=== PATIENT | female | born 1960 | race African-American/Black ===

== ENCOUNTER 2018-04-14 11:37 | Inpatient (IN) | payer OTHER ==
--- NOTE | 2018-04-14 12:09 | PDOC ---
History of Present Illness - General Chief Complaint: Weakness Stated Complaint: WEAKNESS Time Seen by Provider: 04/14/18 12:09 History Source: Patient Exam Limitations: No Limitations - History of Present Illness Initial Comments: 04/14/18 13:43 Ms Matthew is a 58 yo F with a hx of DM, HTN, asthma, and HLD presenting today with leg weakness and generalized fatigue. She states for the past month she has been having progressive generalized fatigue. At 6am, she states her legs collapsed on her when she tried to use the bathroom. Per her home health aide, she has had progressive weakness throughout the past month with difficulty walking across a room. She states that she has become acutely more lethargic. Ms. Matthew denies the following: fever, headache, recent visual changes, SOB, chest pain, abdominal pain, dysuria, hematuria, diarrhea, melena, hematochezia, and vomiting. Endorses leg weakness at the knees bilaterally. Pmhx: HLD, DM, Asthma, HTN Shx: carpal tunnel bilaterally Medications: refer to chart. does take Aspirin 81 mg Allergies: NKDA Social: denies smoking, alcohol, and drug use 04/14/18 15:18 04/14/18 15:40 Past History - Past Medical History Allergies/Adverse Reactions: Allergies Allergy/AdvReac Type Severity Reaction Status Date / Time No Known Allergies Allergy Verified 02/15/15 09:33 Home Medications: Ambulatory Orders Unobtainable 04/14/18 Review of Systems - Review of Systems Constitutional: No: Chills, Diaphoresis, Fever HEENTM: No: Recent change in vision, Nose Pain, Throat Pain, Mouth Pain Respiratory: No: Cough, Shortness of Breath Cardiac (ROS): No: Chest Pain, Palpitations, Syncope ABD/GI: No: Constipated, Diarrhea, Nausea, Rectal Bleeding, Vomiting, Tarry Stools : No: Burning, Dysuria, Hematuria Musculoskeletal: Yes: Back Pain Integumentary: No: Rash Neurological: Yes: Weakness, Unsteady Gait (now having to use a walker when previously did not need to today). No: Headache, Numbness Psychiatric: No: Change in Appetite Endocrine: No: Unexplained Weight Gain Hematologic/Lymphatic: No: Anemia *Physical Exam - Physical Exam General Appearance: Yes: Nourished, Appropriately Dressed, Other (lethargic during interview. ) HEENT: positive: EOMI, KIESHA, Normal Voice Neck: negative: Lymphadenopathy (R), Lymphadenopathy (L) Respiratory/Chest: positive: Lungs Clear, Normal Breath Sounds Cardiovascular: positive: Regular Rhythm, Regular Rate, S1, S2. negative: Systolic Murmur Gastrointestinal/Abdominal: positive: Normal Bowel Sounds. negative: Tender Lymphatic: negative: Adenopathy Musculoskeletal: negative: CVA Tenderness (R), CVA Tenderness (L) Extremity: positive: Normal Capillary Refill, Other (pitting edema bilaterally) Integumentary: positive: Normal Color, Dry, Warm Neurologic: positive: manager relationship II-XII NML intact, Fully Oriented, Alert, Motor Strength 5/5, Depressed Affect ED Treatment Course - LABORATORY CBC & Chemistry Diagram: 04/14/18 12:32 04/14/18 12:32 Medical Decision Making - Medical Decision Making 04/14/18 15:22 Ms. Matthew is a 58 yo DM, HTN, HLD, and asthma who presents to the ED with weakness. PE reveals her to be lethargic, but grossly WNL except for the pitting edema. She denies hx of CHF, SC, or CVA. DDX: sepsis vs cardiac (acs r/o ), vs metabolic (hypoglycemia as a DM, hyponatremia) Initial vitals: Initial Vital Signs Temp Pulse Resp BP Pulse Ox 99.3 F 101 H 18 71/52 99 04/14/18 12:08 04/14/18 12:08 04/14/18 12:08 04/14/18 12:08 04/14/18 12:08 Work up: Laboratory Results - last 24 hr 04/14/18 04/14/18 04/14/18 12:32 12:32 12:32 WBC 11.5 H RBC 4.63 Hgb 13.3 Hct 41.2 MCV 88.9 MCH 28.7 MCHC 32.2 RDW 14.2 Plt Count 240 MPV 8.7 Absolute Neuts (auto) 6.3 Neutrophils % 54.5 Lymphocytes % 32.4 Monocytes % 7.4 Eosinophils % 4.7 H Basophils % 1.0 Nucleated RBC % 0 PT with INR Cancelled INR Cancelled PTT (Actin FS) Sodium 137 Potassium 3.9 Chloride 101 Carbon Dioxide 26 Anion Gap 10 BUN 20 H Creatinine 4.4 H Creat Clearance w eGFR 10.30 Random Glucose 220 H Lactic Acid Calcium 8.7 Total Bilirubin 0.5 AST 17 ALT 23 Alkaline Phosphatase 70 Creatine Kinase 129 Troponin I < 0.02 Total Protein 6.6 Albumin 3.6 Urine Color Urine Appearance Urine pH Ur Specific [place] Urine Protein Urine Glucose (UA) Urine Ketones Urine Blood Urine Nitrite Urine Bilirubin Urine Urobilinogen Ur Leukocyte Esterase Blood Type Antibody Screen 04/14/18 04/14/18 04/14/18 12:32 13:22 13:22 WBC RBC Hgb Hct MCV MCH MCHC RDW Plt Count MPV Absolute Neuts (auto) Neutrophils % Lymphocytes % Monocytes % Eosinophils % Basophils % Nucleated RBC % PT with INR INR PTT (Actin FS) Sodium Potassium Chloride Carbon Dioxide Anion Gap BUN Creatinine Creat Clearance w eGFR Random Glucose Lactic Acid 2.1 H Calcium Total Bilirubin AST ALT Alkaline Phosphatase Creatine Kinase Troponin I Total Protein Albumin Urine Color Urine Appearance Urine pH Ur Specific [place] Urine Protein Urine Glucose (UA) Urine Ketones Urine Blood Urine Nitrite Urine Bilirubin Urine Urobilinogen Ur Leukocyte Esterase Blood Type O POSITIVE O POSITIVE Antibody Screen Negative 04/14/18 04/14/18 13:22 14:00 WBC RBC Hgb Hct MCV MCH MCHC RDW Plt Count MPV Absolute Neuts (auto) Neutrophils % Lymphocytes % Monocytes % Eosinophils % Basophils % Nucleated RBC % PT with INR 11.80 INR 1.04 PTT (Actin FS) 29.7 Sodium Potassium Chloride Carbon Dioxide Anion Gap BUN Creatinine Creat Clearance w eGFR Random Glucose Lactic Acid Calcium Total Bilirubin AST ALT Alkaline Phosphatase Creatine Kinase Troponin I Total Protein Albumin Urine Color Yellow Urine Appearance Slcloudy Urine pH 5.0 Ur Specific [place] 1.022 Urine Protein Negative Urine Glucose (UA) 3+ H Urine Ketones Negative Urine Blood Negative Urine Nitrite Negative Urine Bilirubin 2.0 Urine Urobilinogen 2.0 H Ur Leukocyte Esterase Negative Blood Type Antibody Screen Her vitals initially had a 71/52. 1 liter NS showed mild improvement of SBP to SBPs in the 90s. Second order of 1 liter of NS had a resulting BP of 145/73. Pt is more alert after the second liter. Based on the YOGESH and persistant weakness with elevated lactic acid and WBC, she will be admitted. 04/14/18 15:29 04/14/18 15:41 *DC/Admit/Observation/Transfer Diagnosis at time of Disposition: YOGESH (acute kidney injury), Weakness - Discharge Dispostion Decision to Admit order: Yes - Referrals - Patient Instructions - Post Discharge Activity
[2018-04-14] MEDS ORDERED: SODIUM CHLORIDE 1,000 ML IV STA ×2 (12:54→14:45)
[2018-04-14 13:38] LABS: EOS % 4.7 % (0-4.5); HEMATOCRIT 41.2 % (32.4-45.2); HEMOGLOBIN 13.3 GM/dL (10.7-15.3); LYMPH % 32.4 % (8-40); MCH 28.7 pg (25.7-33.7); MCHC 32.2 g/dl (32.0-36.0); MEAN CELL VOLUME 88.9 fl (80-96); MEAN PLT VOLUME 8.7 fl (7.5-11.1); MONO % 7.4 % (3.8-10.2); NEUT % 54.5 % (42.8-82.8); PLATELET COUNT 240 K/MM3 (134-434); RBC 4.63 M/mm3 (3.60-5.2); RDW 14.2 % (11.6-15.6); WHITE BLOOD COUNT 11.5 K/mm3 (4.0-10.0)
[2018-04-14 14:04] LABS: ALBUMIN 3.6 g/dl (3.4-5.0); ANION GAP 10 (8-16); BILIRUBIN,TOTAL 0.5 mg/dL (0.2-1.0); BLOOD UREA NITROGEN 20 mg/dL (7-18); CALCIUM 8.7 mg/dL (8.5-10.1); CHLORIDE 101 mmol/L (98-107); CO2 26 mmol/L (21-32); CREATININE 4.4 mg/dL (0.55-1.02); GLUCOSE,RANDOM 220 mg/dL (74-106); POTASSIUM 3.9 mmol/L (3.5-5.1); SGOT/AST 17 U/L (15-37); SGPT/ALT 23 U/L (12-78); SODIUM 137 mmol/L (136-145); TOT PROT 6.6 g/dl (6.4-8.2)
[2018-04-14 14:06] LABS: ALK PHOS 70 U/L (45-117)
[2018-04-14 14:13] LABS: URINE APPEARANCE SLCLOUDY; URINE GLUCOSE (UA) 3+ (NEGATIVE); URINE KETONE NEGATIVE (NEGATIVE); URINE LEUK ESTERASE NEGATIVE (NEGATIVE); URINE NITRITE NEGATIVE (NEGATIVE); URINE PROTEIN NEGATIVE (NEGATIVE)
[2018-04-14 14:24] LABS: URINE COLOR YELLOW
[2018-04-14 14:45] LABS: ACTIVATED PTT 29.7 SECONDS (25.2-36.5)
[2018-04-14 14:59] LABS: INR 1.04 (0.83-1.09); PROTHROMBIN TIME (PATIENT) 11.8 SEC (9.7-13.0)
--- NOTE | 2018-04-14 15:55 | PDOC ---
Attending Attestation - Resident Resident Name: Sebas Odell - ED Attending Attestation I have performed the following: I have examined & evaluated the patient, The case was reviewed & discussed with the resident, I agree w/resident's findings & plan, Exceptions are as noted - HPI HPI: 04/14/18 15:55 58 F with h/o DM, HTN, asthma, HLD presenting with generalized weakness. Pt states that she has been weak for about a month now, and it has progressively worsened. Pt states that today she felt her legs give out from under her. Denies falling to the floor or headstrike. Pt denies unilateral weakness. Denies CRUZ/N/V. Denies F/C. Denies CP/SOB. Pt states that she has chronic pain and has been taking oxycodone. - Physicial Exam PE: 04/14/18 15:57 "GENERAL: lethargic but arousable, in no acute distress. HEAD: No signs of trauma EYES: PERRLA, EOMI, sclera anicteric, conjunctiva clear ENT: Auricles normal inspection, hearing grossly normal, nares patent, oropharynx clear without exudates. Moist mucosa NECK: Nontender, no stepoffs, Normal ROM, supple, no lymphadenopathy, JVD, or masses LUNGS: Breath sounds equal, clear to auscultation bilaterally. No wheezes, and no crackles HEART: Regular rate and rhythm, normal S1 and S2, no murmurs, rubs or gallops ABDOMEN: Soft, nontender, normoactive bowel sounds. No guarding, no rebound. No masses EXTREMITIES: +2 PE BLE. No clubbing or cyanosis. No cords, erythema, or tenderness NEUROLOGICAL: Cranial nerves II through XII intact. 5/5 strength and sensation in all extremities, Normal speech, normal gait, normal cerebellar function SKIN: Warm, Dry, normal turgor, no rashes or lesions noted." - Medical Decision Making 04/14/18 15:57 58 F with generalized weakness. Vitals notable for hypotension and tachycardia. Afebrile in ED. Will evaluate for sepsis. Also consider dehydration. BLE edema suggestive of possible heart failure, though pt with no respiratory symptoms. - Labs, trop, cultures - CXR, UA - IVF
--- NOTE | 2018-04-14 16:23 | EKG ---
Test Reason : Blood Pressure : / mmHG Vent. Rate : 097 BPM Atrial Rate : 097 BPM P-R Int : 158 ms QRS Dur : 080 ms QT Int : 400 ms P-R-T Axes : 060 102 033 degrees QTc Int : 508 ms NORMAL SINUS RHYTHM POSSIBLE LEFT ATRIAL ENLARGEMENT RIGHTWARD AXIS CANNOT RULE OUT ANTERIOR INFARCT (CITED ON OR BEFORE 14-APR-2018) PROLONGED QT ABNORMAL ECG WHEN COMPARED WITH ECG OF 27-JUN-2008 09:32, NO SIGNIFICANT CHANGE WAS FOUND Confirmed by Michael Spencer MD ([id number]) on 04/14/2018 4:23:17 PM Referred By: Confirmed By:Michael Spencer MD
--- NOTE | 2018-04-14 17:03 | HP ---
CHIEF COMPLAINT: weakness, fall this morning PCP: Dr. Elvin Wallace HISTORY OF PRESENT ILLNESS: This is a 58 year old female with PMHx of poorly controlled DM (last Hgb A1c 11.14 March 2018), renal insufficiency (last Cr 1.4), asthma, hyperlipidemia, chronic lower back pain, obesity, obstructive sleep apnea, GERD, hypthyroidism, who presented to the ED with lower extremity weakness x1 week and mechanical fall this morning. The patient reports she usually walks around with a can (pcp confirmed the patient came to the office with a walker) and that recently, over the past week, she has started to use her walker because of lower extremity weakness. She reports today her legs "gave way" and she fell. She denies any trauma or pain from the fall. She denies any shortness of breath, chest pain, headache, dizziness, visual changes, fever, chills, nausea, vomiting, diarrhea. ER course was notable for: (1) Temp 99.3, pulse 101, BP 71/52, resp 18, O2 99% on RA (2) WBC 11.5 (3) BUN 20, Cr 4.4 (5) Lactic acid 2.1 Recent Travel: denies PAST MEDICAL HISTORY: as above PAST SURGICAL HISTORY: Social History: Smoking: quit 21 years ago Alcohol: denies Drugs: denies Family History: Allergies No Known Allergies Allergy (Verified 02/15/15 09:33) HOME MEDICATIONS: Home Medications Medication Instructions Recorded Unobtainable 04/14/18 REVIEW OF SYSTEMS CONSTITUTIONAL: Lower extremity weakness that began about 1 week ago. Absent: fever, chills, diaphoresis, malaise, loss of appetite, weight change HEENT: Absent: rhinorrhea, nasal congestion, throat pain, throat swelling, difficulty swallowing, mouth swelling, ear pain, eye pain, visual changes CARDIOVASCULAR: Absent: chest pain, syncope, palpitations, irregular heart rate, lightheadedness , peripheral edema RESPIRATORY: Absent: cough, shortness of breath, dyspnea with exertion, orthopnea, wheezing, stridor, hemoptysis GASTROINTESTINAL: Absent: abdominal pain, abdominal distension, nausea, vomiting, diarrhea, constipation, melena, hematochezia GENITOURINARY: Absent: dysuria, frequency, urgency, hesitancy, hematuria, flank pain, genital pain MUSCULOSKELETAL: Absent: myalgia, arthralgia, joint swelling, back pain, neck pain SKIN: Absent: rash, itching, pallor HEMATOLOGIC/IMMUNOLOGIC: Absent: easy bleeding, easy bruising, lymphadenopathy, frequent infections ENDOCRINE: Absent: unexplained weight gain, unexplained weight loss, heat intolerance, cold intolerance NEUROLOGIC: Absent: headache, focal weakness or paresthesias, dizziness, unsteady gait, seizure, mental status changes, bladder or bowel incontinence PSYCHIATRIC: Absent: anxiety, depression, suicidal or homicidal ideation, hallucinations. PHYSICAL EXAMINATION Vital Signs - 24 hr 04/14/18 04/14/18 04/14/18 12:08 12:30 12:45 Temperature 99.3 F Pulse Rate 101 H Pulse Rate [ 96 H 94 H Apical] Respiratory 18 20 20 Rate Blood Pressure 71/52 Blood Pressure 111/97 87/72 [Left Arm] O2 Sat by Pulse 99 98 98 Oximetry (%) 04/14/18 04/14/18 04/14/18 12:55 13:00 13:45 Temperature 98.9 F Pulse Rate Pulse Rate [ 94 H 95 H 98 H Apical] Respiratory 18 18 16 Rate Blood Pressure Blood Pressure 77/48 92/37 83/41 [Left Arm] O2 Sat by Pulse 98 98 98 Oximetry (%) 04/14/18 04/14/18 04/14/18 14:30 14:58 15:20 Temperature Pulse Rate Pulse Rate [ 100 H 99 H 99 H Apical] Respiratory 16 16 18 Rate Blood Pressure Blood Pressure 92/70 88/49 84/59 [Left Arm] O2 Sat by Pulse 98 99 100 Oximetry (%) 04/14/18 15:40 Temperature Pulse Rate Pulse Rate [ 101 H Apical] Respiratory 20 Rate Blood Pressure Blood Pressure 103/59 [Left Arm] O2 Sat by Pulse 98 Oximetry (%) GENERAL: Awake, alert, and fully oriented, in no acute distress. HEAD: Normal with no signs of trauma. EYES: Pupils equal, round and reactive to light, extraocular movements intact, sclera anicteric, conjunctiva clear. No lid lag. EARS, NOSE, THROAT: Ears normal, nares patent, oropharynx clear without exudates. Moist mucous membranes. NECK: Normal range of motion, supple without lymphadenopathy, JVD, or masses. LUNGS: Breath sounds equal, clear to auscultation bilaterally. No wheezes, and no crackles. No accessory muscle use. HEART: Regular rate and rhythm, normal S1 and S2 without murmur, rub or gallop. ABDOMEN: Soft, nontender, not distended, normoactive bowel sounds, no guarding, no rebound, no masses. No hepatomegaly or splenomegaly. MUSCULOSKELETAL: Normal range of motion at all joints. No bony deformities or tenderness. No CVA tenderness. UPPER EXTREMITIES: 2+ pulses, warm, well-perfused. No cyanosis. No clubbing. No peripheral edema. LOWER EXTREMITIES: B/l lower extremity 1+ pitting edema. 2+ pulses, warm, well- perfused. No calf tenderness. NEUROLOGICAL: Cranial nerves II-XII intact. Normal speech. Gait not observed PSYCHIATRIC: Cooperative. Good eye contact. Appropriate mood and affect. SKIN: Warm, dry, normal turgor, no rashes or lesions noted, normal capillary refill. Laboratory Results - last 24 hr 04/14/18 04/14/18 04/14/18 12:32 12:32 12:32 WBC 11.5 H RBC 4.63 Hgb 13.3 Hct 41.2 MCV 88.9 MCH 28.7 MCHC 32.2 RDW 14.2 Plt Count 240 MPV 8.7 Absolute Neuts (auto) 6.3 Neutrophils % 54.5 Lymphocytes % 32.4 Monocytes % 7.4 Eosinophils % 4.7 H Basophils % 1.0 Nucleated RBC % 0 PT with INR Cancelled INR Cancelled PTT (Actin FS) Sodium 137 Potassium 3.9 Chloride 101 Carbon Dioxide 26 Anion Gap 10 BUN 20 H Creatinine 4.4 H Creat Clearance w eGFR 10.30 Random Glucose 220 H Lactic Acid Calcium 8.7 Total Bilirubin 0.5 AST 17 ALT 23 Alkaline Phosphatase 70 Creatine Kinase 129 Troponin I < 0.02 Total Protein 6.6 Albumin 3.6 Urine Color Urine Appearance Urine pH Ur Specific [place] Urine Protein Urine Glucose (UA) Urine Ketones Urine Blood Urine Nitrite Urine Bilirubin Urine Urobilinogen Ur Leukocyte Esterase Blood Type Antibody Screen 04/14/18 04/14/18 04/14/18 12:32 13:22 13:22 WBC RBC Hgb Hct MCV MCH MCHC RDW Plt Count MPV Absolute Neuts (auto) Neutrophils % Lymphocytes % Monocytes % Eosinophils % Basophils % Nucleated RBC % PT with INR INR PTT (Actin FS) Sodium Potassium Chloride Carbon Dioxide Anion Gap BUN Creatinine Creat Clearance w eGFR Random Glucose Lactic Acid 2.1 H Calcium Total Bilirubin AST ALT Alkaline Phosphatase Creatine Kinase Troponin I Total Protein Albumin Urine Color Urine Appearance Urine pH Ur Specific [place] Urine Protein Urine Glucose (UA) Urine Ketones Urine Blood Urine Nitrite Urine Bilirubin Urine Urobilinogen Ur Leukocyte Esterase Blood Type O POSITIVE O POSITIVE Antibody Screen Negative 04/14/18 04/14/18 13:22 14:00 WBC RBC Hgb Hct MCV MCH MCHC RDW Plt Count MPV Absolute Neuts (auto) Neutrophils % Lymphocytes % Monocytes % Eosinophils % Basophils % Nucleated RBC % PT with INR 11.80 INR 1.04 PTT (Actin FS) 29.7 Sodium Potassium Chloride Carbon Dioxide Anion Gap BUN Creatinine Creat Clearance w eGFR Random Glucose Lactic Acid Calcium Total Bilirubin AST ALT Alkaline Phosphatase Creatine Kinase Troponin I Total Protein Albumin Urine Color Yellow Urine Appearance Slcloudy Urine pH 5.0 Ur Specific [place] 1.022 Urine Protein Negative Urine Glucose (UA) 3+ H Urine Ketones Negative Urine Blood Negative Urine Nitrite Negative Urine Bilirubin 2.0 Urine Urobilinogen 2.0 H Ur Leukocyte Esterase Negative Blood Type Antibody Screen Assessment: This is a 58 year old female with PMHx of poorly controlled DM ( last Hgb A1c 11.14 March 2018), renal insufficiency (last Cr 1.4), asthma, hyperlipidemia, chronic lower back pain, obesity, obstructive sleep apnea, GERD , hypothyroidism, who presented to the ED with lower extremity weakness x1 week and mechanical fall this morning. Plan: 1) YOGESH on CKD - Obstructive vs. ATN? - Patient has a history of renal insufficiency. Discussed with patient's pcp, Cr 1.8 on 03/25, repeat last week 1.4 - Patient denies any NSAID use - Patient is taking Lisinopril at home, will hold - Discussed with Dr. Mccormick, will repeat BMP now - F/u urine studies - F/u kidney ultrasound to r/o obstruction - F/u urology consult 2) Lower extremity edema - 2/2 YOGESH vs. new onset CHF? - F/u BNP - F/u b/l lower extremity dopplers 3) Poorly controlled DM - Patient has insulin pump, per hospital guidelines, patient cannot use own insulin pump - Recent HgbA1c March 2018 11.7 - BGM ACHS - ISS ACHS - F/u endocrinology consult for further recommendations 4) Hypothyroidism - Continue Synthroid 5) Obstructive sleep apnea 6) Lower extremity weakness - F/u PT consult 7) F/E/N: - Diabetic diet - Monitor electrolytes 8) Prophylaxis: - Heparin 5,000u sq bid - PT evaluation 9) Dispo: - Requires continued inpatient care CODE STATUS: FULL CODE Visit type - Emergency Visit Emergency Visit: Yes Care time: The patient presented to the Emergency Department on the above date and was hospitalized for further evaluation of their emergent condition. - New Patient This patient is new to me today: Yes Date on this admission: 04/14/18 - Critical Care Critical Care patient: No Hospitalist Screening - Colonoscopy Questionnaire Colonoscopy Questionnaire: Colonoscopy Questionnaire - Patient: 50 - 75 years old and never had a screening colonoscopy: No History of colon or rectal polyps, or CA: No History of IBD, Crohn's disease or UC: No History of abdominal radiation therapy as a child: No - Relative: 1 with colon or rectal CA, or polyps at age 60 or younger: Unknown Colon or rectal CA diagnosed at age 45 or younger: Unknown Multiple relatives with colon or rectal CA: Unknown - Outcome: Screening Result: Negative Screen
[2018-04-14] MEDS ORDERED: ALBUTEROL SO4 0.083% IH SOL 2.5 MG/3 ML VIAL.NEB. NEB PRN (17:32)
[2018-04-14] MEDS ORDERED: ROSUVASTATIN CA 10 MG TABLET (FP) PO ONE ×2 (17:45)
[2018-04-14] MEDS ORDERED: ROSUVASTATIN CA 20 MG TABLET (FP) PO ONE (17:45)
[2018-04-14] MEDS ORDERED: PANTOPRAZOLE 40 MG TABLET (FP) PO ONE (17:45)
[2018-04-14] MEDS ORDERED: EZETIMIBE 10 MG TABLET (FP) PO ONE (17:45)
[2018-04-14] MEDS ORDERED: LEVOTHYROXINE NA 50 MCG TABLET (FP) PO ONE (17:45)
[2018-04-14 18:02] LABS: ANION GAP 13 (8-16); BLOOD UREA NITROGEN 21 mg/dL (7-18); CALCIUM 8.5 mg/dL (8.5-10.1); CHLORIDE 105 mmol/L (98-107); CO2 23 mmol/L (21-32); CREATININE 4.5 mg/dL (0.55-1.02); GLUCOSE,RANDOM 224 mg/dL (74-106); POTASSIUM 4.1 mmol/L (3.5-5.1); SODIUM 141 mmol/L (136-145)
[2018-04-15] MEDS: INSULIN SLIDING SCALE (NOVOLOG) 1 VIAL SQ SCH ×5 (01:06→21:56)
[2018-04-15] MEDS ORDERED: INSULIN (NOVOLOG) ASPART 100 UNITS/ML 10ML VIAL ONE (02:09)
[2018-04-15 03:29] VITALS: BMI 43.6
[2018-04-15] MEDS ORDERED: SODIUM CHLORIDE 0.45% 1,000 ML IV SCH (08:00)
[2018-04-15] MEDS: oxyCODONE HCL 5 MG TABLET PO ONE ×2 (09:02→09:03)
[2018-04-15] MEDS: ASPIRIN COATED 81 MG TABLET.EC PO SCH (09:03)
--- NOTE | 2018-04-15 11:42 | PN ---
Progress Note (short form) - Note Progress Note: Subjective: The patient was seen and examined at the bedside, she states she is feeling better today. She has no complaints at this time. Current Medications Generic Name Dose Route Start Last Admin Trade Name Freroger PRN Reason Stop Dose Admin Albuterol Sulfate 1 amp 04/14/18 17:32 Ventolin 0.083% Nebulizer Soln - NEB RQID PRN ASTHMA Aspirin 81 mg 04/15/18 10:00 04/15/18 09:03 Ecotrin - PO 81 mg DAILY JO Administration Sodium Chloride 1,000 mls @ 42 mls/hr 04/15/18 08:00 04/15/18 09:03 1/2 Normal Saline IV 42 mls/hr ASDIR JO Administration Insulin Aspart 1 vial 04/14/18 22:00 04/15/18 06:56 Novolog Vial Sliding Scale - SQ 4 units ACHS JO Administration Protocol Objective: Vital Signs Period Temp Pulse Resp BP Sys/Urena Pulse Ox Last 24 Hr 97.8 F-99.8 F 68-102 14-20 71-120/37-97 85-100 Physical Exam: General: NAD, obese CBCD WBC 11.5 K/mm3 (4.0-10.0) H 04/14/18 12:32 RBC 4.63 M/mm3 (3.60-5.2) 04/14/18 12:32 Hgb 13.3 GM/dL (10.7-15.3) 04/14/18 12:32 Hct 41.2 % (32.4-45.2) 04/14/18 12:32 MCV 88.9 fl (80-96) 04/14/18 12:32 MCHC 32.2 g/dl (32.0-36.0) 04/14/18 12:32 RDW 14.2 % (11.6-15.6) 04/14/18 12:32 Plt Count 240 K/MM3 (134-434) 04/14/18 12:32 MPV 8.7 fl (7.5-11.1) 04/14/18 12:32 CMP Sodium 141 mmol/L (136-145) 04/14/18 17:08 Potassium 4.1 mmol/L (3.5-5.1) 04/14/18 17:08 Chloride 105 mmol/L (98-107) 04/14/18 17:08 Carbon Dioxide 23 mmol/L (21-32) 04/14/18 17:08 Anion Gap 13 (8-16) 04/14/18 17:08 BUN 21 mg/dL (7-18) H 04/14/18 17:08 Creatinine 4.5 mg/dL (0.55-1.02) H 04/14/18 17:08 Creat Clearance w eGFR 10.04 (>60) 04/14/18 17:08 Random Glucose 224 mg/dL (74-106) H 04/14/18 17:08 Calcium 8.5 mg/dL (8.5-10.1) 04/14/18 17:08 Total Bilirubin 0.5 mg/dL (0.2-1.0) 04/14/18 12:32 AST 17 U/L (15-37) 04/14/18 12:32 ALT 23 U/L (12-78) 04/14/18 12:32 Alkaline Phosphatase 70 U/L (45-117) 04/14/18 12:32 Total Protein 6.6 g/dl (6.4-8.2) 04/14/18 12:32 Albumin 3.6 g/dl (3.4-5.0) 04/14/18 12:32 CARDIAC ENZYMES Creatine Kinase 129 IU/L (26-192) 04/14/18 12:32 Troponin I < 0.02 ng/ml (0.00-0.05) 04/14/18 12:32 Microbiology 04/14/18 14:00 Urine - Urine Clean Catch Urine Culture - Final NO GROWTH OBTAINED Assessment: This is a 58 year old female with PMHx of poorly controlled DM ( last Hgb A1c 11.14 March 2018), renal insufficiency (last Cr 1.4), asthma, hyperlipidemia, chronic lower back pain, obesity, obstructive sleep apnea, GERD , hypothyroidism, who presented to the ED with lower extremity weakness x1 week and mechanical fall this morning. Plan: 1) YOGESH on CKD - Obstructive vs. ATN? - Patient has a history of renal insufficiency. Discussed with patient's pcp, Cr 1.8 on 03/25, repeat last week 1.4 - Patient denies any NSAID use - Patient is taking Lisinopril at home, will hold - FeNa 0.2%: pre-renal, start gentle hydration - Kidney ultrasound with no hydronephrosis - F/u nephrology consult 2) Lower extremity edema - 2/2 YOGESH vs. new onset CHF? - BNP wnl - F/u b/l lower extremity dopplers 3) Poorly controlled DM - Patient has insulin pump, per hospital guidelines, patient cannot use own insulin pump - Recent HgbA1c March 2018 11.7 - BGM ACHS - ISS ACHS - F/u endocrinology consult for further recommendations 4) Hypothyroidism - Continue Synthroid 5) Obstructive sleep apnea 6) Lower extremity weakness - F/u PT consult 7) F/E/N: - Diabetic diet - Monitor electrolytes 8) Prophylaxis: - Heparin 5,000u sq bid - PT evaluation 9) Dispo: - Requires continued inpatient care CODE STATUS: FULL CODE
--- NOTE | 2018-04-15 12:43 | CONSULT ---
Consult - text type - Consultation Consultation Note: Renal Consult for YOGESH on CKD This is a 58 year old woman with PMhx of CKD (baseline Cr 1.4), DM type 2, Asthma, Hyperlipidemia, Obesity, YARI, GERD, Hypothyroidism presented with complaints of LE weakness and found to have YOGESH. Pt presented with complaints of fatigue and difficulty walking. Was seen by PMD a few weeks ago and BP was low but renal function was at baseline. Denies any NSAID use. No recent contrast exposure. No CRUZ/CP/SOB/Abd pain. Has chronic lower back pain that she gets injections for. No recent Abx use. No rash on skin. PMhx: as above Allergies: NKDA Family Hx: NC Social Hx: No T/A/D ROS: as per [facility] Home Medications Medication Instructions Recorded Unobtainable 04/14/18 Vital Signs Temperature 97.8 F 04/15/18 10:30 Pulse Rate 95 H 04/15/18 10:30 Respiratory Rate 20 04/15/18 10:30 Blood Pressure 97/53 04/15/18 10:30 O2 Sat by Pulse Oximetry (%) 97 04/15/18 09:00 Intake & Output 04/12/18 04/13/18 04/14/18 04/15/18 23:59 23:59 23:59 23:59 Intake Total 50 Output Total 10 200 Balance -10 -150 Weight 108.862 kg 118.841 kg NAD Neck supple, NO JVD, awake and alert RRR, No M/R CTA, no rales or wheeze soft, obese, NT/ND Trace LE edema, no calf tenderness, cyanosis CBC, BMP 04/14/18 12:32 04/14/18 17:08 Laboratory Tests 04/14/18 04/14/18 14:00 17:20 Urine Protein Negative Urine Glucose (UA) 3+ H Urine Urobilinogen 2.0 H Ur Random Sodium 20 Ur Random Urea Nitrogn 117 Urine Creatinine 394.0 H Current Medications Albuterol Sulfate (Ventolin 0.083% Nebulizer Soln -) 1 amp NEB RQID PRN PRN Reason: ASTHMA Aspirin (Ecotrin -) 81 mg PO DAILY [facility] Last Admin: 04/15/18 09:03 Dose: 81 mg Sodium Chloride (1/2 Normal Saline) 1,000 mls @ 42 mls/hr IV ASDIR [facility] Last Admin: 04/15/18 09:03 Dose: 42 mls/hr Insulin Aspart (Novolog Vial Sliding Scale -) 1 vial SQ ACHS [facility]; Protocol Last Admin: 04/15/18 06:56 Dose: 4 units 58 year old woman with PMhx of CKD (baseline Cr 1.4), DM type 2, Asthma, Hyperlipidemia, Obesity, YARI, GERD, Hypothyroidism presented with complaints of LE weakness and found to have YOGESH. #YOGESH (Differntial: Volume depletion in setting of infection vs. renal hypoprofusion from JOÃO vs. Legionella infection vs. AIN of undetermined cause) #CKD #Hypotension/Sepsis #DM Type 2 Check Urine Eos, Urine Legionella Antigen, UPCR US of the kidney showed no obstruction or stones FeNa was 0.1% indicating preserved tubular function Will start Isotonic IVF with close monitoring of respiratory function Hold ACEi for now f/u cultures and consider Abx if pt becomes febrile or WBC trends up keep MAP > 65 Dose all meds for CrCl less then 15 Thank you Gelacio Mccormick DO
[2018-04-15] MEDS ORDERED: SODIUM CHLORIDE 1,000 ML IV STA (12:57)
[2018-04-15] MEDS ORDERED: SODIUM CHLORIDE 1,000 ML IV SCH (13:00)
[2018-04-15 16:00] LABS: ANION GAP 15 (8-16); BLOOD UREA NITROGEN 24 mg/dL (7-18); CALCIUM 8.6 mg/dL (8.5-10.1); CHLORIDE 104 mmol/L (98-107); CO2 21 mmol/L (21-32); POTASSIUM 4.7 mmol/L (3.5-5.1); SODIUM 140 mmol/L (136-145)
[2018-04-15 16:06] LABS: GLUCOSE,RANDOM 325 mg/dL (74-106)
[2018-04-16] MEDS ORDERED: INSULIN (LEVEMIR) 100 UNITS/ML UNITS SQ ONE (00:08)
--- NOTE | 2018-04-16 00:16 | CONSULT ---
Consult Consult Specialty:: endocrine Referred by:: mirella mclaughlin Np Reason for Consultation:: diabetes mellitus hyperglycemia - History of Present Illness Chief Complaint: high sugars History of Present Illness: 58 year old female with PMHx of poorly controlled DM (last Hgb A1c 11.14 March 2018), renal insufficiency (last Cr 1.4), asthma, hyperlipidemia, chronic lower back pain, obesity, obstructive sleep apnea, GERD, hypthyroidism, who presented to the ED with lower extremity weakness x1 week has noted worsening blood sugars ,despite using insulin pump to manage diabetes she has difficulty with diabetic diet and taking insulin doses to manage blood sugars.she feels fatigued easily, and pain and difficulty walking without losing ballance and strenght. - History Source History Provided By: Patient - Past Medical History ...: No - Alcohol/Substance Use Hx Alcohol Use: No - Smoking History Smoking history: Never smoked Have you smoked in the past 12 months: No Home Medications - Allergies Allergies/Adverse Reactions: Allergies Allergy/AdvReac Type Severity Reaction Status Date / Time No Known Allergies Allergy Verified 02/15/15 09:33 - Home Medications Home Medications: Ambulatory Orders Unobtainable 04/14/18 Review of Systems - Review of Systems Constitutional: reports: Lethargy Eyes: reports: No Symptoms HENT: reports: No Symptoms Neck: reports: No Symptoms Cardiovascular: reports: Shortness of Breath Respiratory: reports: Exercise Intolerance, SOB on Exertion Gastrointestinal: reports: Bloating Genitourinary: reports: No Symptoms Breasts: reports: No Symptoms Reported Musculoskeletal: reports: Muscle Pain, Muscle Cramps, Muscle Weakness Endocrine: reports: Unexplained Weight Gain Physical Exam Vital Signs: Vital Signs Temperature 99 F 04/15/18 21:00 Pulse Rate 93 H 04/15/18 21:00 Respiratory Rate 17 04/15/18 21:00 Blood Pressure 107/67 04/15/18 21:00 O2 Sat by Pulse Oximetry (%) 95 04/15/18 21:00 Constitutional: Yes: Anxious Eyes: Yes: EOM Intact HENT: Yes: Normocephalic Neck: Yes: Trachea Midline, Thyromegaly Cardiovascular: Yes: Regular Rate and Rhythm Respiratory: Yes: CTA Bilaterally Gastrointestinal: Yes: Normal Bowel Sounds ...Rectal Exam: Yes: Deferred Renal/: Yes: WNL Breast(s): Yes: WNL Musculoskeletal: Yes: WNL Extremities: Yes: WNL Neurological: Yes: Alert, Oriented Labs: CBC, BMP 04/14/18 12:32 04/15/18 15:20 Problem List - Problems (1) Type 2 diabetes mellitus with hyperosmolarity without nonketotic hyperglycemic-hyperosmolar coma ([facility]) Code(s): E11.00 - TYPE 2 DIAB W HYPROSM W/O NONKET HYPRGLY-HYPROS COMA ([facility]) (2) Hypothyroidism Code(s): E03.9 - HYPOTHYROIDISM, UNSPECIFIED (3) YOGESH (acute kidney injury) Code(s): N17.9 - ACUTE KIDNEY FAILURE, UNSPECIFIED (4) Weakness Code(s): R53.1 - WEAKNESS Assessment/Plan Current Active Problems YOGESH (acute kidney injury) (Acute) Weakness (Acute) diabetes mellitus hyperglycemia diabetic nephropathy hypertension hypothyrodism patrick thyroid nodular goiter Abnormal Lab Results 04/15/18 04/15/18 15:00 15:20 BUN 24 H Creatinine 2.0 H Random Glucose 325 H* U Random Total Protein 49 H Laboratory Results - last 24 hr 04/15/18 04/15/18 04/15/18 01:00 02:45 06:15 Sodium Potassium Chloride Carbon Dioxide Anion Gap BUN Creatinine Creat Clearance w eGFR POC Glucometer 329.11941 246 Random Glucose Lactic Acid 1.6 Calcium U Random Total Protein Urine Creatinine 04/15/18 04/15/18 04/15/18 12:41 15:00 15:00 Sodium Potassium Chloride Carbon Dioxide Anion Gap BUN Creatinine Creat Clearance w eGFR POC Glucometer 304 Random Glucose Lactic Acid Calcium U Random Total Protein 49 H Urine Creatinine 108.0 04/15/18 04/15/18 15:20 21:44 Sodium 140 Potassium 4.7 Chloride 104 Carbon Dioxide 21 Anion Gap 15 BUN 24 H Creatinine 2.0 H Creat Clearance w eGFR 25.59 POC Glucometer 299 Random Glucose 325 H* Lactic Acid Calcium 8.6 U Random Total Protein Urine Creatinine Laboratory Tests 04/14/18 04/14/18 04/15/18 12:32 17:08 01:00 POC Glucometer 329.07237 Random Glucose 220 H 224 H 04/15/18 06:15 POC Glucometer 246 Random Glucose plan: bgm qid novolog insulin doses levemir dosed 20units bid ck tsh free t4 ck hba1c
[2018-04-16] MEDS: LEVOTHYROXINE NA 50 MCG TABLET (FP) PO SCH (06:14)
[2018-04-16] MEDS: INSULIN SLIDING SCALE (NOVOLOG) 1 VIAL SQ SCH ×4 (06:19→22:03)
[2018-04-16] MEDS: INSULIN (LEVEMIR) 100 UNITS/ML UNITS SQ SCH ×2 (06:19→22:02)
[2018-04-16 06:34] LABS: BASO % 0.8 % (0-2.0); EOS % 5.6 % (0-4.5); HEMATOCRIT 33.6 % (32.4-45.2); HEMOGLOBIN 11.4 GM/dL (10.7-15.3); LYMPH % 30.6 % (8-40); MCH 29.8 pg (25.7-33.7); MEAN CELL VOLUME 87.6 fl (80-96); MEAN PLT VOLUME 8.2 fl (7.5-11.1); MONO % 6.5 % (3.8-10.2); NEUT % 56.5 % (42.8-82.8); PLATELET COUNT 217 K/MM3 (134-434); RBC 3.84 M/mm3 (3.60-5.2); RDW 13.5 % (11.6-15.6); WHITE BLOOD COUNT 8.7 K/mm3 (4.0-10.0)
[2018-04-16 06:59] LABS: ALBUMIN 2.8 g/dl (3.4-5.0); ANION GAP 10 (8-16); BLOOD UREA NITROGEN 17 mg/dL (7-18); CALCIUM 8.3 mg/dL (8.5-10.1); CHLORIDE 111 mmol/L (98-107); CO2 24 mmol/L (21-32); GLUCOSE,RANDOM 257 mg/dL (74-106); MAGNESIUM 2.1 mg/dL (1.8-2.4); PHOSPHOROUS 3.2 mg/dL (2.5-4.9); POTASSIUM 4.3 mmol/L (3.5-5.1); SGOT/AST 23 U/L (15-37); SGPT/ALT 17 U/L (12-78); SODIUM 145 mmol/L (136-145)
[2018-04-16 07:09] LABS: ALK PHOS 73 U/L (45-117); BILIRUBIN,TOTAL 0.5 mg/dL (0.2-1.0); TOT PROT 5.5 g/dl (6.4-8.2)
--- NOTE | 2018-04-16 10:09 | PN ---
Physical Exam: SUBJECTIVE: Patient seen and examined. She has c/o the room being cold and wanting a shower. She states she walked with PT and feels better. OBJECTIVE: Vital Signs Period Temp Pulse Resp BP Sys/Urena Pulse Ox Last 24 Hr 97.8 F-99 F 92-96 17-20 97-133/51-70 95 PE Neuro: alert, awake, cn 2-12intact Pulm: CTAB CV: s1 s2 rrr no mrg Abd: s nt nd + bs : camara Ext: trace le edema Laboratory Results - last 24 hr 04/15/18 04/15/18 04/15/18 12:41 15:00 15:00 WBC RBC Hgb Hct MCV MCH MCHC RDW Plt Count MPV Absolute Neuts (auto) Neutrophils % Lymphocytes % Monocytes % Eosinophils % Basophils % Nucleated RBC % Sodium Potassium Chloride Carbon Dioxide Anion Gap BUN Creatinine Creat Clearance w eGFR POC Glucometer 304 Random Glucose Hemoglobin A1c % Calcium Phosphorus Magnesium Total Bilirubin AST ALT Alkaline Phosphatase Total Protein Albumin TSH Free T4 U Random Total Protein 49 H Urine Creatinine 108.0 04/15/18 04/15/18 04/16/18 15:20 21:44 00:52 WBC RBC Hgb Hct MCV MCH MCHC RDW Plt Count MPV Absolute Neuts (auto) Neutrophils % Lymphocytes % Monocytes % Eosinophils % Basophils % Nucleated RBC % Sodium 140 Potassium 4.7 Chloride 104 Carbon Dioxide 21 Anion Gap 15 BUN 24 H Creatinine 2.0 H Creat Clearance w eGFR 25.59 POC Glucometer 299 256 Random Glucose 325 H* Hemoglobin A1c % Calcium 8.6 Phosphorus Magnesium Total Bilirubin AST ALT Alkaline Phosphatase Total Protein Albumin TSH Free T4 U Random Total Protein Urine Creatinine 04/16/18 04/16/18 04/16/18 05:30 05:30 05:30 WBC 8.7 RBC 3.84 Hgb 11.4 Hct 33.6 D MCV 87.6 MCH 29.8 MCHC 34.0 RDW 13.5 Plt Count 217 MPV 8.2 Absolute Neuts (auto) 4.9 Neutrophils % 56.5 Lymphocytes % 30.6 Monocytes % 6.5 Eosinophils % 5.6 H Basophils % 0.8 Nucleated RBC % 0 Sodium 145 Potassium 4.3 Chloride 111 H Carbon Dioxide 24 Anion Gap 10 BUN 17 Creatinine 1.0 Creat Clearance w eGFR 56.95 POC Glucometer Random Glucose 257 H Hemoglobin A1c % 10.5 H Calcium 8.3 L Phosphorus 3.2 Magnesium 2.1 Total Bilirubin 0.5 AST 23 ALT 17 Alkaline Phosphatase 73 Total Protein 5.5 L Albumin 2.8 L TSH 0.31 L Free T4 U Random Total Protein Urine Creatinine Active Medications Generic Name Dose Route Start Last Admin Trade Name Freq PRN Reason Stop Dose Admin Albuterol Sulfate 1 amp 04/14/18 17:32 Ventolin 0.083% Nebulizer Soln - NEB RQID PRN ASTHMA Aspirin 81 mg 04/15/18 10:00 04/15/18 09:03 Ecotrin - PO 81 mg DAILY JO Administration Sodium Chloride 1,000 mls @ 100 mls/hr 04/15/18 13:00 04/15/18 14:30 Normal Saline - IV 100 mls/hr ASDIR JO Administration Insulin Aspart 1 vial 04/15/18 12:45 04/16/18 06:19 Novolog Vial Sliding Scale - SQ 6 units ACHS JO Administration Protocol Insulin Detemir 20 units 04/16/18 07:00 04/16/18 06:19 Levemir Vial SQ 20 units BID@0700,2200 JO Administration Levothyroxine Sodium 50 mcg 04/16/18 07:00 04/16/18 06:14 Synthroid - PO 50 mcg DAILY@0700 JO Administration Assessment: 58 year old female with PMHx of poorly controlled DM (last Hgb A1c 11.14 March 2018), renal insufficiency (last Cr 1.4), asthma, hyperlipidemia, chronic lower back pain, obesity, obstructive sleep apnea, GERD, hypothyroidism , admitted with lower extremity weakness x1 week and mechanical fall this morning. Plan: 1. YOGESH on CKD - Pre renal - Cr improving - Lisinopril on Hold - Decrease fluids - Discontinue Camara - Renal following 2. Lower extremity edema - No evidence of DVT - Edema resolving - Check ECHO 3. Poorly controlled DM - Patient has insulin pump, per hospital guidelines, patient cannot use own insulin pump - Hgba1c 10.5, improved from 11.7 03/2018 - Levemir 20units BID 4. Hypothyroidism - Reports ? partial thyroidectomy - TSH low, Pending free t4 - Continue Synthroid 5. Obstructive sleep apnea 6. Lower extremity weakness - Ambulating well, has array of walkers at home and 5day aid 8. Ppx: - Heparin 5,000u sq bid - Daily PT Visit type - Emergency Visit Emergency Visit: Yes ED Registration Date: 04/14/18 Care time: The patient presented to the Emergency Department on the above date and was hospitalized for further evaluation of their emergent condition. - New Patient This patient is new to me today: Yes Date on this admission: 04/16/18 - Critical Care Critical Care patient: No
[2018-04-16] MEDS: ASPIRIN COATED 81 MG TABLET.EC PO SCH (10:20)
[2018-04-16] MEDS ORDERED: SODIUM CHLORIDE 1,000 ML IV SCH (10:47)
[2018-04-16] MEDS: oxyCODONE HCL 5 MG TABLET PO PRN ×2 (12:04→20:30)
--- NOTE | 2018-04-16 14:48 | PN ---
Progress Note (short form) - Note Progress Note: Renal follow up for YOGESH Pt seen and examined at the bedside no acute complaints denies any sob, chest pain, abd pain, N/V/D Vital Signs Temperature 98.6 F 04/16/18 10:00 Pulse Rate 94 H 04/16/18 10:00 Respiratory Rate 20 04/16/18 10:00 Blood Pressure 131/73 04/16/18 10:00 O2 Sat by Pulse Oximetry (%) 98 04/16/18 09:00 Intake & Output 04/13/18 04/14/18 04/15/18 04/16/18 23:59 23:59 23:59 23:59 Intake Total 410 1590 Output Total 10 2900 1800 Balance -10 -2490 -210 Weight 108.862 kg 118.841 kg NAD Trace LE edema CBC, BMP 04/16/18 05:30 04/16/18 05:30 Current Medications Albuterol Sulfate (Ventolin 0.083% Nebulizer Soln -) 1 amp NEB RQID PRN PRN Reason: ASTHMA Aspirin (Ecotrin -) 81 mg PO DAILY [facility] Last Admin: 04/16/18 10:20 Dose: 81 mg Insulin Aspart (Novolog Vial Sliding Scale -) 1 vial SQ [facility]; Protocol Last Admin: 04/16/18 11:59 Dose: 6 units Insulin Detemir (Levemir Vial) 20 units SQ BID@0700,2200 [facility] Last Admin: 04/16/18 06:19 Dose: 20 units Levothyroxine Sodium (Synthroid -) 50 mcg PO DAILY@0700 [facility] Last Admin: 04/16/18 06:14 Dose: 50 mcg Oxycodone HCl (Roxicodone -) 5 mg PO Q4H PRN PRN Reason: PAIN LEVEL 4 - 6 Last Admin: 04/16/18 12:04 Dose: 5 mg 58 year old woman with PMhx of CKD (baseline Cr 1.4), DM type 2, Asthma, Hyperlipidemia, Obesity, YARI, GERD, Hypothyroidism presented with complaints of LE weakness and found to have YOGESH. #YOGESH (Differntial: Volume depletion in setting of infection vs. renal hypoprofusion from JOÃO vs. Legionella infection vs. AIN of undetermined cause) #CKD #Hypotension/Sepsis #DM Type 2 Renal function now improved to baseline can d/c IVF at this time oral intake as tolerated would restart ACEi if renal function remains stable off IVF all cultures negative thus far Thank you Gelacio Mccormick DO
--- NOTE | 2018-04-16 16:53 | ECHO ---
Name: DERRICK LEI Exam:Adult Echocardiogram Study Date: 04/16/2018 11:59 AM Age: 58 yrs Reason For Study: EVALUATE LV Height: 65 in Weight: 262 lb BSA: 2.2 m2 MMode/2D Measurements & Calculations IVSd: 0.79 cm Ao root diam: 2.8 cm LVIDd: 4.4 cm LA dimension: 3.0 cm LVIDs: 2.9 cm LVPWd: 0.75 cm EDV(Teich): 86.8 ml ESV(Teich): 31.9 ml Doppler Measurements & Calculations MV E max milo: 120.6 cm/sec Med Peak E' Milo: 8.1 cm/sec MV A max milo: 118.4 cm/sec Med E/e': 14.8 MV E/A: 1.0 MV dec time: 0.18 sec Procedure A complete two-dimensional transthoracic echocardiogram was performed (2D, M-mode, Doppler and color flow Doppler). Left Ventricle The left ventricular size, thickness and function are normal. The left ventricular ejection fraction is normal. Ejection Fraction = 60-65%. The left ventricular wall motion is normal. Right Ventricle The right ventricle is not well visualized. The right ventricle is grossly normal size. The right delilah tricular systolic function is grossly normal. Atria Normal left and right atrial size and function. Mitral Valve There is no mitral regurgitation noted. Tricuspid Valve There is trace tricuspid regurgitation. There was insufficient TR detected to calculate RV systolic p ressure. Aortic Valve No hemodynamically significant valvular aortic stenosis. No aortic regurgitation is present. Pulmonic Valve There is no pulmonic valvular regurgitation. Great Vessels The aortic root is normal size. Pericardium/Pleura There is no pericardial effusion. Interpretation Summary The left ventricular size, thickness and function are normal. The right ventricle is grossly normal size. The right ventricular systolic function is grossly normal. There is trace tricuspid regurgitation. MD Bertrand Duffy 04/16/2018 04:51 PM
[2018-04-17] MEDS: LEVOTHYROXINE NA 50 MCG TABLET (FP) PO SCH (06:42)
[2018-04-17] MEDS: INSULIN (LEVEMIR) 100 UNITS/ML UNITS SQ SCH (06:42)
[2018-04-17] MEDS: INSULIN SLIDING SCALE (NOVOLOG) 1 VIAL SQ SCH ×2 (06:42→12:01)
[2018-04-17 06:44] LABS: ANION GAP 10 (8-16); BLOOD UREA NITROGEN 13 mg/dL (7-18); CALCIUM 8.9 mg/dL (8.5-10.1); CHLORIDE 111 mmol/L (98-107); CO2 25 mmol/L (21-32); CREATININE 0.7 mg/dL (0.55-1.02); GLUCOSE,RANDOM 213 mg/dL (74-106); POTASSIUM 3.8 mmol/L (3.5-5.1); SODIUM 146 mmol/L (136-145)
[2018-04-17 07:46] VITALS: TEMP 98.1
[2018-04-17 09:05] VITALS: BP 120/68; PULSE 90
[2018-04-17] MEDS: ASPIRIN COATED 81 MG TABLET.EC PO SCH (09:05)
--- NOTE | 2018-04-17 10:34 | DS ---
Physical Exam: SUBJECTIVE: Patient seen and examined. She appears well, at her baseline, ambulating, energy returned, urinating freely. OBJECTIVE: Vital Signs Period Temp Pulse Resp BP Sys/Urena Pulse Ox Last 24 Hr 98.1 F-98.9 F 70-92 17-20 99-153/64-87 98 PE Neuro: alert, awake, cn 2-12intact Pulm: CTAB CV: s1 s2 rrr no mrg Abd: s nt nd + bs Ext: trace le edema Laboratory Results - last 24 hr 04/16/18 04/16/18 04/16/18 05:30 11:46 17:29 Sodium Potassium Chloride Carbon Dioxide Anion Gap BUN Creatinine Creat Clearance w eGFR POC Glucometer 281 304 Random Glucose Calcium Free T4 1.28 04/16/18 04/17/18 04/17/18 21:11 05:30 06:01 Sodium 146 H Potassium 3.8 Chloride 111 H Carbon Dioxide 25 Anion Gap 10 BUN 13 Creatinine 0.7 Creat Clearance w eGFR > 60 POC Glucometer 228 212 Random Glucose 213 H Calcium 8.9 Free T4 HOSPITAL COURSE: Date of Admission:04/14/18 Date of Discharge: 04/17/18 Minutes to complete discharge: 37 Discharge Summary Reason For Visit: ACUTE KIDNEY INJURY/WEAKNESS Current Active Problems YOGESH (acute kidney injury) (Acute) Hypothyroidism (Acute) Type 2 diabetes mellitus with hyperosmolarity without nonketotic hyperglycemic- hyperosmolar coma ([facility]) (Acute) Weakness (Acute) Hospital Course: Initial Hospital Course: Briefly, this 58 year old female with PMHx of poorly controlled DM (last Hgb A1c .14 March 2018), renal insufficiency (last Cr 1.4), asthma, hyperlipidemia, chronic lower back pain, obesity, obstructive sleep apnea, GERD, hypthyroidism, presented to the ED with lower extremity weakness x1 week and mechanical fall this morning. The patient usually walks around with a can (pcp confirmed the patient came to the office with a walker) and that recently, over the past week , she has started to use her walker because of lower extremity weakness. On admission, she said her legs "gave way" and she fell. She denies any trauma or pain from the fall. Subsequent Hospital Course/Progress Note/DC summary: Assessment: 58 year old female with PMHx of poorly controlled DM (last Hgb A1c .14 March 2018), renal insufficiency (last Cr 1.4), asthma, hyperlipidemia, chronic lower back pain, obesity, obstructive sleep apnea, GERD, hypothyroidism , admitted with lower extremity weakness x1 week and mechanical fall this morning. Plan: 1. YOGESH on CKD - Possibly due to vol depletion renal hypoperfusion vs AIN - Resolved, s/p hydration and holding of meds - Restart Lisinopril 20mg daily 2. Lower extremity edema - No evidence of DVT - ECHO normal lv size, fxn, rv nml, trace TR 3. Poorly controlled DM - Resume home insulin pump on discharge, pt has in her pocket book - Hgba1c 10.5, improved from 11.7 03/2018 - Levemir 20units BID (while inpt) 4. Hypothyroidism s/p partial thyroidectomy 2009 - TSH low, free t4 wnl - Continue Synthroid 5. Obstructive sleep apnea 6. Lower extremity weakness - Ambulating well, has array of walkers at home and 5day aid Dispo: - Home with resumption of home aids - Son lives in area - PCP Dr. Wallace, [facility] location Condition: Stable - Instructions Diet, Activity, Other Instructions: Please return to the ED for any new, persistent, or worsening symptoms. Follow up with your PCP in 1 week Resume home meds as directed Referrals: Elvin Wallace [Non Staff, Medical] - Disposition: HOME - Home Medications Comprehensive Discharge Medication List: Ambulatory Orders Levothyroxine [Synthroid -] 50 mcg PO DAILY@0700 tablet 04/17/18 This patient is new to me today: No Emergency Visit: Yes ED Registration Date: 04/14/18 Care time: The patient presented to the Emergency Department on the above date and was hospitalized for further evaluation of their emergent condition. Critical Care patient: No - Discharge Referral Referred to [facility] Med [facility].C[facility] No
== END 2018-04-17 12:24 | disposition home or self-care (01) | DRG 683 ==
LOC: JER 11:37 → JERBED 16:34 → OBSVTOIN 17:10 → J4W 04-15 02:52
PROVIDERS: ADMIT Internal Medicine; ATTEND Nurse Practitioner Acute Care
DX: N17.9 Acute kidney failure, unspecified (principal); Z68.41 Body mass index [BMI] 40.0-44.9, adult; J45.909 Unspecified asthma, uncomplicated; E78.5 Hyperlipidemia, unspecified; R26.81 Unsteadiness on feet; R00.0 Tachycardia, unspecified; I95.9 Hypotension, unspecified; K21.9 Gastro-esophageal reflux disease without esophagitis; M54.5 Low back pain; G47.33 Obstructive sleep apnea (adult) (pediatric); E66.9 Obesity, unspecified; E11.65 Type 2 diabetes mellitus with hyperglycemia; E11.21 Type 2 diabetes mellitus with diabetic nephropathy; R53.1 Weakness; E06.3 Autoimmune thyroiditis; E04.9 Nontoxic goiter, unspecified; I12.9 Hypertensive chronic kidney disease with stage 1 through stage 4 chronic kidney disease, or unspecified chronic kidney disease; E11.22 Type 2 diabetes mellitus with diabetic chronic kidney disease; N18.9 Chronic kidney disease, unspecified; Z87.891 Personal history of nicotine dependence
CPT/HCPCS: 36415; 71045-TC-FY; 76775-TC; 80048; 80053; 81003; 82550; 82570; 82962; 83036; 83605; 83735; 83880; 84100; 84156; 84300; 84439; 84443; 84484; 84540; 85025; 85610; 85730; 86850; 86900; 86901; 87040; 87086; 87205; 87899; 93005; 93010; 93306-TC; 93970-TC; 97116-GP; 97162-GP; 99285-25; G0378; J7030

== ENCOUNTER 2018-04-29 15:05 | Observation (INO) | payer OTHER ==
--- NOTE | 2018-04-29 15:16 | PDOC ---
History of Present Illness - General Chief Complaint: Blood Sugar Problem Stated Complaint: Blood Sugar Problem Time Seen by Provider: 04/29/18 15:16 - History of Present Illness Initial Comments: 04/29/18 15:31 Patient is a 58 year old female with a PMH of IDDM, Renal insufficiency, HLD, Asthma, YARI, and Hypothyroidism (2/2 to goiter removal) BIBEMS c/o R handed numbness. Patient states she had a headache in addition to numbness over the last 4-5 days and when Tylenol didn't relieve her numbness but resolved her headache she decided to come to the ED for further evaluation. Denies any known trauma as well as parathesias, tingling. ROS is positive for increased urinary frequency. Patient denies chest pain, shortness of breath. Patient denies abdominal pain, diarrhea/constipation, nausea/vomiting. Patient denies dysuria/hematuria. As per EMS, BS in the 500's en route. NKDA Surgical: partial thyroidectomy, B/L carpal tunnel repair, tubal ligation As per EMR, patient evaluated in our ED earlier this month for weakness at which time patient was admitted for YOGESH. Past History - Past Medical History Allergies/Adverse Reactions: Allergies Allergy/AdvReac Type Severity Reaction Status Date / Time No Known Allergies Allergy Verified 02/15/15 09:33 Home Medications: Ambulatory Orders Levothyroxine [Synthroid -] 50 mcg PO DAILY@0700 tablet 04/17/18 Asthma: Yes COPD: No Diabetes: Yes HTN: Yes Hypercholesterolemia: Yes Thyroid Disease: Yes - Suicide/Smoking/Psychosocial Hx Smoking History: Never smoked Have you smoked in the past 12 months: No Hx Alcohol Use: No Drug/Substance Use Hx: No Hx Substance Use Treatment: No ED Treatment Course - LABORATORY CBC & Chemistry Diagram: 04/29/18 19:41 04/29/18 19:41 Medical Decision Making - Medical Decision Making 04/29/18 17:45 58 year old female presents with R hand weakness. Tachycardic. NVI, full ROM on PE + BS 500's. Initial DDx: CVA/TIA, as well as DKA, HHONK. W/u: CBC, CMP, Head CT, VBG, UA/Urine Culture. Reassess. 04/29/18 18:02 Nursing staff reports patient using her R hand to speak on the phone and drink water. 04/29/18 18:05 CBC, CMP hemolzyed. 04/29/18 21:28 Leukocytosis 13.8 UA shows 62 WBC, 3+ Leukocyte esterase Repeat BS 364, K+ 4.8 - will continue to hydrate Will give Rocephin and admit to observation for further evaluation. *DC/Admit/Observation/Transfer Diagnosis at time of Disposition: UTI (urinary tract infection) - Referrals - Patient Instructions - Post Discharge Activity
--- NOTE | 2018-04-29 15:26 | PDOC ---
Attending Attestation - Resident Resident Name: EmoryShey - ED Attending Attestation I have performed the following: I have examined & evaluated the patient, The case was reviewed & discussed with the resident, I agree w/resident's findings & plan, Exceptions are as noted - HPI HPI: 04/29/18 15:25 58y F hx of IDDM (off her meds for 2 days), obesity, asthma, HL, presents with R sided hand numbnes and weaknes. Pt ntoes the symptmos started on friday with R hand tingling lilia mild headache. The headache resolved and the pts sympts resolved until today, this morning she noticed some weakness/tingling in her R hand, she went to her pain mangement doctor who told her to go home and call the ambulance to come to the ED for evaluation. Per EMS her FS was elevated. Pt notes she hasnt taken her meds since last night. GENERAL: The patient is awake, alert, and fully oriented, Nontoxic - in no acute distress. obese HEAD: Normocephalic, atraumatic. LUNGS: Breath sounds equal, clear to auscultation bilaterally. No wheezes, no rhonchi, no rales. HEART: Regular rate and rhythm, normal S1 and S2 without murmur, rub or gallop. ABDOMEN: Soft, nontender, normoactive bowel sounds. No guarding, no rebound. . No CVA tenderness EXTREMITIES: Normal range of motion, b/l pitting edema (L>R) and hyperpigmentation around the shins , no calf tenderness, neg homans NEUROLOGICAL: No facial assymetry, Normal speech, moving all 5 extremities spaontneously, with the exception of intermittent flacid paralysis of the R hand , srtrength intact in R shoulder/Relbow. PSYCH: Normal mood, normal affect. SKIN: Warm, Dry, normal turgor, ?neuropathic pain with her tingling - however pt has beens een texting with her R hand. on my exam it is flacid will ck ct head labs to r/o hyperglycmeia/dka will reassess
[2018-04-29 17:06] LABS: VENOUS PC02 36.4 mmHg (38-52); VENOUS PH 7.39 (7.32-7.42); VENOUS PO2 45.2 mmHg (28-48)
[2018-04-29] MEDS ORDERED: HEMOQUE TEST 1 EACH EACH ONE (17:10)
[2018-04-29 19:20] LABS: URINE APPEARANCE SLCLOUDY; URINE BILIRUBIN NEGATIVE (<2.0 mg/dL); URINE COLOR STRAW; URINE GLUCOSE (UA) 3+ (NEGATIVE); URINE KETONE 1+ (NEGATIVE); URINE LEUK ESTERASE 1+ (NEGATIVE); URINE NITRITE NEGATIVE (NEGATIVE); URINE PROTEIN NEGATIVE (NEGATIVE); URINE UROBILINOGEN NEGATIVE mg/dL (0.2-1.0)
[2018-04-29] MEDS ORDERED: SODIUM CHLORIDE 0.9% 500 ML INFUS.BAG IV ONE ×2 (19:20→21:27)
[2018-04-29 19:23] LABS: EPI CELLS RARE /HPF (FEW); URINE BACTERIA RARE /hpf (NONE SEEN); URINE MUCUS RARE; YEAST MANY
[2018-04-29 20:19] LABS: BASO % 0.2 % (0-2.0); HEMATOCRIT 38.8 % (32.4-45.2); HEMOGLOBIN 12.7 GM/dL (10.7-15.3); LYMPH % 21.7 % (8-40); MCH 28.8 pg (25.7-33.7); MCHC 32.8 g/dl (32.0-36.0); MEAN CELL VOLUME 87.7 fl (80-96); MEAN PLT VOLUME 8.9 fl (7.5-11.1); MONO % 6.9 % (3.8-10.2); NEUT % 69.2 % (42.8-82.8); PLATELET COUNT 308 K/MM3 (134-434); RBC 4.42 M/mm3 (3.60-5.2); RDW 13.5 % (11.6-15.6); WHITE BLOOD COUNT 13.8 K/mm3 (4.0-10.0)
[2018-04-29 20:42] LABS: ALBUMIN 3.4 g/dl (3.4-5.0); ALK PHOS 78 U/L (45-117); ANION GAP 14 MMOL/L (8-16); BILIRUBIN,TOTAL 0.6 mg/dL (0.2-1.0); BLOOD UREA NITROGEN 18 mg/dL (7-18); CALCIUM 9.7 mg/dL (8.5-10.1); CHLORIDE 103 mmol/L (98-107); CO2 24 mmol/L (21-32); POTASSIUM 4.8 mmol/L (3.5-5.1); SGOT/AST 46 U/L (15-37); SGPT/ALT 22 U/L (12-78); SODIUM 141 mmol/L (136-145); TOT PROT 6.9 g/dl (6.4-8.2)
[2018-04-29 20:45] LABS: GLUCOSE,RANDOM 369 mg/dL (74-106)
[2018-04-29] MEDS ORDERED: CEFTRIAXONE 1 GM/50 ML BAG ONE (21:42)
--- NOTE | 2018-04-29 22:59 | HP ---
Admitting History and Physical - Primary Care Physician PCP: Lauren Marte - Admission History of Present Illness: 58 year old female with a PMH of IDDM, Renal insufficiency, HLD, Asthma, YARI, and Hypothyroidism (2/2 to goiter removal) BIBEMS c/o R handed numbness. Patient states she had a headache in addition to numbness over the last 4-5 days and when Tylenol didn't relieve her numbness but resolved her headache she decided to come to the ED for further evaluation. Denies any known trauma as well as parathesias, tingling. ROS is positive for increased urinary frequency. - Past Medical History Cardiovascular: Yes: Hyperlipdemia Pulmonary: Yes: Asthma Endocrine: Yes: Diabetes Mellitus - Smoking History Smoking history: Never smoked Have you smoked in the past 12 months: No - Alcohol/Substance Use Hx Alcohol Use: No Home Medications - Allergies Allergies/Adverse Reactions: Allergies Allergy/AdvReac Type Severity Reaction Status Date / Time No Known Allergies Allergy Verified 02/15/15 09:33 - Home Medications Home Medications: Ambulatory Orders Levothyroxine [Synthroid -] 50 mcg PO DAILY@0700 tablet 04/17/18 Clopidogrel Bisulfate [Plavix -] 75 mg PO DAILY #30 tablet 04/30/18 Cyclobenzaprine HCl [Flexeril 10 mg] 10 mg PO BID PRN 04/30/18 Diclofenac Sodium [Voltaren -] 75 mg PO BID 04/30/18 Lisinopril 20 mg PO DAILY 04/30/18 Oxycodone HCl 15 mg PO TID 04/30/18 Pregabalin [Lyrica] 100 mg PO TID 04/30/18 Rosuvastatin Calcium [Crestor] 40 mg PO DAILY 04/30/18 Zolpidem Tartrate [Ambien] 10 mg PO HS 04/30/18 oxyCODONE SR [Oxycontin] 10 mg PO BID 04/30/18 Physical Examination Vital Signs: Vital Signs Temperature 98.7 F 04/29/18 15:14 Pulse Rate 117 H 04/29/18 15:14 Respiratory Rate 20 04/29/18 15:14 Blood Pressure 148/78 04/29/18 15:14 O2 Sat by Pulse Oximetry (%) 96 04/29/18 15:14 Constitutional: Yes: No Distress HENT: Yes: Atraumatic Neck: Yes: Supple Cardiovascular: Yes: Regular Rate and Rhythm Respiratory: Yes: CTA Bilaterally Gastrointestinal: Yes: Normal Bowel Sounds Extremities: Yes: WNL Edema: No Peripheral Pulses WNL: Yes Neurological: Yes: Alert, Oriented ...Motor Strength: RUE (4/5??) Labs: CBC, BMP 04/29/18 19:41 04/29/18 19:41 Problem List - Problems (1) Numbness and tingling Assessment/Plan: willl monitor ct scan done mri per neuro Code(s): R20.0 - ANESTHESIA OF SKIN; R20.2 - PARESTHESIA OF SKIN (2) Diabetes Assessment/Plan: on insulin, bgms continue home meds Code(s): E11.9 - TYPE 2 DIABETES MELLITUS WITHOUT COMPLICATIONS Assessment/Plan Laboratory Tests 04/29/18 04/29/18 04/29/18 17:00 17:00 17:00 WBC Cancelled Corrected WBC (auto) Cancelled RBC Cancelled Hgb Cancelled Hct Cancelled MCV Cancelled MCH Cancelled MCHC Cancelled RDW Cancelled Plt Count Cancelled MPV Cancelled Absolute Neuts (auto) Cancelled Absolute Lymphs (auto) Cancelled Absolute Monos (auto) Cancelled Absolute Eos (auto) Cancelled Absolute Basos (auto) Cancelled Add Manual Diff Cancelled Neutrophils % Cancelled Lymphocytes % Cancelled Monocytes % Cancelled Eosinophils % Cancelled Basophils % Cancelled Nucleated RBC % Cancelled Platelet Estimate Cancelled Platelet Comment Cancelled Normal RBC Morphology Cancelled VBG pH 7.39 POC VBG pCO2 36.4 L POC VBG pO2 45.2 Mixed VBG HCO3 21.7 Sodium Cancelled Potassium Cancelled Chloride Cancelled Carbon Dioxide Cancelled Anion Gap Cancelled BUN Cancelled Creatinine Cancelled Creat Clearance w eGFR Cancelled Random Glucose Cancelled Calcium Cancelled Total Bilirubin Cancelled AST Cancelled ALT Cancelled Alkaline Phosphatase Cancelled Total Protein Cancelled Albumin Cancelled Urine Color Urine Appearance Urine pH Ur Specific [place] Urine Protein Urine Glucose (UA) Urine Ketones Urine Blood Urine Nitrite Urine Bilirubin Urine Urobilinogen Ur Leukocyte Esterase Urine WBC (Auto) Urine RBC (Auto) Ur Epithelial Cells Urine Bacteria Urine Mucus Urine Yeast Acetone, Qual 04/29/18 04/29/18 04/29/18 17:00 19:13 19:41 WBC 13.8 H Corrected WBC (auto) RBC 4.42 Hgb 12.7 Hct 38.8 D MCV 87.7 MCH 28.8 MCHC 32.8 RDW 13.5 Plt Count 308 D MPV 8.9 Absolute Neuts (auto) 9.6 H Absolute Lymphs (auto) Absolute Monos (auto) Absolute Eos (auto) Absolute Basos (auto) Add Manual Diff Neutrophils % 69.2 D Lymphocytes % 21.7 D Monocytes % 6.9 Eosinophils % 2.0 Basophils % 0.2 Nucleated RBC % 0 Platelet Estimate Platelet Comment Normal RBC Morphology VBG pH POC VBG pCO2 POC VBG pO2 Mixed VBG HCO3 Sodium Potassium Chloride Carbon Dioxide Anion Gap BUN Creatinine Creat Clearance w eGFR Random Glucose Calcium Total Bilirubin AST ALT Alkaline Phosphatase Total Protein Albumin Urine Color Straw Urine Appearance Slcloudy Urine pH 5.0 Ur Specific [place] 1.024 Urine Protein Negative Urine Glucose (UA) 3+ H Urine Ketones 1+ H Urine Blood 2+ H Urine Nitrite Negative Urine Bilirubin Negative Urine Urobilinogen Negative Ur Leukocyte Esterase 1+ H Urine WBC (Auto) 62 Urine RBC (Auto) 5 Ur Epithelial Cells Rare Urine Bacteria Rare Urine Mucus Rare Urine Yeast Many Acetone, Qual Cancelled 04/29/18 19:41 WBC Corrected WBC (auto) RBC Hgb Hct MCV MCH MCHC RDW Plt Count MPV Absolute Neuts (auto) Absolute Lymphs (auto) Absolute Monos (auto) Absolute Eos (auto) Absolute Basos (auto) Add Manual Diff Neutrophils % Lymphocytes % Monocytes % Eosinophils % Basophils % Nucleated RBC % Platelet Estimate Platelet Comment Normal RBC Morphology VBG pH POC VBG pCO2 POC VBG pO2 Mixed VBG HCO3 Sodium 141 Potassium 4.8 Chloride 103 Carbon Dioxide 24 Anion Gap 14 BUN 18 Creatinine 1.0 Creat Clearance w eGFR 56.95 Random Glucose 369 H* Calcium 9.7 Total Bilirubin 0.6 AST 46 H ALT 22 Alkaline Phosphatase 78 Total Protein 6.9 Albumin 3.4 Urine Color Urine Appearance Urine pH Ur Specific [place] Urine Protein Urine Glucose (UA) Urine Ketones Urine Blood Urine Nitrite Urine Bilirubin Urine Urobilinogen Ur Leukocyte Esterase Urine WBC (Auto) Urine RBC (Auto) Ur Epithelial Cells Urine Bacteria Urine Mucus Urine Yeast Acetone, Qual
[2018-04-30 01:08] VITALS: BMI 42.5
[2018-04-30] MEDS ORDERED: LEVOTHYROXINE NA 50 MCG TABLET (FP) PO SCH (07:00)
--- NOTE | 2018-04-30 08:08 | CON.NEURO ---
Consult Consult Specialty:: NEUROLOGY-[facility] Reason for Consultation:: Headache and right hand weakness - History of Present Illness History of Present Illness: 58 year old female with a PMH of IDDM, Renal insufficiency, HLD, Asthma, YARI, and Hypothyroidism (2/2 to goiter removal) BIBEMS c/o R handed numbness. Patient states she had a headache in addition to numbness over the last 4-5 days and when Tylenol didn't relieve her numbness but resolved her headache she decided to come to the ED for further evaluation. Denies any known trauma as well as parathesias, tingling. ROS is positive for increased urinary frequency. -Pt. reports on Friday this past weekend began having neck pain radiating to the head, to vertex, pulsating, 4/10 intensity that lasted for 2 days without any other accompaniments. Yesterday woke up to find right hand weakness without numbness/paresthesias. Has been on ASA 81mg daily x [address] head last night reported without abn. - Past Medical History Cardio/Vascular: Yes: Hyperlipdemia Pulmonary: Yes: Asthma ...: No Endocrine: Yes: Diabetes Mellitus - Alcohol/Substance Use Hx Alcohol Use: No - Smoking History Smoking history: Former smoker Have you smoked in the past 12 months: No Home Medications - Allergies Allergies/Adverse Reactions: Allergies Allergy/AdvReac Type Severity Reaction Status Date / Time No Known Allergies Allergy Verified 02/15/15 09:33 - Home Medications Home Medications: Ambulatory Orders Levothyroxine [Synthroid -] 50 mcg PO DAILY@0700 tablet 04/17/18 Cyclobenzaprine HCl [Flexeril 10 mg] 10 mg PO BID PRN 04/30/18 Diclofenac Sodium [Voltaren -] 75 mg PO BID 04/30/18 Lisinopril 20 mg PO DAILY 04/30/18 Oxycodone HCl 15 mg PO TID 04/30/18 Pregabalin [Lyrica] 100 mg PO TID 04/30/18 Rosuvastatin Calcium [Crestor] 40 mg PO DAILY 04/30/18 Zolpidem Tartrate [Ambien] 10 mg PO HS 04/30/18 oxyCODONE SR [Oxycontin] 10 mg PO BID 04/30/18 Physical Exam-Neuro Vital Signs: Vital Signs Temperature 98.5 F 04/30/18 06:00 Pulse Rate 105 H 04/30/18 06:00 Respiratory Rate 18 04/30/18 06:00 Blood Pressure 123/85 04/30/18 06:00 O2 Sat by Pulse Oximetry (%) 100 04/30/18 01:20 Labs: CBC, BMP 04/29/18 19:41 04/29/18 19:41 - Neuro Exam Level Of Consciousness: Yes: Alert Cranial Nerves II-XII Intact: Yes (slight diminished right NLF) DTR's: 1+ Left Bicep, 1+ Left Tricep, 1+ Left Brachioradialis, 1+ Left Achilles , 1+ Right Achilles (Bilat knee jerks-1+), 2+ Right Bicep, 2+ Right Tricep, 2+ Right Brachioradialis Motor Strength: 4/5: Right Arm (Wrist ext-5-/5, flex-3/5, hand automotive brake adjuster-2/5, proximal right arm-), 5/5: Left Arm, Left Leg, Right Leg (arm-4/5) Gait: Normal Assessment/Plan Pt. with vascular risk factors, now with pure motor right UE distal more than proximal weakness and right central facial droop(minimal?? preexisting), no hx of head/neck trauma. Diff. includes pure lacunar subcortical infarct, vertebrobasilar territory ischemic event. Other possibility is lower motor neuron right arm weakness but i really doubt this. Suggest: -MRI brain/MRA neck Telemetry/Echo/Carotid doppler/TCD. -Would place on Plavix, she has been on ASA Thank you, Bryant Dimas MD
[2018-04-30] MEDS ORDERED: CLOPIDOGREL BISULFATE 75 MG TABLET (FP) PO SCH (10:00)
[2018-04-30] MEDS ORDERED: ACETAMINOPHEN 325 MG TABLET (FP) PO PRN (10:27)
[2018-04-30] MEDS ORDERED: INSULIN (NOVOLOG) ASPART 100 UNITS/ML 10ML VIAL SQ ONE (10:40)
[2018-04-30 15:40] VITALS: BP 139/77; PULSE 84; TEMP 98.5
--- NOTE | 2018-04-30 15:40 | EKG ---
Test Reason : Blood Pressure : / mmHG Vent. Rate : 110 BPM Atrial Rate : 110 BPM P-R Int : 154 ms QRS Dur : 090 ms QT Int : 400 ms P-R-T Axes : 064 102 026 degrees QTc Int : 541 ms POOR DATA QUALITY, INTERPRETATION MAY BE ADVERSELY AFFECTED SINUS TACHYCARDIA POSSIBLE LEFT ATRIAL ENLARGEMENT RIGHTWARD AXIS ANTERIOR INFARCT , AGE UNDETERMINED PROLONGED QT ABNORMAL ECG WHEN COMPARED WITH ECG OF 14-APR-2018 12:12, NO SIGNIFICANT CHANGE WAS FOUND Confirmed by Carmelina Gil ([id number]) on 04/30/2018 3:39:58 PM Referred By: Confirmed By:Carmelina Gil
--- NOTE | 2018-04-30 17:37 | PN ---
Progress Note, Physician - Current Medication List Current Medications: Active Medications Acetaminophen (Tylenol -) 650 mg PO Q6H PRN PRN Reason: PAIN 1-4 Last Admin: 04/30/18 10:35 Dose: 650 mg Clopidogrel Bisulfate (Plavix -) 75 mg PO DAILY [facility] Last Admin: 04/30/18 10:36 Dose: 75 mg Levothyroxine Sodium (Synthroid -) 50 mcg PO DAILY@0700 [facility] Last Admin: 04/30/18 06:14 Dose: 50 mcg - Objective Vital Signs: Vital Signs Temperature 98.5 F 04/30/18 14:38 Pulse Rate 84 04/30/18 14:38 Respiratory Rate 22 04/30/18 14:38 Blood Pressure 139/77 04/30/18 14:38 O2 Sat by Pulse Oximetry (%) 100 04/30/18 09:00 Labs: CBC, BMP 04/29/18 19:41 04/29/18 19:41 Problem List - Problems (1) Numbness and tingling Code(s): R20.0 - ANESTHESIA OF SKIN; R20.2 - PARESTHESIA OF SKIN (2) Diabetes Code(s): E11.9 - TYPE 2 DIABETES MELLITUS WITHOUT COMPLICATIONS
[2018-04-30] MEDS ORDERED: BACITRACIN 15 GM TUBE TOPICAL OINTMENT TP ONE (17:59)
--- NOTE | 2018-04-30 18:01 | DS ---
Physical Examination Vital Signs: Vital Signs Temperature 98.5 F 04/30/18 14:38 Pulse Rate 84 04/30/18 14:38 Respiratory Rate 22 04/30/18 14:38 Blood Pressure 139/77 04/30/18 14:38 O2 Sat by Pulse Oximetry (%) 100 04/30/18 09:00 Constitutional: Yes: No Distress HENT: Yes: Atraumatic Neck: Yes: Supple Cardiovascular: Yes: Regular Rate and Rhythm Respiratory: Yes: CTA Bilaterally Gastrointestinal: Yes: Normal Bowel Sounds Extremities: Yes: WNL Neurological: Yes: Alert, Oriented Labs: CBC, BMP 04/29/18 19:41 04/29/18 19:41 Discharge Summary Reason For Visit: URINARY TRACT INFECTION, WEAKNESS Current Active Problems Diabetes (Acute) Numbness and tingling (Acute) UTI (urinary tract infection) (Acute) - Instructions Referrals: Sangita Dimas MD [Staff Physician] - - Home Medications Comprehensive Discharge Medication List: Ambulatory Orders Levothyroxine [Synthroid -] 50 mcg PO DAILY@0700 tablet 04/17/18 Cyclobenzaprine HCl [Flexeril 10 mg] 10 mg PO BID PRN 04/30/18 Diclofenac Sodium [Voltaren -] 75 mg PO BID 04/30/18 Lisinopril 20 mg PO DAILY 04/30/18 Oxycodone HCl 15 mg PO TID 04/30/18 Pregabalin [Lyrica] 100 mg PO TID 04/30/18 Rosuvastatin Calcium [Crestor] 40 mg PO DAILY 04/30/18 Zolpidem Tartrate [Ambien] 10 mg PO HS 04/30/18 oxyCODONE SR [Oxycontin] 10 mg PO BID 04/30/18 cleared by neuro to be dc mri/mra reviewed..no acute change pt stable to be dc
== END 2018-04-30 18:59 | disposition home or self-care (01) ==
LOC: JER 15:05 → JERBED 21:36 → J5S 04-30 01:13
PROVIDERS: ADMIT Internal Medicine; ATTEND Internal Medicine
PROC: 3E03329 Introduction of Other Anti-infective into Peripheral Vein, Percutaneous Approach (ICD-10-PCS; principal; 2018-04-29)
PROC: 3E0337Z Introduction of Electrolytic and Water Balance Substance into Peripheral Vein, Percutaneous Approach (ICD-10-PCS; 2018-04-29)
PROC: 3E013VG Introduction of Insulin into Subcutaneous Tissue, Percutaneous Approach (ICD-10-PCS; 2018-04-29)
DX: N39.0 Urinary tract infection, site not specified (principal); R20.0 Anesthesia of skin; R20.2 Paresthesia of skin; N28.9 Disorder of kidney and ureter, unspecified; I10 Essential (primary) hypertension; E11.9 Type 2 diabetes mellitus without complications; E78.5 Hyperlipidemia, unspecified; E03.9 Hypothyroidism, unspecified; J45.909 Unspecified asthma, uncomplicated; G47.33 Obstructive sleep apnea (adult) (pediatric)
CPT/HCPCS: 36415; 70450-TC; 70547-TC; 70551-TC; 80053; 81003; 81015; 82803; 82962; 85025; 87086; 93005; 93010; 93970-TC; 96372; 96374; 99285-25; G0378

== ENCOUNTER 2018-06-15 14:42 | Inpatient (IN) | payer OTHER ==
[2018-06-15] MEDS ORDERED: DEXTROSE 50%-WATER - 25 GM/50 ML VIAL IVPUSH ONE (14:58)
[2018-06-15] MEDS ORDERED: SODIUM CHLORIDE 0.9% 1000 ML INFUS.BAG IV ONE ×3 (14:58→16:38)
[2018-06-15] MEDS ORDERED: DEXTROSE 50%-WATER 25 GM/50 ML DISP.SYRIN ONE (15:16)
--- NOTE | 2018-06-15 15:38 | PDOC ---
Attending Attestation - [facility] HPI: 06/15/18 15:49 The patient is a 58 year old female, with a significant past medical history of morbid obesity, TIA (right sided deficits), IDDM (insulin pump), Renal insufficiency, HLD, HTN, Asthma, YARI, and Hypothyroidism (2/2 to goiter removal ) via EMS, who presents to the emergency department with, low blood pressure and hypoglycemia. Patient notes she felt weak and slid down a wall. As per EMS, the patient was at the podiatrists office today for diabetic wound care follow- up. While in triage she was noted to be hypotensive (55/40) and was sent to the urgent care (within the facility). While in urgent care, she had a blood glucose level of 60 and was given apple juice. She received a basic workup and had an elevated WBC of 16. Urgent care called EMS, while in the field she was noted to have a blood pressure of 60/40 and blood glucose level of 94. While in the ED, the patient is complaining of week long weakness and left knee pain. While in the ED, the patients blood glucose level was 51 and she was administered D50. She denies recent fevers, chills, headache or dizziness. She denies recent nausea, vomit, diarrhea or constipation. She denies recent dysuria, frequency, urgency or hematuria. She denies recent chest pain or shortness of breath. Allergies: NKA Past surgical history: partial thyroidectomy, B/L carpal tunnel repair, tubal ligation Social history: Nonsmoker. Denies EtOH use and recreational drug use. - Physicial Exam PE: 06/15/18 15:49 +Constitutional: Morbidly obese. Awake, alert, oriented. No acute distress. Head: Normocephalic. Atraumatic Eyes: PERRL. EOMI. Conjunctivae are not pale. ENT: Mucous membranes are moist and intact. Posterior pharynx without exudates or erythema. Uvula midline. Neck: Supple. Full ROM. No lymphadenopathy. +Cardiovascular: Weak pulses bilaterally. S1, S2 regular. Distal pulses are 2 + and symmetric. +Pulmonary/Chest: Breath sounds diminished at the bases. No wheezing, rales or rhonchi. +Abdominal: Obese. Soft and non-distended. There is no tenderness. No rebound , guarding or rigidity. No organomegaly. No palpable masses. Good bowel sounds. Back: No CVA tenderness. Musculoskeletal: No edema. No cyanosis. No clubbing. Full range of motion in all extremities. No calf tenderness. Radial/pedal pulses are intact and 2+ bilaterally +Skin: Right posterior diabetic foot wound, scaly in nature. Left posterior diabetic foot wound, dark in nature without skin breakdown. Skin is warm and dry. No petechiae. No purpura. Neurological: Alert and oriented to person, place, and time. Cranial nerves II -XII are grossly intact. Normal speech. Strength is grossly symmetric. No sensory deficits. Psychiatric: Good eye contact. Normal interaction, affect and behavior. <Abelardo Herrera - Last Filed: 06/15/18 16:00> - Resident Resident Name: Maribel Ervin - ED Attending Attestation I have performed the following: I have examined & evaluated the patient, The case was reviewed & discussed with the resident, I agree w/resident's findings & plan, Exceptions are as noted - Critical Care Time Total Critical Care Time: 45 Critical Care Statement: The care of this patient involved high complexity decision making to prevent further life threatening deterioration of the patient 's condition and/or to evaluate & treat vital organ system(s) failure or risk of failure. - Medical Decision Making 06/15/18 15:38 I, Dr. Terrie Lindquist, DO, attest that this document has been prepared under my direction and personally reviewed by me in its entirety. I further attest, that it accurately reflects all work, treatment, procedures and medical decision -making performed by me. 06/15/18 15:41 a/p: 58yo female sent from urgent care after being weak at the podiastrist office -bp low at urgent care -glucose low - given apple juice -glu was 96 w medics -pt bp 124 systolic upon arriva -weak all week with a fall (slid down the wall) on friday or friday -will send labs, cultures -diabetic wound to R foot/black area L foot -will obtain ekg, cxr, head ct -pt will need admission 06/15/18 16:07 gluc was 51 upon repeat in ED insulin pump removed given amp d50 06/15/18 16:30 pt with acute renal failure will place camara for acute I/O will admit to Dr. Marte 06/15/18 16:[address] Marte who accepts pt pt with hypotension/arf/low glucose will place in the ICU Dr. Marte requests consults to Dr. Duff/Dr. Mccormick/Dr. Rice/ 06/15/18 17:01 pt has been eval by the ICU team - recommends Tele admit <Terrie Lindquist - Last Filed: 06/15/18 17:03> Discharge Disposition <Abelardo Herrera - Last Filed: 06/15/18 16:00> - Discharge Dispostion Last Admission D/C Date: 04/17/18 Decision to Admit order: Yes <Terrie Lindquist - Last Filed: 06/15/18 17:03> - Diagnosis YOGESH (acute kidney injury), Hypoglycemia - Discharge Dispostion Condition at time of disposition: Guarded Heart Score/ECG Review - ECG Intrepretation Comment:: 06/15/18 15:51 sinus at 93, nl axis, nl interval, q waves anteriorly and laterally that are age indeterminate, no acute st/t wave findings <Terrie Lindquist - Last Filed: 06/15/18 17:03> Attestations - Attestations 06/15/18 15:49 Documentation prepared by Abelardo Herrera, acting as medical claims processor for Terrie Lindquist DO. <Abelardo Herrera - Last Filed: 06/15/18 16:00>
[2018-06-15] MEDS ORDERED: VANCOMYCIN 1 GRAM (PRE-DOCKED) 1,000 MG/250 ML BAG IVPB ONE (15:40)
[2018-06-15] MEDS ORDERED: PIPERACILLIN/TAZOB 3.375 GM 3.375 GM in DEXTROSE 5%-WATER - 50 ML IVPB ONE (15:40)
[2018-06-15 15:44] LABS: BASO % 0.2 % (0-2.0); EOS % 5.7 % (0-4.5); HEMATOCRIT 43.4 % (32.4-45.2); LYMPH % 28.1 % (8-40); MCH 27.7 pg (25.7-33.7); MCHC 32.3 g/dl (32.0-36.0); MEAN CELL VOLUME 85.6 fl (80-96); MEAN PLT VOLUME 8.5 fl (7.5-11.1); MONO % 3.9 % (3.8-10.2); NEUT % 62.1 % (42.8-82.8); PLATELET COUNT 260 K/MM3 (134-434); RBC 5.07 M/mm3 (3.60-5.2); RDW 13.4 % (11.6-15.6)
--- NOTE | 2018-06-15 16:00 | PDOC ---
History of Present Illness - General Chief Complaint: Blood Sugar Problem Stated Complaint: Blood Pressure Problem Time Seen by Provider: 06/15/18 14:56 History Source: Patient Exam Limitations: No Limitations - History of Present Illness Initial Comments: Pt, with PMH of TIA, DM (insulin pump, past DM seizures), HTN, HLD, presents from Podiatry office and [facility] with hypotension (60s/40s) and low blood glucose (40s). Pt is accompanied by her caregiver. Pt was being seen at the podiatry office for ulcer over R heel. Pt states she has had low blood sugar and weakness ("legs buckling") over the past week, along with weakness and tingling sensation in her legs b/l. Last Friday, she felt as if she was going to fall, leaned against the wall and sat down. She There have been no falls or hitting her head, no change in behavior or confusion. She states that she has been taking her medications as prescribed. She denies fevers /chills, headache, chest pain, cough, abdominal pain, urinary symptoms, diarrhea /constipation, or increased leg swelling. Pt has numbness and weakness of her R hand, residual from prior admission (pt states unchanged from baseline). Pt was given apple juice in the ambulance and repeat BG was in 90s. On arrival pt BP 124/74, repeat blood glucose 54. 06/15/18 16:00 Past History - Travel Traveled outside of the country in the last 30 days: No Close contact w/someone who was outside of country & ill: No - Past Medical History Allergies/Adverse Reactions: Allergies Allergy/AdvReac Type Severity Reaction Status Date / Time No Known Allergies Allergy Verified 06/15/18 15:28 Home Medications: Ambulatory Orders Levothyroxine [Synthroid -] 50 mcg PO DAILY@0700 tablet 04/17/18 Clopidogrel Bisulfate [Plavix -] 75 mg PO DAILY #30 tablet 04/30/18 Cyclobenzaprine HCl [Flexeril 10 mg] 10 mg PO BID PRN 04/30/18 Diclofenac Sodium [Voltaren -] 75 mg PO BID 04/30/18 Lisinopril 20 mg PO DAILY 04/30/18 Oxycodone HCl 15 mg PO TID 04/30/18 Pregabalin [Lyrica] 100 mg PO TID 04/30/18 Rosuvastatin Calcium [Crestor] 40 mg PO DAILY 04/30/18 Zolpidem Tartrate [Ambien] 10 mg PO HS 04/30/18 oxyCODONE SR [Oxycontin] 10 mg PO BID 04/30/18 Anemia: No Asthma: Yes Cancer: No Cardiac Disorders: No CVA: No COPD: No CHF: No Dementia: No Diabetes: Yes GI Disorders: No Disorders: No HTN: Yes Hypercholesterolemia: Yes Liver Disease: No Seizures: Yes (diabetic seizures, none recently) Thyroid Disease: Yes - Surgical History Appendectomy: No Cardiac Surgery: No Cholecystectomy: No Lung Surgery: No Neurologic Surgery: No Orthopedic Surgery: No - Suicide/Smoking/Psychosocial Hx Smoking History: Never smoked Have you smoked in the past 12 months: No Hx Alcohol Use: No Drug/Substance Use Hx: No Substance Use Type: Cocaine Hx Substance Use Treatment: Yes (clean since 1990) Review of Systems - Review of Systems Able to Perform ROS?: Yes Is the patient limited Mosotho proficient: No Constitutional: Yes: Weakness (weakness and feeling as if going to fall x1 week. ), Weight Stable. No: Chills, Diaphoresis, Fever, Loss of Appetite HEENTM: No: Blurred Vision, Recent change in vision, Nose Congestion, Throat Pain, Difficulty Swallowing Respiratory: No: Cough, Orthopnea, Shortness of Breath, Wheezing, Productive cough Cardiac (ROS): Yes: Lightheadedness (light-headed feeling as if going to fall, no vertigo). No: Chest Pain, Edema, Irregular Heart Rate, Palpitations, Syncope , Chest Tightness ABD/GI: No: Abdominal Distended, Constipated, Diarrhea, Nausea, Poor Appetite, Poor Fluid Intake, Vomiting, Abdominal cramping : No: Burning, Dysuria, Frequency, Flank Pain, Pain, Urgency Musculoskeletal: Yes: Joint Pain (pain in knees b/l, pain under R heel ). No: Back Pain, Joint Swelling Integumentary: No: Bruising, Rash Neurological: Yes: Paresthesia (Tingling in legs today, weakness/numbness of R hand (residual deficit)), Pre-Existing Deficit, Tingling (tingling in legs today b/l), Weakness, Unsteady Gait. No: Headache, Numbness, Seizure, Ataxia, Dizziness Psychiatric: No: Sleep Pattern Change, Change in Appetite Endocrine: No: Increased Urine, Change in Weight Hematologic/Lymphatic: No: Anemia, Blood Clots All Other Systems: Reviewed and Negative *Physical Exam - Vital Signs Last Vital Signs Temp Pulse Resp BP Pulse Ox 97.8 F 97 H 20 124/80 100 06/15/18 15:20 06/15/18 15:20 06/15/18 15:20 06/15/18 15:20 06/15/18 15:20 - Physical Exam General Appearance: Yes: Nourished, Appropriately Dressed, Mild Distress (pt A/ O x4, can answer questions appropriately. Pt has repetitive speech, complains of pain in her legs, and hands are shaky.) HEENT: positive: EOMI, KIESHA, Normal ENT Inspection, Normal Voice, Symmetrical, Pharynx Normal, Hearing Grossly Normal. negative: Scleral Icterus (R), Scleral Icterus (L), Pharyngeal Erythema, Tonsillar Exudate, Tonsillar Erythema Neck: positive: Trachea midline, Normal Thyroid, Supple. negative: Tender, Rigid, Lymphadenopathy (R), Lymphadenopathy (L) Respiratory/Chest: positive: Lungs Clear, Normal Breath Sounds, Decreased Breath Sounds (lung sounds diminished due to pt body habitus). negative: Chest Tender, Respiratory Distress, Accessory Muscle Use, Labored Respiration, Wheezing Cardiovascular: positive: Regular Rhythm, Regular Rate, S1, S2. negative: Edema (no pitting edema), JVD, Murmur Vascular Pulses: Carotid (R): 3+, Carotid (L): 3+ Gastrointestinal/Abdominal: positive: Normal Bowel Sounds, Soft, Protuberent. negative: Tender, Flat, Organomegaly, Pulsatile Mass, Guarding, Rebound, Tenderness Rectal Exam: positive: deferred Lymphatic: negative: Adenopathy, Tenderness Musculoskeletal: positive: Normal Inspection. negative: CVA Tenderness Extremity: positive: Normal Capillary Refill, Normal Inspection, Normal Range of Motion, Pelvis Stable, Pedal Edema (mild pedal edema, no pitting). negative : Tender Integumentary: positive: Normal Color, Dry, Warm, Other (3 cm round pressure ulcer to R heel (stage 2-3, scabbed over) with scaling. Stage 1 ulcer L midfoot. ). negative: Jaundice Neurologic: positive: director public service II-XII NML intact, Fully Oriented, Alert, Normal Mood/ Affect, Normal Response. negative: Motor Strength 5/5 (2/5 strength R hand, 5/ 5 strength L hand (baseline for pt)), EOM Palsy, Facial Droop, Numbness, Sensory Deficit, Finger to Nose Heart Score/ECG Review - History History: Slightly suspicious (No chest pain, pt hypotensive and hypoglycemic) - Electrocardiogram EKG: Normal - Age Age: 45-65 - Risk Factors Risk Factors Heart Score: Yes Hx Hypercholesterolemia, Yes Hx Hypertension, Yes Hx Diabetes Based on the list above the patient has:: >/=3 risk factors or Hx atherosclerotic disease - Troponin Troponin: </= normal limit - Score Heart Score - Total: 3 - ECG Impressions Normal ECG: Yes Comment:: Pt ECG relatively unchanged from prior. 06/15/18 23:52 ED Treatment Course - LABORATORY CBC & Chemistry Diagram: 06/15/18 15:30 06/15/18 15:30 - ADDITIONAL ORDERS Additional order review: Laboratory Results 06/15/18 14:56 POC Glucometer 51.51156 06/15/18 06/15/18 15:30 14:56 RBC 5.07 MCV 85.6 MCHC 32.3 RDW 13.4 MPV 8.5 Neutrophils % 62.1 Lymphocytes % 28.1 D Monocytes % 3.9 Eosinophils % 5.7 H D Basophils % 0.2 POC Glucometer 51.63793 - Medications Given in the ED: ED Medications Discontinued Medications Generic Name Dose Route Start Last Admin Trade Name Freq PRN Reason Stop Dose Admin Dextrose 25 gm 06/15/18 14:58 06/15/18 15:20 D50w (Vial) - IVPUSH 06/15/18 14:59 25 gm NOW ONE Administration Sodium Chloride 1,000 ml 06/15/18 14:58 06/15/18 15:20 Normal Saline - IV 06/15/18 14:59 1,000 ml ONCE ONE Administration Medical Decision Making - Medical Decision Making Pt seen at bedside, also seen by Dr. Lindquist. Pt presented from Podiatry office and [facility] with hypotension (60s/40s) and low blood glucose (40s). Pt is accompanied by her caregiver. Pt was given apple juice in the ambulance and repeat BG was in 90s. Pt was being seen at the podiatry office for ulcer over R heel. Pt states she has had low blood sugar and weakness ("legs buckling") over the past week. There have been no falls or hitting her head, no change in behavior or confusion. Considering infection via foot ulcer vs weakness due to hypoglycemia vs uncontrolled hypotension. On PE, pt BP 124/74 and repeat blood glucose 54. Pt neuro exam WNL for pt ( residual weakness on R hand, pt states old deficit), and has pressure ulcer with scaling on R heel. Ordered basic labs, blood cultures, lactic acid, BNP, VBG, lipase, Mg, troponin , and ECG. Ordered head CT non-contrast to r/o bleed or stroke. Phlebotomy called to assist with additional blood draws, as pt had minimal blood return on numerous sticks. Provided 25 mg D50 push, 1 L NS, 1 g Vanc and 3.375 g Zosyn for broad spectrum coverage. ECG appears relatively unchanged from last admission (April 2018). Order placed for admission. Will call admitting team once labs return. 06/15/18 15:54 WBC 16. Pending other labs. Pt placed on list for head CT. Pt eating a sandwich and states she is feeling better than arrival. 06/15/18 16:06 CMP: BUN/Cr 22/4.3, otherwise WNL Creatinine similar on last admission (4.4-4.5). Pt receiving fluids. 06/15/18 16:[address] scan, pending results. 06/15/18 16:28 Dr. Lindquist spoke with Dr. Marte for inpatient admission. ICU residents at bedside evaluating patient. Admission order was placed. Consults placed for ID, nephro, and endocrine. 06/15/18 17:01 EXAM#: TYPE/EXAM: RESULT: [id number] CT/HEAD CT WITHOUT CONTRAST Cranial CT without contrast Clinical information: headache Multiplanar imaging was performed. Intravenous contrast was not administered. No CT evidence of acute intracranial hemorrhage. There is no discrete infarct within the limitations of CT. No gross mass lesion is noted. There is no extra-axial fluid collection. The calvarium appears intact. 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 The partially imaged paranasal sinuses demonstrate no opacification. The partially imaged cervical spine demonstrates marked central spinal canal stenosis which is better visualized on recently performed cranial MRI of 04/30/2018. Impression: No CT evidence of acute intracranial pathology. 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 This finding was not present on a more remote CT exam of 2004. Correlation with 6 month follow-up CT or MRI is suggested to document stability and lack of development pathology. Note is made of marked cervical spine central canal stenosis. Cervical spine MRI may be considered, nonemergent unless otherwise clinically indicated. 06/15/18 17:03 CT showed osteoma without interval change from prior. Chest x-ray showed no acute pathology. Pt will be admitted to inpatient Telemetry, as pt determined to not need ICU observation. Pt sitting up in bed, BP 100s/70s, pt A/O x4. Davies catheter to be placed. Awaiting admission. 06/15/18 17:12 Lactic acid 1.4 06/15/18 17:34 Pt continues to be comfortable. Davies catheter in place and draining well. Will repeat BGM. Pt was seen by Dr. Marte and is awaiting telemetry bed. Pt is on telemetry box in holding and is stable. 06/15/18 23:52 *DC/Admit/Observation/Transfer Diagnosis at time of Disposition: YOGESH (acute kidney injury), Hypoglycemia, Weakness Hypotension Qualifiers: Hypotension type: unspecified hypotension type Qualified Code(s): I95.9 - Hypotension, unspecified - Discharge Dispostion Condition at time of disposition: Stable Decision to Admit order: Yes - Referrals - Patient Instructions - Post Discharge Activity
[2018-06-15 16:07] LABS: ALBUMIN 3.4 g/dl (3.4-5.0); ALK PHOS 75 U/L (45-117); ANION GAP 8 MMOL/L (8-16); BILIRUBIN,TOTAL 0.4 mg/dL (0.2-1); BLOOD UREA NITROGEN 22 mg/dL (7-18); CALCIUM 9.3 mg/dL (8.5-10.1); CHLORIDE 102 mmol/L (98-107); CO2 23 mmol/L (21-32); CREATININE 4.3 mg/dL (0.55-1.3); GLUCOSE,RANDOM 118 mg/dL (74-106); POTASSIUM 4.3 mmol/L (3.5-5.1); SGOT/AST 14 U/L (15-37); SGPT/ALT 18 U/L (13-61); SODIUM 133 mmol/L (136-145); TOT PROT 6.4 g/dl (6.4-8.2)
[2018-06-15 16:11] LABS: ARTERIAL BLOOD GAS BASE EXCESS -2.2 meq/l (-2-2); ARTERIAL BLOOD GAS PCO2 35.5 mmHg (35-45)
[2018-06-15 16:13] LABS: MAGNESIUM 1.9 mg/dL (1.8-2.4)
[2018-06-15] MEDS ORDERED: ACETAMINOPHEN 1000 MG/100 ML VIAL (NON FORMULARY) IVPB ONE (16:38)
[2018-06-15 16:48] LABS: INR 1.03 (0.83-1.09); PROTHROMBIN TIME (PATIENT) 12.2 SEC (9.7-13.0)
[2018-06-15] MEDS ORDERED: ACETAMINOPHEN INJECTION 100 ML IVPB ONE (17:19)
[2018-06-15] MEDS ORDERED: PIPERACILLIN/TAZOB 3.375 GM 3.375 GM/50 ML BAG IVPB ONE (17:20)
[2018-06-15 18:00] LABS: URINE APPEARANCE SLCLOUDY; URINE BILIRUBIN NEGATIVE (<2.0 mg/dL); URINE COLOR YELLOW; URINE GLUCOSE (UA) 3+ (NEGATIVE); URINE KETONE NEGATIVE (NEGATIVE); URINE LEUK ESTERASE NEGATIVE (NEGATIVE); URINE NITRITE NEGATIVE (NEGATIVE); URINE PROTEIN NEGATIVE (NEGATIVE); URINE UROBILINOGEN NEGATIVE mg/dL (0.2-1.0)
--- NOTE | 2018-06-15 18:42 | HP ---
Admitting History and Physical - Primary Care Physician PCP: Lauren Marte - Admission History of Present Illness: 58 year old female, with a significant past medical history of morbid obesity, TIA (right sided deficits), IDDM (insulin pump), Renal insufficiency, HLD, HTN, Asthma, YARI, and Hypothyroidism (2/2 to goiter removal) via EMS, who presents to the emergency department with, low blood pressure and hypoglycemia. Patient notes she felt weak and slid down a wall. As per EMS, the patient was at the podiatrists office today for diabetic wound care follow-up. While in triage she was noted to be hypotensive (55/40) and was sent to the urgent care (within the facility). While in urgent care, she had a blood glucose level of 60 and was given apple juice. She received a basic workup and had an elevated WBC of 16. Urgent care called EMS, while in the field she was noted to have a blood pressure of 60/40 and blood glucose level of 94. While in the ED, the patient is complaining of week long weakness and left knee pain. While in the ED, the patients blood glucose level was 51 and she was administered D50. - Past Medical History Cardiovascular: Yes: Hyperlipdemia Pulmonary: Yes: Asthma Endocrine: Yes: Diabetes Mellitus - Smoking History Smoking history: Never smoked Have you smoked in the past 12 months: No - Alcohol/Substance Use Hx Alcohol Use: No Home Medications - Allergies Allergies/Adverse Reactions: Allergies Allergy/AdvReac Type Severity Reaction Status Date / Time No Known Allergies Allergy Verified 06/15/18 15:28 - Home Medications Home Medications: Ambulatory Orders Levothyroxine [Synthroid -] 50 mcg PO DAILY@0700 tablet 04/17/18 Clopidogrel Bisulfate [Plavix -] 75 mg PO DAILY #30 tablet 04/30/18 Rosuvastatin Calcium [Crestor] 40 mg PO DAILY 04/30/18 Physical Examination Vital Signs: Vital Signs Temperature 98.6 F 06/15/18 16:03 Pulse Rate 94 H 06/15/18 16:14 Respiratory Rate 18 06/15/18 16:03 Blood Pressure 103/54 L 06/15/18 16:14 O2 Sat by Pulse Oximetry (%) 98 06/15/18 16:03 Constitutional: Yes: No Distress HENT: Yes: Atraumatic Neck: Yes: Supple Cardiovascular: Yes: Regular Rate and Rhythm Respiratory: Yes: Rhonchi, Wheezes Gastrointestinal: Yes: Normal Bowel Sounds Extremities: Yes: WNL Edema: Yes Edema: LLE: 2+, RLE: 2+ Neurological: Yes: Alert, Oriented Labs: CBC, BMP 06/15/18 15:30 06/15/18 15:30 Problem List - Problems (1) YOGESH (acute kidney injury) Assessment/Plan: start ivf fu labs renal consult Code(s): N17.9 - ACUTE KIDNEY FAILURE, UNSPECIFIED (2) Hypoglycemia Assessment/Plan: monitor Code(s): E16.2 - HYPOGLYCEMIA, UNSPECIFIED (3) Hypotension Assessment/Plan: on ivf monitor Code(s): I95.9 - HYPOTENSION, UNSPECIFIED Qualifiers: Hypotension type: unspecified hypotension type Qualified Code(s): I95.9 - Hypotension, unspecified (4) Diabetes Assessment/Plan: on insulin bgms Code(s): E11.9 - TYPE 2 DIABETES MELLITUS WITHOUT COMPLICATIONS (5) Hypothyroidism Assessment/Plan: on meds Code(s): E03.9 - HYPOTHYROIDISM, UNSPECIFIED Assessment/Plan Laboratory Tests 06/15/18 06/15/18 06/15/18 14:56 15:30 15:30 WBC RBC Hgb Hct MCV MCH MCHC RDW Plt Count MPV Absolute Neuts (auto) Neutrophils % Lymphocytes % Monocytes % Eosinophils % Basophils % Nucleated RBC % PT with INR INR PTT (Actin FS) 28.3 Anticoagulation Therapy ABG pH ABG pCO2 at Pt Temp ABG pO2 at Pt Temp ABG HCO3 ABG O2 Sat (Measured) ABG O2 Content ABG Base Excess O2 Delivery Device Oxygen Flow Rate Vent Mode Vent Rate Mechanical Rate Pressure Support Vent Sodium 133 L Potassium 4.3 Chloride 102 Carbon Dioxide 23 Anion Gap 8 BUN 22 H Creatinine 4.3 H Creat Clearance w eGFR 10.58 POC Glucometer 51.81758 Random Glucose 118 H Lactic Acid Calcium 9.3 Magnesium Total Bilirubin 0.4 AST 14 L ALT 18 Alkaline Phosphatase 75 Creatine Kinase 97 Troponin I < 0.02 B-Natriuretic Peptide Total Protein 6.4 Albumin 3.4 Lipase TSH Urine Color Urine Appearance Urine pH Ur Specific [place] Urine Protein Urine Glucose (UA) Urine Ketones Urine Blood Urine Nitrite Urine Bilirubin Urine Urobilinogen Ur Leukocyte Esterase 06/15/18 06/15/18 06/15/18 15:30 15:30 15:30 WBC 16.0 H RBC 5.07 Hgb 14.0 Hct 43.4 MCV 85.6 MCH 27.7 MCHC 32.3 RDW 13.4 Plt Count 260 MPV 8.5 Absolute Neuts (auto) 9.9 H Neutrophils % 62.1 Lymphocytes % 28.1 D Monocytes % 3.9 Eosinophils % 5.7 H D Basophils % 0.2 Nucleated RBC % 0 PT with INR INR PTT (Actin FS) Anticoagulation Therapy ABG pH ABG pCO2 at Pt Temp ABG pO2 at Pt Temp ABG HCO3 ABG O2 Sat (Measured) ABG O2 Content ABG Base Excess O2 Delivery Device Oxygen Flow Rate Vent Mode Vent Rate Mechanical Rate Pressure Support Vent Sodium Potassium Chloride Carbon Dioxide Anion Gap BUN Creatinine Creat Clearance w eGFR POC Glucometer Random Glucose Lactic Acid Calcium Magnesium 1.9 Total Bilirubin AST ALT Alkaline Phosphatase Creatine Kinase Troponin I B-Natriuretic Peptide Total Protein Albumin Lipase 42 L TSH Urine Color Yellow Urine Appearance Slcloudy Urine pH 5.0 Ur Specific [place] 1.014 Urine Protein Negative Urine Glucose (UA) 3+ H Urine Ketones Negative Urine Blood Negative Urine Nitrite Negative Urine Bilirubin Negative Urine Urobilinogen Negative Ur Leukocyte Esterase Negative 06/15/18 06/15/18 06/15/18 15:45 16:00 16:00 WBC RBC Hgb Hct MCV MCH MCHC RDW Plt Count MPV Absolute Neuts (auto) Neutrophils % Lymphocytes % Monocytes % Eosinophils % Basophils % Nucleated RBC % PT with INR 12.20 INR 1.03 PTT (Actin FS) Anticoagulation Therapy ABG pH ABG pCO2 at Pt Temp ABG pO2 at Pt Temp ABG HCO3 ABG O2 Sat (Measured) ABG O2 Content ABG Base Excess O2 Delivery Device Oxygen Flow Rate Vent Mode Vent Rate Mechanical Rate Pressure Support Vent Sodium Potassium Chloride Carbon Dioxide Anion Gap BUN Creatinine Creat Clearance w eGFR POC Glucometer Random Glucose Lactic Acid 1.4 Calcium Magnesium Total Bilirubin AST ALT Alkaline Phosphatase Creatine Kinase Troponin I B-Natriuretic Peptide 59.7 Total Protein Albumin Lipase TSH Urine Color Urine Appearance Urine pH Ur Specific [place] Urine Protein Urine Glucose (UA) Urine Ketones Urine Blood Urine Nitrite Urine Bilirubin Urine Urobilinogen Ur Leukocyte Esterase 06/15/18 06/15/18 06/15/18 16:02 16:57 17:12 WBC RBC Hgb Hct MCV MCH MCHC RDW Plt Count MPV Absolute Neuts (auto) Neutrophils % Lymphocytes % Monocytes % Eosinophils % Basophils % Nucleated RBC % PT with INR INR PTT (Actin FS) Anticoagulation Therapy No Result Required. ABG pH 7.40 ABG pCO2 at Pt Temp 35.5 ABG pO2 at Pt Temp 123.0 H ABG HCO3 21.5 L ABG O2 Sat (Measured) 99.0 H ABG O2 Content 19.0 ABG Base Excess -2.2 L O2 Delivery Device No Result Required. Oxygen Flow Rate No Result Required. Vent Mode No Result Required. Vent Rate No Result Required. Mechanical Rate No Result Required. Pressure Support Vent No Result Required. Sodium Potassium Chloride Carbon Dioxide Anion Gap BUN Creatinine Creat Clearance w eGFR POC Glucometer 131.80075 Random Glucose Lactic Acid Calcium Magnesium Total Bilirubin AST ALT Alkaline Phosphatase Creatine Kinase Troponin I B-Natriuretic Peptide Total Protein Albumin Lipase TSH 0.56 Urine Color Urine Appearance Urine pH Ur Specific [place] Urine Protein Urine Glucose (UA) Urine Ketones Urine Blood Urine Nitrite Urine Bilirubin Urine Urobilinogen Ur Leukocyte Esterase Active Medications Generic Name Dose Route Start Last Admin Trade Name Lucq PRN Reason Stop Dose Admin Clopidogrel Bisulfate 75 mg 06/16/18 10:00 06/17/18 11:11 Plavix - PO 75 mg DAILY [facility] Administration Heparin Sodium (Porcine) 5,000 unit 06/15/18 22:00 06/17/18 11:11 Heparin - SQ 5,000 unit BID JO Administration Sodium Chloride 1,000 mls @ 100 mls/hr 06/16/18 15:15 06/17/18 16:33 Normal Saline - IV 100 mls/hr ASDIR JO Administration Insulin Aspart 1 vial 06/17/18 07:00 06/17/18 11:30 Novolog Vial Sliding Scale - SQ Not Given ACHS [facility] Protocol Insulin Detemir 10 units 06/17/18 22:00 Levemir Vial SQ HS [facility] Insulin Detemir 27 units 06/17/18 07:00 06/17/18 06:20 Levemir Vial SQ 27 units AM JO Administration Levothyroxine Sodium 50 mcg 06/16/18 07:00 06/17/18 06:19 Synthroid - PO 50 mcg DAILY@0700 JO Administration Oxycodone HCl 15 mg 06/15/18 22:59 06/17/18 11:10 Roxicodone - PO 15 mg BID PRN Administration PAIN LEVEL 6-10 Rosuvastatin Calcium 40 mg 06/17/18 22:00 Crestor - PO HS JO Zolpidem Tartrate 10 mg 06/15/18 21:00 Ambien - PO HS PRN INSOMNIA
[2018-06-15] MEDS ORDERED: ZOLPIDEM TARTRATE 5 MG TABLET PO PRN (21:00)
[2018-06-15] MEDS ORDERED: HEPARIN NA (PORCINE) 5,000 UNITS/ML 1ML VIAL ONE (21:46)
[2018-06-15] MEDS ORDERED: ZOLPIDEM TARTRATE 5 MG TABLET ONE (21:46)
[2018-06-15] MEDS ORDERED: PATIENT'S OWN MEDICATION (NON-FORMULARY) (Zolpidem Tartrate [Ambien] 10 MG) PO SCH (22:00)
[2018-06-15] MEDS ORDERED: PATIENT'S OWN MEDICATION (NON-FORMULARY) (Oxycodone Hcl [Oxycodone Hcl] 15 MG) PO SCH (22:00)
[2018-06-15] MEDS: ROSUVASTATIN CA 40 MG TABLET PO SCH (23:00)
[2018-06-15] MEDS: HEPARIN NA (PORCINE) 5,000 UNITS/ML 1ML VIAL SQ SCH (23:00)
[2018-06-15] MEDS ORDERED: oxyCODONE HCL 5 MG TABLET ONE (23:03)
[2018-06-16 07:23] LABS: BASO % 0.8 % (0-2.0); EOS % 7.9 % (0-4.5); HEMATOCRIT 40.6 % (32.4-45.2); LYMPH % 24.4 % (8-40); MCH 27.5 pg (25.7-33.7); MEAN CELL VOLUME 85.8 fl (80-96); MEAN PLT VOLUME 8.9 fl (7.5-11.1); MONO % 3.7 % (3.8-10.2); NEUT % 63.2 % (42.8-82.8); PLATELET COUNT 237 K/MM3 (134-434); RBC 4.73 M/mm3 (3.60-5.2); RDW 13.4 % (11.6-15.6); WHITE BLOOD COUNT 11.2 K/mm3 (4.0-10.0)
[2018-06-16 07:56] LABS: ALBUMIN 3.4 g/dl (3.4-5.0); ALK PHOS 81 U/L (45-117); ANION GAP 7 MMOL/L (8-16); BILIRUBIN,TOTAL 0.5 mg/dL (0.2-1); BLOOD UREA NITROGEN 20 mg/dL (7-18); CALCIUM 8.7 mg/dL (8.5-10.1); CHLORIDE 104 mmol/L (98-107); CO2 26 mmol/L (21-32); CREATININE 2.2 mg/dL (0.55-1.3); GLUCOSE,RANDOM 169 mg/dL (74-106); POTASSIUM 4.7 mmol/L (3.5-5.1); SGOT/AST 18 U/L (15-37); SGPT/ALT 16 U/L (13-61); SODIUM 137 mmol/L (136-145); TOT PROT 6.5 g/dl (6.4-8.2)
[2018-06-16] MEDS: CLOPIDOGREL BISULFATE 75 MG TABLET (FP) PO SCH (09:41)
[2018-06-16] MEDS: LEVOTHYROXINE NA 50 MCG TABLET (FP) PO SCH (09:41)
[2018-06-16] MEDS: HEPARIN NA (PORCINE) 5,000 UNITS/ML 1ML VIAL SQ SCH ×2 (09:41→21:10)
[2018-06-16] MEDS: oxyCODONE HCL 5 MG TABLET PO PRN (10:00)
[2018-06-16] MEDS ORDERED: oxyCODONE HCL 5 MG TABLET ONE (10:00)
[2018-06-16] MEDS ORDERED: LISINOPRIL 20 MG TABLET (FP) PO SCH (10:00)
--- NOTE | 2018-06-16 11:48 | EKG ---
Test Reason : Blood Pressure : / mmHG Vent. Rate : 093 BPM Atrial Rate : 093 BPM P-R Int : 152 ms QRS Dur : 088 ms QT Int : 406 ms P-R-T Axes : 034 107 034 degrees QTc Int : 504 ms NORMAL SINUS RHYTHM POSSIBLE LATERAL INFARCT , AGE UNDETERMINED PROLONGED QT ABNORMAL ECG WHEN COMPARED WITH ECG OF 29-APR-2018 23:57, SINUS RHYTHM HAS REPLACED ELECTRONIC VENTRICULAR PACEMAKER Confirmed by Michael Spencer MD ([id number]) on 06/16/2018 11:47:37 AM Referred By: Confirmed By:Michael Spencer MD
--- NOTE | 2018-06-16 12:43 | CON.PULM ---
Consult Consult Specialty:: PULMONARY Referred by:: Dr. Marte Reason for Consultation:: hypotension - History of Present Illness Chief Complaint: hypotension History of Present Illness: 58yo female with h/o HTN, DM on insulin pump, hyperlipidemia, asthma, obstructive sleep apnea, morbid obesity, h/o TIA, CKD, hypothyroidism who was sent from the allergy nurse office after she became suddenly weak and her knees buckled while standing up from a chair. She was noted to be hypotensive and hypoglycemic. She was in her USOH prior to that episode. Denies any fevers, chills or sweats. No sick contacts. No cough, dysuria or diarrhea. She as given juice PO and dextrose IV and now she feels at her baseline. Last BP stable. No shortness of breath or chest pain. She is a former smoker. - History Source History Provided By: Patient, Medical Record Limitations to Obtaining History: No Limitations - Past Medical History Cardio/Vascular: Yes: Hyperlipdemia Pulmonary: Yes: Asthma Endocrine: Yes: Diabetes Mellitus - Alcohol/Substance Use Hx Alcohol Use: No - Smoking History Smoking history: Never smoked Have you smoked in the past 12 months: No Home Medications - Allergies Allergies/Adverse Reactions: Allergies Allergy/AdvReac Type Severity Reaction Status Date / Time No Known Allergies Allergy Verified 06/15/18 15:28 - Home Medications Home Medications: Ambulatory Orders Levothyroxine [Synthroid -] 50 mcg PO DAILY@0700 tablet 04/17/18 Clopidogrel Bisulfate [Plavix -] 75 mg PO DAILY #30 tablet 04/30/18 Cyclobenzaprine HCl [Flexeril 10 mg] 10 mg PO BID PRN 04/30/18 Diclofenac Sodium [Voltaren -] 75 mg PO BID 04/30/18 Lisinopril 20 mg PO DAILY 04/30/18 Oxycodone HCl 15 mg PO TID 04/30/18 Pregabalin [Lyrica] 100 mg PO TID 04/30/18 Rosuvastatin Calcium [Crestor] 40 mg PO DAILY 04/30/18 Zolpidem Tartrate [Ambien] 10 mg PO HS 04/30/18 oxyCODONE SR [Oxycontin] 10 mg PO BID 04/30/18 Review of Systems - Review of Systems Constitutional: reports: Weakness. denies: Chills, Fever Eyes: denies: Recent Change in Vision HENT: denies: Nasal Congestion, Throat Pain Neck: denies: Stiffness, Tenderness Cardiovascular: denies: Chest Pain, Palpitations, Shortness of Breath Respiratory: denies: Cough, SOB, Wheezing Gastrointestinal: denies: Abdominal Pain, Nausea, Vomiting Genitourinary: denies: Dysuria, Hematuria Neurological: reports: Dizziness. denies: Headache Endocrine: denies: Unexplained Weight Loss Physical Exam Vital Sings: Vital Signs Temperature 98.2 F 06/16/18 09:57 Pulse Rate 90 06/16/18 09:57 Respiratory Rate 18 06/16/18 09:57 Blood Pressure 121/63 06/16/18 09:57 O2 Sat by Pulse Oximetry (%) 98 06/16/18 10:02 Constitutional: Yes: No Distress, Calm Eyes: Yes: Conjunctiva Clear, EOM Intact HENT: Yes: Atraumatic, Normocephalic Neck: Yes: Supple, Trachea Midline Cardiovascular: Yes: Regular Rate and Rhythm Respiratory: Yes: Regular, Diminished (decreased breath sounds at the bases) ...Clubbing: No Gastrointestinal: Yes: Normal Bowel Sounds, Soft, Abdomen, Obese. No: Tenderness Edema: No Neurological: Yes: Alert, Oriented Labs: CBC, BMP 06/16/18 06:25 06/16/18 06:25 ABG Results ABG pH 7.40 (7.35-7.45) 06/15/18 16:02 ABG pCO2 at Pt Temp 35.5 mmHg (35-45) 06/15/18 16:02 ABG pO2 at Pt Temp 123.0 mmHg (80-100) H 06/15/18 16:02 ABG HCO3 21.5 meq/L (22-26) L 06/15/18 16:02 ABG O2 Sat (Measured) 99.0 % (90-98.9) H 06/15/18 16:02 ABG O2 Content 19.0 % vol (15-22) 06/15/18 16:02 ABG Base Excess -2.2 meq/l (-2-2) L 06/15/18 16:02 Imaging - Results Chest X-ray: Report Reviewed, Image Reviewed (no infiltrates) Problem List - Problems (1) Hypoglycemia Code(s): E16.2 - HYPOGLYCEMIA, UNSPECIFIED (2) Hypotension Code(s): I95.9 - HYPOTENSION, UNSPECIFIED Qualifiers: Hypotension type: unspecified hypotension type Qualified Code(s): I95.9 - Hypotension, unspecified (3) YOGESH (acute kidney injury) Code(s): N17.9 - ACUTE KIDNEY FAILURE, UNSPECIFIED (4) Diabetes Code(s): E11.9 - TYPE 2 DIABETES MELLITUS WITHOUT COMPLICATIONS (5) Hypothyroidism Code(s): E03.9 - HYPOTHYROIDISM, UNSPECIFIED Assessment/Plan Hypoglycemia resolved Hypotension resolved Acute Kidney Injury DM HTN Hyperlipidemia Asthma Hypothyroidism Morbid Obesity/YARI - monitor glucose - was given empiric antibiotics, can monitor - f/u cultures - IVF - monitor urine output, creatinine - inhaled bronchodilators as needed - DVT prophylaxis Thank you for this consult Jame Robledo MD
--- NOTE | 2018-06-16 15:10 | CONSULT ---
Consult - text type - Consultation Consultation Note: Renal Consult for YOGESH This is a 58 year old AA woman with hx of hypertension, IDDM, Hyperlipidemia, YARI, Obesity, TIA, Hypothyroidism who was admitted for symptomatic hypotension r /o sepsis with YOGESH. Pt known to our service from prior admissions. Pt had prior YOGESH that resolved. Denies any fever, chills, N/V/D. Has healing wound on heel of right foot. Pt was taking NSAIDs at home for chronic back pain. pt was on also on ACEi. No flank pain, dysuria, N/V/D. Denies any LE swelling. PMhx: as above Allergies: NKDA Family Hx: NC Social Hx: No T/A/D ROS: as per HPI, all other pertinent ros negative Home Medications Medication Instructions Recorded Levothyroxine [Synthroid -] 50 mcg PO DAILY@0700 tablet 04/17/18 Clopidogrel Bisulfate [Plavix -] 75 mg PO DAILY #30 tablet 04/30/18 Cyclobenzaprine HCl [Flexeril 10 10 mg PO BID PRN 04/30/18 mg] Diclofenac Sodium [Voltaren -] 75 mg PO BID 04/30/18 Lisinopril 20 mg PO DAILY 04/30/18 Oxycodone HCl 15 mg PO TID 04/30/18 Pregabalin [Lyrica] 100 mg PO TID 04/30/18 Rosuvastatin Calcium [Crestor] 40 mg PO DAILY 04/30/18 Zolpidem Tartrate [Ambien] 10 mg PO HS 04/30/18 oxyCODONE SR [Oxycontin] 10 mg PO BID 04/30/18 Intake & Output 06/13/18 06/14/18 06/15/18 06/16/18 23:59 23:59 23:59 23:59 Output Total 1600 Balance -1600 Weight 158.757 kg Vital Signs Temperature 98.2 F 06/16/18 14:45 Pulse Rate 87 06/16/18 14:45 Respiratory Rate 17 06/16/18 14:45 Blood Pressure 107/45 L 06/16/18 14:45 O2 Sat by Pulse Oximetry (%) 97 06/16/18 14:45 NAD awake and alert neck supple, no jvd RRR, no M/R CTA, no rales or wheeze soft NT/ND No LE edema, clubbing or cyanosis no bladder distension CBC, BMP 06/16/18 06:25 06/16/18 06:25 Current Medications Clopidogrel Bisulfate (Plavix -) 75 mg PO DAILY [facility] Last Admin: 06/16/18 09:41 Dose: 75 mg Heparin Sodium (Porcine) (Heparin -) 5,000 unit SQ BID [facility] Last Admin: 06/16/18 09:41 Dose: 5,000 unit Levothyroxine Sodium (Synthroid -) 50 mcg PO DAILY@0700 [facility] Last Admin: 06/16/18 09:41 Dose: 50 mcg Lisinopril (Prinivil) 20 mg PO DAILY [facility] Last Admin: 06/16/18 09:41 Dose: 20 mg Oxycodone HCl (Roxicodone -) 15 mg PO BID PRN PRN Reason: PAIN LEVEL 6-10 Last Admin: 06/16/18 10:00 Dose: 15 mg Rosuvastatin Calcium (Crestor -) 40 mg PO HS [facility] Last Admin: 06/15/18 23:00 Dose: 40 mg Zolpidem Tartrate (Ambien -) 10 mg PO HS PRN PRN Reason: INSOMNIA 58 year old AA woman with hx of hypertension, IDDM, Hyperlipidemia, YARI, Obesity , TIA, Hypothyroidism who was admitted for symptomatic hypotension r/o sepsis with YOGESH. #YOGESH in setting of hypotension + NSIAD and JOÃO causing renal hypoprofusion #Hypotension/Weakness #Leukocytosis r/o sepsis #LE wound #DM #Hx of hypertension Renal function improving would continue IVF hydration hold NSAIDs and ACEi for now until renal function recovers Check urine studies for FeNa, UPCR BP ok, trend off meds s/p ABx in the ED, additional Abx as needed per ID f/u cultures Trend blood sugars, insulin as needed Consider podiatry follow up of LE wound Thank you Will follow Gelacio Mccormick DO
[2018-06-16] MEDS: SODIUM CHLORIDE 1,000 ML IV SCH (15:35)
[2018-06-16 15:56] LABS: URINE APPEARANCE SLCLOUDY; URINE BILIRUBIN NEGATIVE (<2.0 mg/dL); URINE COLOR LTYELLOW; URINE GLUCOSE (UA) 3+ (NEGATIVE); URINE KETONE NEGATIVE (NEGATIVE); URINE LEUK ESTERASE TRACE (NEGATIVE); URINE NITRITE NEGATIVE (NEGATIVE); URINE PROTEIN 1+ (NEGATIVE); URINE UROBILINOGEN NEGATIVE mg/dL (0.2-1.0)
--- NOTE | 2018-06-16 16:01 | PN ---
Progress Note, Physician - Current Medication List Current Medications: Active Medications Clopidogrel Bisulfate (Plavix -) 75 mg PO DAILY [facility] Last Admin: 06/16/18 09:41 Dose: 75 mg Heparin Sodium (Porcine) (Heparin -) 5,000 unit SQ BID [facility] Last Admin: 06/16/18 09:41 Dose: 5,000 unit Sodium Chloride (Normal Saline -) 1,000 mls @ 100 mls/hr IV ASDIR [facility] Last Admin: 06/16/18 15:35 Dose: 100 mls/hr Levothyroxine Sodium (Synthroid -) 50 mcg PO DAILY@0700 [facility] Last Admin: 06/16/18 09:41 Dose: 50 mcg Oxycodone HCl (Roxicodone -) 15 mg PO BID PRN PRN Reason: PAIN LEVEL 6-10 Last Admin: 06/16/18 10:00 Dose: 15 mg Rosuvastatin Calcium (Crestor -) 40 mg PO HS [facility] Last Admin: 06/15/18 23:00 Dose: 40 mg Zolpidem Tartrate (Ambien -) 10 mg PO HS PRN PRN Reason: INSOMNIA - Objective Vital Signs: Vital Signs Temperature 98.2 F 06/16/18 14:45 Pulse Rate 87 06/16/18 14:45 Respiratory Rate 17 06/16/18 14:45 Blood Pressure 107/45 L 06/16/18 14:45 O2 Sat by Pulse Oximetry (%) 97 06/16/18 14:45 Constitutional: Yes: No Distress HENT: Yes: Atraumatic Neck: Yes: Supple Cardiovascular: Yes: Regular Rate and Rhythm Respiratory: Yes: CTA Bilaterally Gastrointestinal: Yes: Normal Bowel Sounds Extremities: Yes: WNL Neurological: Yes: Alert, Oriented Labs: CBC, BMP 06/16/18 06:25 06/16/18 06:25 INR, PTT INR 1.03 (0.83-1.09) 06/15/18 16:00 Problem List - Problems (1) YOGESH (acute kidney injury) Assessment/Plan: renal on on hydration fu on cr Code(s): N17.9 - ACUTE KIDNEY FAILURE, UNSPECIFIED (2) Hypoglycemia Assessment/Plan: resolved Code(s): E16.2 - HYPOGLYCEMIA, UNSPECIFIED (3) Hypotension Assessment/Plan: resolved Code(s): I95.9 - HYPOTENSION, UNSPECIFIED Qualifiers: Hypotension type: unspecified hypotension type Qualified Code(s): I95.9 - Hypotension, unspecified (4) Diabetes Assessment/Plan: on insulin bgms Code(s): E11.9 - TYPE 2 DIABETES MELLITUS WITHOUT COMPLICATIONS (5) Hypothyroidism Assessment/Plan: on meds Code(s): E03.9 - HYPOTHYROIDISM, UNSPECIFIED
--- NOTE | 2018-06-16 16:10 | CON.ID ---
Consult Consult Specialty:: infectious diseases Reason for Consultation:: weakness,sepsis - History of Present Illness Chief Complaint: weakness,could not bear weight History of Present Illness: 58yo female with h/o HTN, DM on insulin pump, hyperlipidemia, asthma, obstructive sleep apnea, morbid obesity, h/o TIA, CKD, hypothyroidism who was sent from the family practice physician office after she became suddenly weak and her knees buckled while standing up from a chair. She was noted to be hypotensive and hypoglycemic. She was in her USOH prior to that episode. Denies any fevers, chills or sweats. No sick contacts. No cough, dysuria or diarrhea. She as given juice PO and dextrose IV and now she feels at her baseline. Last BP stable. No shortness of breath or chest pain. She is a former smoker. currently she is lying in the bed feels ok but feels that she is still weak - History Source History Provided By: Patient Limitations to Obtaining History: No Limitations - Past Medical History Cardio/Vascular: Yes: Hyperlipdemia Pulmonary: Yes: Asthma Endocrine: Yes: Diabetes Mellitus - Alcohol/Substance Use Hx Alcohol Use: No - Smoking History Smoking history: Never smoked Have you smoked in the past 12 months: No Home Medications - Allergies Allergies/Adverse Reactions: Allergies Allergy/AdvReac Type Severity Reaction Status Date / Time No Known Allergies Allergy Verified 06/15/18 15:28 - Home Medications Home Medications: Ambulatory Orders Levothyroxine [Synthroid -] 50 mcg PO DAILY@0700 tablet 04/17/18 Clopidogrel Bisulfate [Plavix -] 75 mg PO DAILY #30 tablet 04/30/18 Cyclobenzaprine HCl [Flexeril 10 mg] 10 mg PO BID PRN 04/30/18 Lisinopril 20 mg PO DAILY 04/30/18 Rosuvastatin Calcium [Crestor] 40 mg PO DAILY 04/30/18 Review of Systems - Review of Systems Constitutional: reports: Weakness Eyes: reports: No Symptoms HENT: reports: No Symptoms Neck: reports: No Symptoms Cardiovascular: reports: No Symptoms Respiratory: reports: No Symptoms Gastrointestinal: reports: No Symptoms Genitourinary: reports: No Symptoms Musculoskeletal: reports: Muscle Weakness Integumentary: reports: No Symptoms Neurological: reports: No Symptoms Endocrine: reports: No Symptoms Hematology/Lymphatic: reports: No Symptoms Psychiatric: reports: No Symptoms Physical Exam Vital Signs: Vital Signs Temperature 98.2 F 06/16/18 14:45 Pulse Rate 87 06/16/18 14:45 Respiratory Rate 17 06/16/18 14:45 Blood Pressure 107/45 L 06/16/18 14:45 O2 Sat by Pulse Oximetry (%) 97 06/16/18 14:45 Constitutional: Yes: Well Nourished, No Distress, Calm Eyes: Yes: Conjunctiva Clear Neck: Yes: Supple, Trachea Midline Cardiovascular: Yes: Regular Rate and Rhythm, S1, S2 Respiratory: Yes: Regular, CTA Bilaterally Gastrointestinal: Yes: Normal Bowel Sounds, Soft Musculoskeletal: Yes: WNL Extremities: Yes: Other Neurological: Yes: Alert, Oriented Psychiatric: Yes: Alert, Oriented Labs: CBC, BMP 06/16/18 06:25 06/16/18 06:25 Imaging - Results Chest X-ray: Report Reviewed, Image Reviewed Cat Scan: Report Reviewed, Image Reviewed Assessment/Plan Problem List - Problems (1) Hypoglycemia Code(s): E16.2 - HYPOGLYCEMIA, UNSPECIFIED (2) Hypotension Code(s): I95.9 - HYPOTENSION, UNSPECIFIED Qualifiers: Hypotension type: unspecified hypotension type Qualified Code(s): I95.9 - Hypotension, unspecified (3) YOGESH (acute kidney injury) Code(s): N17.9 - ACUTE KIDNEY FAILURE, UNSPECIFIED (4) Diabetes Code(s): E11.9 - TYPE 2 DIABETES MELLITUS WITHOUT COMPLICATIONS (5) Hypothyroidism Code(s): E03.9 - HYPOTHYROIDISM, UNSPECIFIED Assessment/Plan Hypoglycemia resolved Hypotension resolved Acute Kidney Injury DM HTN Hyperlipidemia Asthma Hypothyroidism Morbid Obesity will not start on any abx at this time continue to watch await for all the cx rest as per the team
[2018-06-16 16:35] VITALS: BMI 40.1
[2018-06-16] MEDS ORDERED: FLU VACCINE QUAD 60 MCG/0.5 ML (MDV 18-19) IM ONE (18:48)
[2018-06-16] MEDS: ROSUVASTATIN CA 40 MG TABLET PO SCH (21:11)
--- NOTE | 2018-06-17 00:10 | CONSULT ---
Consult Consult Specialty:: endocrine Reason for Consultation:: diabetes mellitus hypoglycemia - History of Present Illness Chief Complaint: low sugar History of Present Illness: 58 year old female, with a significant past medical history of morbid obesity, TIA (right sided deficits), IDDM since 1993 /(insulin pump), Renal insufficiency , HLD, HTN, Asthma, YARI, and Hypothyroidism (2/2 to goiter removal) via EMS, who presents to the emergency department with, low blood pressure and hypoglycemia. Patient notes she felt weak and slid down a wall. As per EMS, the patient was at the podiatrists office today for diabetic wound care found to have hypotension and weakness sent to ed for admission,she had been using insulin pump in past but unable to follow up for upgrade and training since recent tia symptoms,she has frequent labile blood sugars,no chest pain,nausea or vomiting. - History Source History Provided By: Patient - Past Medical History Cardio/Vascular: Yes: Hyperlipdemia Pulmonary: Yes: Asthma ...: No Endocrine: Yes: Diabetes Mellitus - Alcohol/Substance Use Hx Alcohol Use: No - Smoking History Smoking history: Never smoked Have you smoked in the past 12 months: No Home Medications - Allergies Allergies/Adverse Reactions: Allergies Allergy/AdvReac Type Severity Reaction Status Date / Time No Known Allergies Allergy Verified 06/15/18 15:28 - Home Medications Home Medications: Ambulatory Orders Levothyroxine [Synthroid -] 50 mcg PO DAILY@0700 tablet 04/17/18 Clopidogrel Bisulfate [Plavix -] 75 mg PO DAILY #30 tablet 04/30/18 Cyclobenzaprine HCl [Flexeril 10 mg] 10 mg PO BID PRN 04/30/18 Lisinopril 20 mg PO DAILY 04/30/18 Rosuvastatin Calcium [Crestor] 40 mg PO DAILY 04/30/18 Review of Systems - Review of Systems Constitutional: reports: Weakness Eyes: reports: Blurred Vision HENT: reports: No Symptoms Neck: reports: No Symptoms Cardiovascular: reports: Shortness of Breath Respiratory: reports: SOB on Exertion Gastrointestinal: reports: Constipation Genitourinary: reports: No Symptoms Breasts: reports: No Symptoms Reported Musculoskeletal: reports: Extremity Pain, Muscle Cramps, Muscle Weakness Endocrine: reports: Unexplained Weight Gain Physical Exam Vital Signs: Vital Signs Temperature 98 F 06/16/18 21:00 Pulse Rate 88 06/16/18 21:00 Respiratory Rate 18 10/09/18 21:00 Blood Pressure 116/63 06/16/18 21:00 O2 Sat by Pulse Oximetry (%) 99 06/16/18 21:00 Constitutional: Yes: Anxious Eyes: Yes: EOM Intact HENT: Yes: Normocephalic Neck: Yes: Trachea Midline Cardiovascular: Yes: Regular Rate and Rhythm Respiratory: Yes: CTA Bilaterally Gastrointestinal: Yes: Normal Bowel Sounds, Abdomen, Obese ...Rectal Exam: Yes: Deferred Renal/: Yes: WNL Musculoskeletal: Yes: Back Pain, Muscle Weakness Extremities: Yes: WNL Neurological: Yes: Alert, Oriented, Numbness, Tingling, Unsteady Gait, Weakness Labs: CBC, BMP 06/16/18 06:25 06/16/18 06:25 Assessment/Plan Current Active Problems YOGESH (acute kidney injury) (Acute) Hypoglycemia (Acute) Hypotension (Acute) Weakness (Acute) diabetes mellitus uncontrolled diabetic neuropathy ashd hyperlipidemia Abnormal Lab Results 06/16/18 06/16/18 06/16/18 06:25 06:25 15:30 WBC 11.2 H Monocytes % 3.7 L Eosinophils % 7.9 H Anion Gap 7 L BUN 20 H Creatinine 2.2 H Random Glucose 169 H Urine Protein 1+ H Urine Glucose (UA) 3+ H Urine Blood 2+ H U Random Total Protein Ur Random Chloride Ur Random Urea Nitrogn Urine Creatinine 06/16/18 15:30 WBC Monocytes % Eosinophils % Anion Gap BUN Creatinine Random Glucose Urine Protein Urine Glucose (UA) Urine Blood U Random Total Protein 62 H Ur Random Chloride 86 L Ur Random Urea Nitrogn 303 L Urine Creatinine 101.0 H Laboratory Results - last 24 hr 06/16/18 06/16/18 06/16/18 00:41 06:25 06:25 WBC 11.2 H RBC 4.73 Hgb 13.0 Hct 40.6 MCV 85.8 MCH 27.5 MCHC 32.0 RDW 13.4 Plt Count 237 MPV 8.9 Absolute Neuts (auto) 7.1 Neutrophils % 63.2 Lymphocytes % 24.4 Monocytes % 3.7 L Eosinophils % 7.9 H Basophils % 0.8 D Nucleated RBC % 0 Sodium 137 Potassium 4.7 Chloride 104 Carbon Dioxide 26 Anion Gap 7 L BUN 20 H Creatinine 2.2 H Creat Clearance w eGFR 22.93 POC Glucometer [phone] Random Glucose 169 H Calcium 8.7 Total Bilirubin 0.5 AST 18 ALT 16 Alkaline Phosphatase 81 Total Protein 6.5 Albumin 3.4 Urine Color Urine Appearance Urine pH Ur Specific [place] Urine Protein Urine Glucose (UA) Urine Ketones Urine Blood Urine Nitrite Urine Bilirubin Urine Urobilinogen Ur Leukocyte Esterase Urine WBC (Auto) Urine RBC (Auto) U Random Total Protein Ur Random Sodium Ur Random Potassium Ur Random Chloride Ur Random Urea Nitrogn Urine Creatinine 06/16/18 06/16/18 06/16/18 09:38 15:30 15:30 WBC RBC Hgb Hct MCV MCH MCHC RDW Plt Count MPV Absolute Neuts (auto) Neutrophils % Lymphocytes % Monocytes % Eosinophils % Basophils % Nucleated RBC % Sodium Potassium Chloride Carbon Dioxide Anion Gap BUN Creatinine Creat Clearance w eGFR POC Glucometer [phone] Random Glucose Calcium Total Bilirubin AST ALT Alkaline Phosphatase Total Protein Albumin Urine Color Ltyellow Urine Appearance Slcloudy Urine pH 5.0 Ur Specific [place] 1.011 Urine Protein 1+ H Urine Glucose (UA) 3+ H Urine Ketones Negative Urine Blood 2+ H Urine Nitrite Negative Urine Bilirubin Negative Urine Urobilinogen Negative Ur Leukocyte Esterase Trace Urine WBC (Auto) 7 Urine RBC (Auto) 35 U Random Total Protein Ur Random Sodium Cancelled Ur Random Potassium Ur Random Chloride Ur Random Urea Nitrogn Urine Creatinine 06/16/18 06/16/18 06/16/18 15:30 15:30 17:49 WBC RBC Hgb Hct MCV MCH MCHC RDW Plt Count MPV Absolute Neuts (auto) Neutrophils % Lymphocytes % Monocytes % Eosinophils % Basophils % Nucleated RBC % Sodium Potassium Chloride Carbon Dioxide Anion Gap BUN Creatinine Creat Clearance w eGFR POC Glucometer 180 Random Glucose Calcium Total Bilirubin AST ALT Alkaline Phosphatase Total Protein Albumin Urine Color Urine Appearance Urine pH Ur Specific [place] Urine Protein Urine Glucose (UA) Urine Ketones Urine Blood Urine Nitrite Urine Bilirubin Urine Urobilinogen Ur Leukocyte Esterase Urine WBC (Auto) Urine RBC (Auto) U Random Total Protein 62 H Ur Random Sodium 82 Ur Random Potassium 28.0 Ur Random Chloride 86 L Ur Random Urea Nitrogn 303 L Cancelled Urine Creatinine 101.0 H 06/16/18 23:02 WBC RBC Hgb Hct MCV MCH MCHC RDW Plt Count MPV Absolute Neuts (auto) Neutrophils % Lymphocytes % Monocytes % Eosinophils % Basophils % Nucleated RBC % Sodium Potassium Chloride Carbon Dioxide Anion Gap BUN Creatinine Creat Clearance w eGFR POC Glucometer 187 Random Glucose Calcium Total Bilirubin AST ALT Alkaline Phosphatase Total Protein Albumin Urine Color Urine Appearance Urine pH Ur Specific [place] Urine Protein Urine Glucose (UA) Urine Ketones Urine Blood Urine Nitrite Urine Bilirubin Urine Urobilinogen Ur Leukocyte Esterase Urine WBC (Auto) Urine RBC (Auto) U Random Total Protein Ur Random Sodium Ur Random Potassium Ur Random Chloride Ur Random Urea Nitrogn Urine Creatinine plan check hba1c lipid panel diet nutrition consult bgm qid novolog insulin doses levemir 27 unit am levemir 10 units hs ck tsh continue synthroid dose
[2018-06-17] MEDS ORDERED: INSULIN (NOVOLOG) ASPART 100 UNITS/ML 10ML VIAL ONE ×2 (06:03→21:15)
[2018-06-17] MEDS: INSULIN SLIDING SCALE (NOVOLOG) 1 VIAL SQ SCH ×4 (06:19→21:28)
[2018-06-17] MEDS: LEVOTHYROXINE NA 50 MCG TABLET (FP) PO SCH (06:19)
[2018-06-17 06:49] LABS: BASO % 0.8 % (0-2.0); EOS % 7.3 % (0-4.5); HEMATOCRIT 38.9 % (32.4-45.2); HEMOGLOBIN 12.6 GM/dL (10.7-15.3); LYMPH % 30.6 % (8-40); MCH 27.2 pg (25.7-33.7); MCHC 32.3 g/dl (32.0-36.0); MEAN CELL VOLUME 84.3 fl (80-96); MEAN PLT VOLUME 8.7 fl (7.5-11.1); MONO % 4.9 % (3.8-10.2); NEUT % 56.4 % (42.8-82.8); PLATELET COUNT 228 K/MM3 (134-434); RBC 4.61 M/mm3 (3.60-5.2); RDW 13.1 % (11.6-15.6); WHITE BLOOD COUNT 8.2 K/mm3 (4.0-10.0)
[2018-06-17] MEDS ORDERED: INSULIN SLIDING SCALE (NOVOLOG) 1 VIAL SQ SCH (07:00)
[2018-06-17] MEDS ORDERED: INSULIN (LEVEMIR) 100 UNITS/ML UNITS SQ SCH ×4 (07:00→22:00)
[2018-06-17 07:21] LABS: ALBUMIN 3.1 g/dl (3.4-5.0); ALK PHOS 75 U/L (45-117); ANION GAP 4 MMOL/L (8-16); BILIRUBIN,TOTAL 0.5 mg/dL (0.2-1); BLOOD UREA NITROGEN 12 mg/dL (7-18); CALCIUM 8.9 mg/dL (8.5-10.1); CHLORIDE 107 mmol/L (98-107); CO2 25 mmol/L (21-32); GLUCOSE,RANDOM 219 mg/dL (74-106); MAGNESIUM 2.1 mg/dL (1.8-2.4); PHOSPHOROUS 2.9 mg/dL (2.5-4.9); POTASSIUM 4.5 mmol/L (3.5-5.1); SGOT/AST 17 U/L (15-37); SGPT/ALT 16 U/L (13-61); SODIUM 136 mmol/L (136-145)
--- NOTE | 2018-06-17 10:34 | PN ---
Progress Note, Physician History of Present Illness: PULMONARY ALERT,NO DISTRESS ,-SOB,-CP,ALERT . PREVIOUS SLEEP STUDY AHI 6.5 - Current Medication List Current Medications: Active Medications Clopidogrel Bisulfate (Plavix -) 75 mg PO DAILY [facility] Last Admin: 06/16/18 09:41 Dose: 75 mg Heparin Sodium (Porcine) (Heparin -) 5,000 unit SQ BID [facility] Last Admin: 06/16/18 21:10 Dose: 5,000 unit Sodium Chloride (Normal Saline -) 1,000 mls @ 100 mls/hr IV ASDIR [facility] Last Admin: 06/16/18 15:35 Dose: 100 mls/hr Insulin Aspart (Novolog Vial Sliding Scale -) 1 vial SQ ACHS [facility]; Protocol Last Admin: 06/17/18 06:19 Dose: 5 units Insulin Detemir (Levemir Vial) 10 units SQ HS [facility] Insulin Detemir (Levemir Vial) 27 units SQ AM [facility] Last Admin: 06/17/18 06:20 Dose: 27 units Levothyroxine Sodium (Synthroid -) 50 mcg PO DAILY@0700 [facility] Last Admin: 06/17/18 06:19 Dose: 50 mcg Oxycodone HCl (Roxicodone -) 15 mg PO BID PRN PRN Reason: PAIN LEVEL 6-10 Last Admin: 06/16/18 10:00 Dose: 15 mg Rosuvastatin Calcium (Crestor -) 40 mg PO HS [facility] Zolpidem Tartrate (Ambien -) 10 mg PO HS PRN PRN Reason: INSOMNIA - Objective Vital Signs: Vital Signs Temperature 98.1 F 06/17/18 06:00 Pulse Rate 96 H 06/17/18 06:00 Respiratory Rate 18 06/17/18 06:00 Blood Pressure 135/76 06/17/18 06:00 O2 Sat by Pulse Oximetry (%) 99 06/16/18 21:00 Constitutional: Yes: Calm, Obese Eyes: Yes: WNL HENT: Yes: WNL Neck: Yes: WNL Cardiovascular: Yes: Regular Rate and Rhythm, S1, S2 Respiratory: Yes: CTA Bilaterally Gastrointestinal: Yes: Normal Bowel Sounds, Soft Extremities: Yes: WNL Edema: No Labs: CBC, BMP 06/17/18 05:30 06/17/18 05:30 INR, PTT INR 1.03 (0.83-1.09) 06/15/18 16:00 Problem List - Problems (1) Morbid obesity due to excess calories Code(s): E66.01 - MORBID (SEVERE) OBESITY DUE TO EXCESS CALORIES (2) Obstructive sleep apnea Code(s): G47.33 - OBSTRUCTIVE SLEEP APNEA (ADULT) (PEDIATRIC) Assessment/Plan Problem List - Problems (1) Hypoglycemia Code(s): E16.2 - HYPOGLYCEMIA, UNSPECIFIED (2) Hypotension Code(s): I95.9 - HYPOTENSION, UNSPECIFIED Qualifiers: Hypotension type: unspecified hypotension type Qualified Code(s): I95.9 - Hypotension, unspecified (3) YOGESH (acute kidney injury) Code(s): N17.9 - ACUTE KIDNEY FAILURE, UNSPECIFIED (4) Diabetes Code(s): E11.9 - TYPE 2 DIABETES MELLITUS WITHOUT COMPLICATIONS (5) Hypothyroidism Code(s): E03.9 - HYPOTHYROIDISM, UNSPECIFIED Assessment/Plan Hypoglycemia resolved Hypotension resolved Acute Kidney Injury DM HTN Hyperlipidemia Asthma Hypothyroidism Morbid Obesity MILD YARI AHI 6.5 - monitor glucose - IVF - monitor urine output, creatinine - inhaled bronchodilators as needed - DVT prophylaxis - WT REDUCTION - CPAP titration outpatient DR INIGUEZ
[2018-06-17] MEDS: oxyCODONE HCL 5 MG TABLET PO PRN ×2 (11:10→23:38)
[2018-06-17] MEDS: HEPARIN NA (PORCINE) 5,000 UNITS/ML 1ML VIAL SQ SCH ×2 (11:11→21:27)
[2018-06-17] MEDS: CLOPIDOGREL BISULFATE 75 MG TABLET (FP) PO SCH (11:11)
--- NOTE | 2018-06-17 14:33 | PN ---
Progress Note, Physician History of Present Illness: doing well no issues sitting in chair - Current Medication List Current Medications: Active Medications Clopidogrel Bisulfate (Plavix -) 75 mg PO DAILY COUNT INCLUDES [facility] Last Admin: 06/17/18 11:11 Dose: 75 mg Heparin Sodium (Porcine) (Heparin -) 5,000 unit SQ BID COUNT INCLUDES THE [facility] Last Admin: 06/17/18 11:11 Dose: 5,000 unit Sodium Chloride (Normal Saline -) 1,000 mls @ 100 mls/hr IV ASDIR COUNT INCLUDES THE [facility] Last Admin: 06/16/18 15:35 Dose: 100 mls/hr Insulin Aspart (Novolog Vial Sliding Scale -) 1 vial SQ ACHS COUNT INCLUDES THE [facility]; Protocol Last Admin: 06/17/18 06:19 Dose: 5 units Insulin Detemir (Levemir Vial) 10 units SQ HS JO Insulin Detemir (Levemir Vial) 27 units SQ AM COUNT INCLUDES THE [facility] Last Admin: 06/17/18 06:20 Dose: 27 units Levothyroxine Sodium (Synthroid -) 50 mcg PO DAILY@0700 COUNT INCLUDES THE [facility] Last Admin: 06/17/18 06:19 Dose: 50 mcg Oxycodone HCl (Roxicodone -) 15 mg PO BID PRN PRN Reason: PAIN LEVEL 6-10 Last Admin: 06/17/18 11:10 Dose: 15 mg Rosuvastatin Calcium (Crestor -) 40 mg PO HS JO Zolpidem Tartrate (Ambien -) 10 mg PO HS PRN PRN Reason: INSOMNIA - Objective Vital Signs: Vital Signs Temperature 98.6 F 06/17/18 10:00 Pulse Rate 88 06/17/18 10:00 Respiratory Rate 18 06/17/18 10:00 Blood Pressure 128/78 06/17/18 10:00 O2 Sat by Pulse Oximetry (%) 99 06/17/18 10:00 Constitutional: Yes: No Distress, Calm, Obese Cardiovascular: Yes: Regular Rate and Rhythm Respiratory: Yes: Regular, CTA Bilaterally Gastrointestinal: Yes: Normal Bowel Sounds, Soft Musculoskeletal: Yes: WNL Extremities: Yes: WNL Neurological: Yes: Alert, Oriented Psychiatric: Yes: Alert, Oriented Labs: CBC, BMP 06/17/18 05:30 06/17/18 05:30 INR, PTT INR 1.03 (0.83-1.09) 06/15/18 16:00 Assessment/Plan Problem List - Problems (1) Hypoglycemia Code(s): E16.2 - HYPOGLYCEMIA, UNSPECIFIED (2) Hypotension Code(s): I95.9 - HYPOTENSION, UNSPECIFIED Qualifiers: Hypotension type: unspecified hypotension type Qualified Code(s): I95.9 - Hypotension, unspecified (3) YOGESH (acute kidney injury) Code(s): N17.9 - ACUTE KIDNEY FAILURE, UNSPECIFIED (4) Diabetes Code(s): E11.9 - TYPE 2 DIABETES MELLITUS WITHOUT COMPLICATIONS (5) Hypothyroidism Code(s): E03.9 - HYPOTHYROIDISM, UNSPECIFIED Assessment/Plan Hypoglycemia resolved Hypotension resolved Acute Kidney Injury DM HTN Hyperlipidemia Asthma Hypothyroidism Morbid Obesity continue monitoring all cx report noted ret as per the team patient stable
[2018-06-17] MEDS: SODIUM CHLORIDE 1,000 ML IV SCH (16:33)
--- NOTE | 2018-06-17 17:19 | DS ---
Physical Examination Vital Signs: Vital Signs Temperature 97.9 F 06/17/18 14:00 Pulse Rate 83 06/17/18 14:00 Respiratory Rate 18 06/17/18 10:00 Blood Pressure 138/63 06/17/18 14:00 O2 Sat by Pulse Oximetry (%) 99 06/17/18 10:00 Labs: CBC, BMP 06/17/18 05:30 06/17/18 05:30 Discharge Summary Reason For Visit: ACUTE KIDNEY INJURY; HYPOGLYCEMIA; WEAKNESS Current Active Problems YOGESH (acute kidney injury) (Acute) Hypoglycemia (Acute) Hypotension (Acute) Morbid obesity due to excess calories (Acute) Obstructive sleep apnea (Acute) Weakness (Acute) Condition: Stable - Instructions - Home Medications Comprehensive Discharge Medication List: Ambulatory Orders Levothyroxine [Synthroid -] 50 mcg PO DAILY@0700 tablet 04/17/18 Clopidogrel Bisulfate [Plavix -] 75 mg PO DAILY #30 tablet 04/30/18 Rosuvastatin Calcium [Crestor] 40 mg PO DAILY 04/30/18 [place] home
--- NOTE | 2018-06-17 20:18 | PN ---
Progress Note, Physician History of Present Illness: doing well - Current Medication List Current Medications: Active Medications Clopidogrel Bisulfate (Plavix -) 75 mg PO DAILY [facility] Last Admin: 06/17/18 11:11 Dose: 75 mg Heparin Sodium (Porcine) (Heparin -) 5,000 unit SQ BID [facility] Last Admin: 06/17/18 11:11 Dose: 5,000 unit Sodium Chloride (Normal Saline -) 1,000 mls @ 100 mls/hr IV ASDIR [facility] Last Admin: 06/17/18 16:33 Dose: 100 mls/hr Insulin Aspart (Novolog Vial Sliding Scale -) 1 vial SQ ACHS [facility]; Protocol Last Admin: 06/17/18 18:12 Dose: 7 units Insulin Detemir (Levemir Vial) 10 units SQ HS JO Insulin Detemir (Levemir Vial) 27 units SQ AM [facility] Last Admin: 06/17/18 06:20 Dose: 27 units Levothyroxine Sodium (Synthroid -) 50 mcg PO DAILY@0700 [facility] Last Admin: 06/17/18 06:19 Dose: 50 mcg Oxycodone HCl (Roxicodone -) 15 mg PO BID PRN PRN Reason: PAIN LEVEL 6-10 Last Admin: 06/17/18 11:10 Dose: 15 mg Rosuvastatin Calcium (Crestor -) 40 mg PO HS JO Zolpidem Tartrate (Ambien -) 10 mg PO HS PRN PRN Reason: INSOMNIA - Objective Vital Signs: Vital Signs Temperature 98.6 F 06/17/18 17:00 Pulse Rate 80 06/17/18 17:00 Respiratory Rate 20 06/17/18 17:00 Blood Pressure 143/74 06/17/18 17:00 O2 Sat by Pulse Oximetry (%) 99 06/17/18 10:00 Constitutional: Yes: No Distress HENT: Yes: Atraumatic Neck: Yes: Supple Cardiovascular: Yes: Regular Rate and Rhythm Respiratory: Yes: CTA Bilaterally Gastrointestinal: Yes: Normal Bowel Sounds Edema: No Peripheral Pulses WNL: Yes Neurological: Yes: Alert, Oriented Labs: CBC, BMP 06/17/18 05:30 06/17/18 05:30 INR, PTT INR 1.03 (0.83-1.09) 06/15/18 16:00 Problem List - Problems (1) YOGESH (acute kidney injury) Assessment/Plan: cr wnl Code(s): N17.9 - ACUTE KIDNEY FAILURE, UNSPECIFIED (2) Hypoglycemia Assessment/Plan: resolved Code(s): E16.2 - HYPOGLYCEMIA, UNSPECIFIED (3) Hypotension Assessment/Plan: resolved Code(s): I95.9 - HYPOTENSION, UNSPECIFIED Qualifiers: Hypotension type: unspecified hypotension type Qualified Code(s): I95.9 - Hypotension, unspecified (4) Diabetes Assessment/Plan: on insulin bgms Code(s): E11.9 - TYPE 2 DIABETES MELLITUS WITHOUT COMPLICATIONS (5) Hypothyroidism Assessment/Plan: on meds Code(s): E03.9 - HYPOTHYROIDISM, UNSPECIFIED
[2018-06-17] MEDS ORDERED: ROSUVASTATIN CA 20 MG TABLET (FP) PO SCH (22:00)
--- NOTE | 2018-06-17 23:24 | PN ---
Progress Note (short form) - Note Progress Note: diabetes mellitus sp hypoglycemia likely doses adjustment will need cgms as outpatient Abnormal Lab Results 06/17/18 06/17/18 05:30 05:30 Eosinophils % 7.3 H Anion Gap 4 L Random Glucose 219 H Total Protein 6.0 L Albumin 3.1 L Current Active Problems YOGESH (acute kidney injury) (Acute) Hypoglycemia (Acute) Hypotension (Acute) Morbid obesity due to excess calories (Acute) Obstructive sleep apnea (Acute) Weakness (Acute) Laboratory Results - last 24 hr 06/17/18 06/17/18 06/17/18 05:30 05:30 05:48 WBC 8.2 RBC 4.61 Hgb 12.6 Hct 38.9 MCV 84.3 MCH 27.2 MCHC 32.3 RDW 13.1 Plt Count 228 MPV 8.7 Absolute Neuts (auto) 4.6 Neutrophils % 56.4 Lymphocytes % 30.6 D Monocytes % 4.9 Eosinophils % 7.3 H Basophils % 0.8 Nucleated RBC % 0 Sodium 136 Potassium 4.5 Chloride 107 Carbon Dioxide 25 Anion Gap 4 L BUN 12 Creatinine 1.0 Creat Clearance w eGFR 56.95 POC Glucometer 178 Random Glucose 219 H Calcium 8.9 Phosphorus 2.9 Magnesium 2.1 Total Bilirubin 0.5 AST 17 ALT 16 Alkaline Phosphatase 75 Total Protein 6.0 L Albumin 3.1 L 06/17/18 21:07 WBC RBC Hgb Hct MCV MCH MCHC RDW Plt Count MPV Absolute Neuts (auto) Neutrophils % Lymphocytes % Monocytes % Eosinophils % Basophils % Nucleated RBC % Sodium Potassium Chloride Carbon Dioxide Anion Gap BUN Creatinine Creat Clearance w eGFR POC Glucometer 268 Random Glucose Calcium Phosphorus Magnesium Total Bilirubin AST ALT Alkaline Phosphatase Total Protein Albumin plan: levemir 30 iu am daily bgm achs novolog isnulin levemir 10 iu hs follow up as outpatient
[2018-06-18] MEDS: LEVOTHYROXINE NA 50 MCG TABLET (FP) PO SCH (06:17)
[2018-06-18] MEDS: INSULIN SLIDING SCALE (NOVOLOG) 1 VIAL SQ SCH (06:17)
[2018-06-18 06:22] VITALS: BP 124/61; PULSE 81; TEMP 98.5
[2018-06-18 06:49] LABS: EOS % 7.4 % (0-4.5); HEMATOCRIT 38.3 % (32.4-45.2); HEMOGLOBIN 12.5 GM/dL (10.7-15.3); LYMPH % 36.9 % (8-40); MCH 27.6 pg (25.7-33.7); MCHC 32.7 g/dl (32.0-36.0); MEAN CELL VOLUME 84.4 fl (80-96); MEAN PLT VOLUME 8.9 fl (7.5-11.1); MONO % 6.2 % (3.8-10.2); NEUT % 48.5 % (42.8-82.8); PLATELET COUNT 231 K/MM3 (134-434); RBC 4.54 M/mm3 (3.60-5.2); WHITE BLOOD COUNT 8.4 K/mm3 (4.0-10.0)
[2018-06-18] MEDS ORDERED: INSULIN (LEVEMIR) 100 UNITS/ML UNITS SQ SCH (07:00)
[2018-06-18 07:04] LABS: ALBUMIN 3.1 g/dl (3.4-5.0); ALK PHOS 74 U/L (45-117); ANION GAP 10 MMOL/L (8-16); BILIRUBIN,TOTAL 0.5 mg/dL (0.2-1); BLOOD UREA NITROGEN 10 mg/dL (7-18); CALCIUM 9.5 mg/dL (8.5-10.1); CHLORIDE 107 mmol/L (98-107); CO2 24 mmol/L (21-32); CREATININE 0.8 mg/dL (0.55-1.3); GLUCOSE,RANDOM 198 mg/dL (74-106); SGOT/AST 16 U/L (15-37); SGPT/ALT 16 U/L (13-61); SODIUM 141 mmol/L (136-145); TOT PROT 6.2 g/dl (6.4-8.2)
[2018-06-18] MEDS: HEPARIN NA (PORCINE) 5,000 UNITS/ML 1ML VIAL SQ SCH (09:56)
[2018-06-18] MEDS: CLOPIDOGREL BISULFATE 75 MG TABLET (FP) PO SCH (09:57)
--- NOTE | 2018-06-18 18:59 | DS ---
Physical Examination Vital Signs: Vital Signs Temperature 98.5 F 06/18/18 06:00 Pulse Rate 81 06/18/18 06:00 Respiratory Rate 18 06/18/18 06:00 Blood Pressure 124/61 06/18/18 06:00 O2 Sat by Pulse Oximetry (%) 98 06/18/18 09:00 Constitutional: Yes: No Distress HENT: Yes: Atraumatic Neck: Yes: Supple Cardiovascular: Yes: Regular Rate and Rhythm Respiratory: Yes: CTA Bilaterally Gastrointestinal: Yes: Normal Bowel Sounds Edema: No Peripheral Pulses WNL: Yes Neurological: Yes: Alert, Oriented Labs: CBC, BMP 06/18/18 05:30 06/18/18 05:30 Discharge Summary Reason For Visit: ACUTE KIDNEY INJURY; HYPOGLYCEMIA; WEAKNESS Condition: Stable - Instructions Diet, Activity, Other Instructions: bgm qid novolog insulin doses levemir 27 unit am levemir 10 units hs continue synthroid dose SEE DR MOSER FOR INSULIN DOSE Referrals: Pnieda Moser MD [Staff Physician] - Disposition: HOME - Home Medications Comprehensive Discharge Medication List: Ambulatory Orders Levothyroxine [Synthroid -] 50 mcg PO DAILY@0700 tablet 04/17/18 Rosuvastatin Calcium [Crestor] 40 mg PO DAILY 04/30/18 Clopidogrel Bisulfate [Plavix -] 75 mg PO DAILY #30 tablet 06/17/18 [facility]
== END 2018-06-18 10:33 | disposition home or self-care (01) | DRG 683 ==
LOC: JER 14:42 → JERBED 15:44 → J4W 06-16 15:37
PROVIDERS: ADMIT Internal Medicine; ATTEND Internal Medicine
DX: N17.9 Acute kidney failure, unspecified (principal); Z68.41 Body mass index [BMI] 40.0-44.9, adult; E78.5 Hyperlipidemia, unspecified; G47.33 Obstructive sleep apnea (adult) (pediatric); E66.01 Morbid (severe) obesity due to excess calories; J45.909 Unspecified asthma, uncomplicated; E03.9 Hypothyroidism, unspecified; I95.9 Hypotension, unspecified; I12.9 Hypertensive chronic kidney disease with stage 1 through stage 4 chronic kidney disease, or unspecified chronic kidney disease; E11.22 Type 2 diabetes mellitus with diabetic chronic kidney disease; N18.9 Chronic kidney disease, unspecified; D72.829 Elevated white blood cell count, unspecified; E11.649 Type 2 diabetes mellitus with hypoglycemia without coma; E11.65 Type 2 diabetes mellitus with hyperglycemia; E11.40 Type 2 diabetes mellitus with diabetic neuropathy, unspecified; Z86.73 Personal history of transient ischemic attack (TIA), and cerebral infarction without residual deficits
CPT/HCPCS: 36415; 36600; 70450-TC; 71045-TC-FY; 80053; 81003; 81015; 82436; 82550; 82570; 82803; 82962; 83036; 83605; 83690; 83735; 83880; 84100; 84133; 84156; 84300; 84443; 84484; 84540; 85025; 85610; 85730; 87040; 87086; 90688; 93005; 93010; 99285-25; G0008; J0131; J1644; J7030

== ENCOUNTER 2018-08-07 06:19 | Inpatient (IN) | payer OTHER ==
[2018-08-07 06:49] LABS: HEMATOCRIT 44.2 % (32.4-45.2); HEMOGLOBIN 14.1 GM/dL (10.7-15.3); MCH 27.3 pg (25.7-33.7); MCHC 31.8 g/dl (32.0-36.0); MEAN CELL VOLUME 85.8 fl (80-96); MEAN PLT VOLUME 8.1 fl (7.5-11.1); PLATELET COUNT 295 K/MM3 (134-434); RBC 5.15 M/mm3 (3.60-5.2); RDW 14.7 % (11.6-15.6); WHITE BLOOD COUNT 10.7 K/mm3 (4.0-10.0)
[2018-08-07 06:53] LABS: URINE APPEARANCE CLOUDY; URINE BILIRUBIN NEGATIVE (<2.0 mg/dL); URINE COLOR YELLOW; URINE GLUCOSE (UA) 3+ (NEGATIVE); URINE KETONE 1+ (NEGATIVE); URINE LEUK ESTERASE 3+ (NEGATIVE); URINE NITRITE NEGATIVE (NEGATIVE); URINE PROTEIN 1+ (NEGATIVE)
[2018-08-07 07:04] LABS: INR 1.04 (0.83-1.09); PROTHROMBIN TIME (PATIENT) 12.3 SEC (9.7-13.0)
[2018-08-07 07:06] LABS: ACTIVATED PTT 31.1 SECONDS (25.2-36.5)
[2018-08-07 07:10] LABS: EPI CELLS MANY /HPF (FEW); URINE BACTERIA RARE /hpf (NONE SEEN); URINE HYALINE CAST 9 /lpf; URINE MUCUS FEW
[2018-08-07 07:30] LABS: ALBUMIN 3.9 g/dl (3.4-5.0); ALK PHOS 95 U/L (45-117); ANION GAP 11 MMOL/L (8-16); BILIRUBIN,TOTAL 0.6 mg/dL (0.2-1); BLOOD UREA NITROGEN 9 mg/dL (7-18); CALCIUM 9.3 mg/dL (8.5-10.1); CHLORIDE 103 mmol/L (98-107); CO2 26 mmol/L (21-32); CREATININE 0.7 mg/dL (0.55-1.3); GLUCOSE,RANDOM 253 mg/dL (74-106); POTASSIUM 3.9 mmol/L (3.5-5.1); SGOT/AST 14 U/L (15-37); SGPT/ALT 17 U/L (13-61); SODIUM 140 mmol/L (136-145); TOT PROT 7.6 g/dl (6.4-8.2)
[2018-08-07] MEDS ORDERED: LIDOCAINE 1%/EPI 1:100000 (20 ML MULTI DOSE VIAL) ONE (07:41)
[2018-08-07] MEDS ORDERED: BUPIVACAINE HCL/PF 0.25% (2.5MG/ML) 10 ML VIAL ONE (07:42)
[2018-08-07] MEDS ORDERED: THROMBIN (BOVINE) 20,000 UNIT VIAL TP ONE ×2 (07:42→10:30)
--- NOTE | 2018-08-07 07:57 | HP ---
History & Physical Update - History History: No Change - Physical Physical: No Change - Assessment Assessment: No Change - Plan Plan: No Change (Full H&P in chart from 08/06/[address] Blevins)
[2018-08-07] MEDS ORDERED: MIDAZOLAM HCL 2 MG/2 ML SINGLE DOSE VIAL ONE ×2 (08:13→15:50)
[2018-08-07] MEDS ORDERED: PROPOFOL 20 ML ONE ×5 (08:13→13:08)
[2018-08-07] MEDS ORDERED: ROCURONIUM BROMIDE 50 MG/5 ML VIAL ONE ×3 (08:13→12:09)
[2018-08-07] MEDS ORDERED: LIDOCAINE HCL/PF 2% SDV 5ML VIAL ONE (08:14)
[2018-08-07] MEDS ORDERED: GENTAMICIN SO4 80 MG/2 ML VIAL ONE ×2 (08:16→10:29)
[2018-08-07] MEDS ORDERED: ONDANSETRON 4 MG/2 ML VIAL IVPUSH PRN ×2 (08:19→15:54)
[2018-08-07] MEDS ORDERED: DEXAMETHASONE SOD PHOSPHATE 4 MG/1 ML VIAL IVPUSH ONE (08:19)
[2018-08-07] MEDS ORDERED: PROMETHAZINE HCL 25 MG/1 ML VIAL IVPB PRN (08:19)
[2018-08-07] MEDS ORDERED: LACTATED RINGERS SOLUTION 1,000 ML IV SCH (08:30)
[2018-08-07] MEDS ORDERED: DESFLURANE GAS 240 ML BOTTLE IH ONE (08:49)
[2018-08-07] MEDS ORDERED: LIDOCAINE 1%/EPI 1:100000 (50 ML MULTI DOSE VIAL) NR ONE ×2 (08:49)
[2018-08-07] MEDS ORDERED: SODIUM CHLORIDE 0.9% P/F 10 ML VIAL IJ ONE ×2 (09:06→12:15)
[2018-08-07] MEDS ORDERED: ceFAZolin SODIUM 1 GM VIAL ONE ×3 (09:06→17:40)
[2018-08-07] MEDS ORDERED: ceFAZolin 2 GRAM PREMIX BAG IVPB ONE (09:10)
[2018-08-07] MEDS ORDERED: VANCOMYCIN 1,000 MG VIAL (RESTRICTED TO ID ONLY) IVPB ONE (09:15)
[2018-08-07] MEDS ORDERED: HYDROGEN PEROXIDE 473 ML PO ONE ×2 (09:54)
[2018-08-07] MEDS ORDERED: THROMBIN (BOVINE) 5,000 UNIT VIAL TP ONE ×2 (09:54)
[2018-08-07] MEDS ORDERED: GENTAMICIN SO4 80 MG/2 ML VIAL IVPB ONE ×2 (09:54)
[2018-08-07] MEDS ORDERED: GELATIN, ABSORBABLE 12-7MM EACH SPONGE TP ONE ×3 (09:54)
[2018-08-07] MEDS ORDERED: BACITRACIN 50,000 UNITS VIAL TP ONE ×2 (09:54)
[2018-08-07] MEDS ORDERED: METOPROLOL TARTRATE 5 MG/5 ML VIAL ONE ×2 (10:34→14:49)
[2018-08-07] MEDS ORDERED: BACITRACIN 15 GM TUBE TOPICAL OINTMENT ONE (11:56)
[2018-08-07] MEDS ORDERED: VERAPAMIL HCL 5 MG/2 ML VIAL IVPUSH ONE (15:01)
[2018-08-07] MEDS ORDERED: hydrALAZINE HCL 20 MG/ML VIAL ONE (15:08)
[2018-08-07] MEDS ORDERED: NEOSTIGMINE METHYLSULFATE 0.5 MG/1 ML - 10 ML MDV ONE (15:15)
[2018-08-07] MEDS ORDERED: GLYCOPYRROLATE 0.2 MG/1 ML VIAL ONE (15:15)
[2018-08-07] MEDS ORDERED: ONDANSETRON 4 MG/2 ML VIAL ONE (15:18)
[2018-08-07] MEDS ORDERED: DEXAMETHASONE SOD PHOSPHATE 4 MG/1 ML VIAL ONE (15:18)
[2018-08-07] MEDS ORDERED: MORPHINE SULFATE 8 MG/ML VIAL IVPUSH PRN (15:54)
[2018-08-07] MEDS ORDERED: diphenhydrAMINE HCL 25 MG CAPSULE (FP) PO PRN (15:54)
[2018-08-07] MEDS ORDERED: HYDROmorphone *PCA* 10MG/50ML DISP.SYRIN PCA ONE (16:06)
[2018-08-07] MEDS: HYDROmorphone *PCA* 10MG/50ML DISP.SYRIN PCA SCH (16:20)
--- NOTE | 2018-08-07 16:36 | OP ---
Operative Note - Note: Operative Date: 08/07/18 Pre-Operative Diagnosis: Cervical spondylosis and kyphosis Operation: Exploration of spinal fusion with C3 caudal hemicorpectomy, C4 and C7 corpectomies, T1 rostral hemicorpectomy, C7 and T1 osteotomies with yazdanism lordosis, reconstruction Peek cages and anterior plating. Exploration of spinal fusion with C2-T1 laminectomies and C7 & T1 osteotomies with yazdanism of lordosis and C2-T1 posterior instrumention fusion Post-Operative Diagnosis: Same as Pre-op Surgeon: Gadiel Emmanuel Professor Of Practice: Musa Duran Anesthesiologist/SPORTS TEAM MANAGER: Mumtaz Barraza Anesthesia: General Estimated Blood Loss (mls): 750 Operative Report Dictated: Yes
--- NOTE | 2018-08-07 16:38 | SURG ---
Surgery Electrical Design Engineer Note Electrical Design Engineer: Musa Duran PA-C Date of Service: 08/07/18 Diagnosis: Cervical spondylosis and kyphosis Procedure: Exploration of spinal fusion with C3 caudal hemicorpectomy, C4 and C7 corpectomies, T1 rostral hemicorpectomy, C7 and T1 osteotomies with church lordosis, reconstruction Peek cages and anterior plating. Exploration of spinal fusion with C2-T1 laminectomies and C7 & T1 osteotomies with church of lordosis and C2-T1 posterior instrumention fusion I was present for the entirety of the operative procedure. For further detail, please refer to operative report.
[2018-08-07] MEDS ORDERED: LACTATED RINGERS SOLUTION 1,000 ML/1,000 ML INFUS.BAG IV SCH (17:30)
[2018-08-07] MEDS ORDERED: CEFAZOLIN 1 GM in DEXTROSE 5%-WATER - 50 ML IVPB SCH (18:00)
[2018-08-07] MEDS ORDERED: PT OWN MED DRAWER 7, Y5N ONE (21:24)
[2018-08-07] MEDS: PATIENT'S OWN MEDICATION (NON-FORMULARY) (Icosapent Ethyl [Vascepa] 1 GM) PO SCH (21:51)
[2018-08-07] MEDS ORDERED: PATIENT'S OWN MEDICATION (NON-FORMULARY) (Insulin Degludec [Tresiba Flextouch U-100] 60 UN SQ SCH (22:00)
[2018-08-07] MEDS: DOCUSATE SODIUM 100 MG CAPSULE (FP) PO SCH (22:06)
[2018-08-07] MEDS: PREGABALIN 100 MG CAPSULE PO SCH (22:06)
[2018-08-07] MEDS: HEPARIN NA (PORCINE) 5,000 UNITS/ML 1ML VIAL SQ SCH (22:06)
[2018-08-07] MEDS: RANOLAZINE E.R. 500 MG TABLET (FP) PO SCH (22:06)
--- NOTE | 2018-08-07 23:02 | CONSULT ---
Consultation: REQUESTING PROVIDER: CONSULT REQUEST: We have been asked to medically evaluate this patient for ICU monitoring for postop care. HISTORY OF PRESENT ILLNESS: 58 year old female, with a significant past medical history of morbid obesity, TIA (right sided deficits), IDDM (insulin pump), Renal insufficiency, HLD, HTN, Asthma, YARI, and Hypothyroidism (2/2 to goiter removal) presents to ICU for post op care. POD 0 Exploration of spinal fusion with C3 caudal hemicorpectomy, C4 and C7 corpectomies, T1 rostral hemicorpectomy, C7 and T1 osteotomies with latter day lordosis, reconstruction Peek cages and anterior plating. Exploration of spinal fusion with C2-T1 laminectomies and C7 & T1 osteotomies with latter day of lordosis and C2-T1 posterior instrumention fusion. EBL 750cc. pt has no complaints. pt notes DM ulcer on L big toe. f/u w/ electronic court recorder outpt pt denies CRUZ, cp, sob, abd pain, n/v/d REVIEW OF SYSTEMS: as per HPI PHYSICAL EXAMINATION Vital Signs - 24 hr 08/07/18 08/07/18 08/07/18 08:51 15:55 16:10 Temperature 99.5 F 99.5 F Pulse Rate 124 H 124 H Respiratory 22 H 22 H Rate Blood Pressure 131/60 127/58 L O2 Sat by Pulse 100 100 100 Oximetry (%) 08/07/18 08/07/18 08/07/18 16:20 16:25 16:40 Temperature 99.5 F 99.5 F Pulse Rate 121 H 121 H 120 H Respiratory 25 H 25 H 22 H Rate Blood Pressure 133/66 133/66 147/66 O2 Sat by Pulse 100 100 Oximetry (%) 08/07/18 08/07/18 08/07/18 16:50 16:55 17:10 Temperature 98.5 F 98.5 F Pulse Rate 118 H 118 H 118 H Respiratory 17 25 H 16 Rate Blood Pressure 142/69 142/69 142/66 O2 Sat by Pulse 100 100 Oximetry (%) 08/07/18 08/07/18 08/07/18 17:20 17:25 17:40 Temperature 98.5 F 98.5 F Pulse Rate 118 H 118 H 118 H Respiratory 15 15 15 Rate Blood Pressure 145/74 145/74 145/74 O2 Sat by Pulse 100 100 Oximetry (%) 08/07/18 18:00 Temperature 98.5 F Pulse Rate 117 H Respiratory 16 Rate Blood Pressure 154/64 O2 Sat by Pulse Oximetry (%) GENERAL: AOX3 NAD HEENT: NCA, PERRL, extraocular movements intact, sclera anicteric, conjunctiva clear. No lid lag. MMM NECK: cervical collar LUNGS: CTAB HEART: RRR, normal S1 and S2 without m/r/g ABDOMEN: Soft, NTND,+BS, no guarding, no rebound, no masses. MUSCULOSKELETAL: Normal range of motion at all joints. No bony deformities or tenderness. UPPER EXTREMITIES: 2+ pulses, warm, well-perfused. No cyanosis. No clubbing. Cap refill <2 seconds. No peripheral edema. LOWER EXTREMITIES: 2+ pulses, warm, well-perfused. No calf tenderness. No peripheral edema. stage 1 DM ulcer on L big toe NEUROLOGICAL: Cranial nerves II-XII intact. Normal speech. sensation grossly intact LUE >RUE (chronic), strength 5/5 LUE, 4/5 RUE (chronic) PSYCHIATRIC: Cooperative. Good eye contact. Appropriate mood and affect. SKIN: Warm, dry, normal turgor, no rashes or lesions noted. stage 1 DM ulcer on L big toe Laboratory Results - last 24 hr 08/07/18 08/07/18 08/07/18 06:41 06:41 06:41 WBC 10.7 H RBC 5.15 Hgb 14.1 Hct 44.2 D MCV 85.8 MCH 27.3 MCHC 31.8 L RDW 14.7 D Plt Count 295 D MPV 8.1 PT with INR 12.30 INR 1.04 PTT (Actin FS) 31.1 Sodium Potassium Chloride Carbon Dioxide Anion Gap BUN Creatinine Creat Clearance w eGFR POC Glucometer Random Glucose Calcium Total Bilirubin AST ALT Alkaline Phosphatase Total Protein Albumin Urine Color Yellow Urine Appearance Cloudy Urine pH 5.0 Ur Specific [place] 1.022 Urine Protein 1+ H Urine Glucose (UA) 3+ H Urine Ketones 1+ H Urine Blood 1+ H Urine Nitrite Negative Urine Bilirubin Negative Urine Urobilinogen 2.0 H Ur Leukocyte Esterase 3+ H Urine WBC (Auto) 343 Urine RBC (Auto) 33 Ur Epithelial Cells Many Urine Bacteria Rare Hyaline Casts 9 Urine Mucus Few Blood Type Antibody Screen 08/07/18 08/07/18 08/07/18 06:41 06:41 07:19 WBC RBC Hgb Hct MCV MCH MCHC RDW Plt Count MPV PT with INR INR PTT (Actin FS) Sodium 140 Potassium 3.9 Chloride 103 Carbon Dioxide 26 Anion Gap 11 BUN 9 Creatinine 0.7 Creat Clearance w eGFR > 60 POC Glucometer 272 Random Glucose 253 H Calcium 9.3 Total Bilirubin 0.6 AST 14 L ALT 17 Alkaline Phosphatase 95 Total Protein 7.6 Albumin 3.9 Urine Color Urine Appearance Urine pH Ur Specific [place] Urine Protein Urine Glucose (UA) Urine Ketones Urine Blood Urine Nitrite Urine Bilirubin Urine Urobilinogen Ur Leukocyte Esterase Urine WBC (Auto) Urine RBC (Auto) Ur Epithelial Cells Urine Bacteria Hyaline Casts Urine Mucus Blood Type O POSITIVE Antibody Screen Negative 08/07/18 16:52 WBC RBC Hgb Hct MCV MCH MCHC RDW Plt Count MPV PT with INR INR PTT (Actin FS) Sodium Potassium Chloride Carbon Dioxide Anion Gap BUN Creatinine Creat Clearance w eGFR POC Glucometer 349 Random Glucose Calcium Total Bilirubin AST ALT Alkaline Phosphatase Total Protein Albumin Urine Color Urine Appearance Urine pH Ur Specific [place] Urine Protein Urine Glucose (UA) Urine Ketones Urine Blood Urine Nitrite Urine Bilirubin Urine Urobilinogen Ur Leukocyte Esterase Urine WBC (Auto) Urine RBC (Auto) Ur Epithelial Cells Urine Bacteria Hyaline Casts Urine Mucus Blood Type Antibody Screen Active Medications Generic Name Dose Route Start Last Admin Trade Name Lucq PRN Reason Stop Dose Admin Diphenhydramine HCl 12.5 mg 08/07/18 08:19 Benadryl Injection - IVPUSH ONCE PRN ITCHING Diphenhydramine HCl 25 mg 08/07/18 15:54 Benadryl - PO Q6H PRN FOR ITCHING Docusate Sodium 100 mg 08/07/18 22:00 08/07/18 22:06 Colace - PO 100 mg TID [facility] Administration Fentanyl 50 mcg 08/07/18 08:19 Sublimaze Injection - IVPUSH [id number] PRN PAIN-PACU ORDER X 4 DOSES ONLY Ferrous Sulfate 325 mg 08/08/18 08:00 Feosol - PO DAILY@0800 [facility] Folic Acid 1 mg 08/08/18 10:00 Folic Acid - PO DAILY [facility] Heparin Sodium (Porcine) 5,000 unit 08/07/18 22:00 08/07/18 22:06 Heparin - SQ 5,000 unit TID [facility] Administration Hydromorphone HCl 10 mg 08/07/18 08:30 08/07/18 16:20 Dilaudid Hvac Service Tech - [employer]OCKEY IN[employer] 08/14/18 08:20 2.2 mg [employer] [facility] Administration Protocol Cefazolin Sodium 1 gm/ 50 mls @ 100 mls/hr 08/07/18 18:00 08/07/18 22:07 Dextrose IVPB 08/08/18 17:59 Not Given Q8H-IV JO Lactated Ringer's 1,000 ml in 1,000 mls @ 125 mls/hr 08/07/18 17:30 08/07/18 22:07 Lactated Ringers Solution IV 125 mls/hr ASDIR [facility] Administration Levothyroxine Sodium 50 mcg 08/08/18 07:00 Synthroid - PO DAILY@0700 [facility] Morphine Sulfate 4 mg 08/07/18 15:54 08/07/18 22:08 Morphine Injection IVPUSH 4 mg Q4H PRN Administration PAIN LEVEL 7 - 10 Non-Formulary Medication 1 gm 08/07/18 22:00 08/07/18 21:51 Icosapent Ethyl [Vascepa] PO Not Given TID [facility] Non-Formulary Medication 60 unit 08/07/18 22:00 08/07/18 21:53 Insulin Degludec [Tresiba Flextouch U-100] SQ Not Given HS [facility] Non-Formulary Medication 1 each 08/08/18 10:00 Insulin Pump Syringe, 1.8 Ml [Paradigm] SQ DAILY [facility] Ondansetron HCl 4 mg 08/07/18 08:19 Zofran Injection IVPUSH 08/08/18 03:00 Q4H PRN NAUSEA AND/OR VOMITING Ondansetron HCl 4 mg 08/07/18 15:54 Zofran Injection IVPUSH Q6H PRN NAUSEA Oxycodone HCl 5 mg 08/07/18 15:54 Roxicodone - PO Q4H PRN PAIN LEVEL 1 - 3 Oxycodone HCl 10 mg 08/07/18 15:54 Roxicodone - PO Q4H PRN PAIN LEVEL 4 - 6 Pregabalin 100 mg 08/07/18 22:00 08/07/18 22:06 Lyrica - PO 100 mg TID [facility] Administration Promethazine HCl 12.5 mg 08/07/18 08:19 Phenergan Injection - IVPB Q6H PRN NAUSEA AND/OR VOMITING Ranolazine 500 mg 08/07/18 22:00 08/07/18 22:06 Ranexa - PO 500 mg BID JO Administration Rosuvastatin Calcium 40 mg 08/08/18 22:00 Crestor - PO HS JO ASSESSMENT/PLAN: 58 yo F, PMH of morbid obesity, GERD, TIA (right sided deficits), IDDM ( insulin pump), Renal insufficiency, HLD, HTN, Asthma, YARI, and Hypothyroidism (2 /2 to goiter removal) presents to ICU for post op care/monitoring in ICU. POD 0 Exploration of spinal fusion with C3 caudal hemicorpectomy, C4 and C7 corpectomies, T1 rostral hemicorpectomy, C7 and T1 osteotomies with latter day lordosis, reconstruction Peek cages and anterior plating. Exploration of spinal fusion with C2-T1 laminectomies and C7 & T1 osteotomies with latter day of lordosis and C2-T1 posterior instrumention fusion. NEURO/post op care - AOX3 incentive spirometer neuro checks q2h camara pain ctl - HOCKEY INSTRUCTOR bowel regimen LR 125 cc zofran/phenergan for nausea Ancef post op abx PT eval cervical collar cardiac/pulm maintain MAP >65 cardiac monitoring O2 as needed c/w home ranolazine, statin RENAL camara monitor Cr UOP 0.5cc/kg/hr ENDO levothyroxine BGM ISS levemir 30 can increase based on BGMs/avoid hypoglycemia, on tresiba 60 at home (dont carry here in hospital) pt has pump at home but not for hospital use stage 1 DM ulcer on L big toe consider podiatry consult for DM foot ulcer on L big toe FEN LR 125cc replete prn soft diet ppx SQH protonix Dispo: ICU monitoring We will continue to follow the patient. Thank you for this consultative opportunity. Visit type - Emergency Visit Emergency Visit: Yes ED Registration Date: 08/07/18 Care time: The patient presented to the Emergency Department on the above date and was hospitalized for further evaluation of their emergent condition. - New Patient This patient is new to me today: Yes Date on this admission: 08/07/18 - Critical Care Critical Care patient: Yes Total Critical Care Time (in minutes): 38 Critical Care Statement: The care of this patient involved high complexity decision making to prevent further life threatening deterioration of the patient 's condition and/or to evaluate & treat vital organ system(s) failure or risk of failure.
[2018-08-07] MEDS ORDERED: INSULIN (LEVEMIR) 100 UNITS/ML UNITS SQ ONE (23:21)
[2018-08-08] MEDS: MUPIROCIN 2% TOPICAL OINTMENT FOR DECOLONIZATION NS SCH ×3 (00:07→21:26)
[2018-08-08] MEDS: INSULIN SLIDING SCALE (NOVOLOG) 1 VIAL SQ SCH ×5 (00:19→21:24)
[2018-08-08] MEDS ORDERED: METOPROLOL TARTRATE 5 MG/5 ML VIAL IVPUSH ONE (00:58)
[2018-08-08] MEDS: CEFAZOLIN 1 GM/D5W 1 GM/50 ML BAG IVPB SCH ×2 (01:11→09:33)
[2018-08-08 06:01] LABS: HEMATOCRIT 32.9 % (32.4-45.2); HEMOGLOBIN 10.7 GM/dL (10.7-15.3); MCH 27.7 pg (25.7-33.7); MCHC 32.5 g/dl (32.0-36.0); MEAN CELL VOLUME 85.2 fl (80-96); MEAN PLT VOLUME 7.9 fl (7.5-11.1); PLATELET COUNT 262 K/MM3 (134-434); RBC 3.86 M/mm3 (3.60-5.2); RDW 14.3 % (11.6-15.6); WHITE BLOOD COUNT 14.3 K/mm3 (4.0-10.0)
[2018-08-08] MEDS: HEPARIN NA (PORCINE) 5,000 UNITS/ML 1ML VIAL SQ SCH ×3 (06:35→21:23)
[2018-08-08] MEDS: LEVOTHYROXINE NA 50 MCG TABLET (FP) PO SCH (06:35)
[2018-08-08] MEDS: PREGABALIN 100 MG CAPSULE PO SCH ×3 (06:35→21:23)
[2018-08-08] MEDS: DOCUSATE SODIUM 100 MG CAPSULE (FP) PO SCH ×3 (06:35→21:23)
[2018-08-08] MEDS: PATIENT'S OWN MEDICATION (NON-FORMULARY) (Icosapent Ethyl [Vascepa] 1 GM) PO SCH ×2 (06:36→13:10)
[2018-08-08 06:40] LABS: ANION GAP 8 MMOL/L (8-16); BLOOD UREA NITROGEN 13 mg/dL (7-18); CALCIUM 8.7 mg/dL (8.5-10.1); CHLORIDE 101 mmol/L (98-107); CO2 27 mmol/L (21-32); CREATININE 0.6 mg/dL (0.55-1.3); GLUCOSE,RANDOM 250 mg/dL (74-106); MAGNESIUM 1.7 mg/dL (1.8-2.4); PHOSPHOROUS 4.4 mg/dL (2.5-4.9); SODIUM 137 mmol/L (136-145)
--- NOTE | 2018-08-08 08:16 | PN ---
Progress Note, Physician Chief Complaint: PATIENT IS MEDICALLY CLEARD FOR CERVICAL SPINE SURGERY AWAITING LABS - Current Medication List Current Medications: Active Medications Chlorhexidine Gluconate (Hibiclens For Decolonization -) 1 applic TP HS [facility] Diphenhydramine HCl (Benadryl Injection -) 12.5 mg IVPUSH ONCE PRN PRN Reason: ITCHING Diphenhydramine HCl (Benadryl -) 25 mg PO Q6H PRN PRN Reason: FOR ITCHING Docusate Sodium (Colace -) 100 mg PO TID [facility] Last Admin: 08/08/18 06:35 Dose: 100 mg Fentanyl (Sublimaze Injection -) 50 mcg IVPUSH [id number] PRN PRN Reason: PAIN-PACU ORDER X 4 DOSES ONLY Ferrous Sulfate (Feosol -) 325 mg PO DAILY@0800 [facility] Folic Acid (Folic Acid -) 1 mg PO DAILY [facility] Heparin Sodium (Porcine) (Heparin -) 5,000 unit SQ TID [facility] Last Admin: 08/08/18 06:35 Dose: 5,000 unit Hydromorphone HCl (Dilaudid Weatherization Coordinator -) 10 mg CIGAR SORTER CIGAR SORTER [facility]; Protocol Stop: 08/14/18 08:20 Last Admin: 08/07/18 16:20 Dose: 2.2 mg Lactated Ringer's (Lactated Ringers Solution) 1,000 ml in 1,000 mls @ 125 mls/ hr IV ASDIR [facility] Last Admin: 08/07/18 22:07 Dose: 125 mls/hr Cefazolin Sodium (Ancef 1 Gm Premixed Ivpb -) 1 gm in 50 mls @ 100 mls/hr IVPB Q8H-IV [facility] Stop: 08/08/18 17:59 Last Admin: 08/08/18 01:11 Dose: 100 mls/hr Insulin Aspart (Novolog Vial Sliding Scale -) 1 vial SQ ACHS [facility]; Protocol Last Admin: 08/08/18 06:39 Dose: 4 unit Levothyroxine Sodium (Synthroid -) 50 mcg PO DAILY@0700 [facility] Last Admin: 08/08/18 06:35 Dose: 50 mcg Morphine Sulfate (Morphine Injection) 4 mg IVPUSH Q4H PRN PRN Reason: PAIN LEVEL 7 - 10 Last Admin: 08/07/18 22:08 Dose: 4 mg Mupirocin (Bactroban Ointment (For Decolonization) -) 1 applic NS BID [facility] Stop: 08/12/18 22:59 Last Admin: 08/08/18 00:07 Dose: 1 applic Non-Formulary Medication (Icosapent Ethyl [Vascepa]) 1 gm PO TID [facility] Last Admin: 08/08/18 06:36 Dose: Not Given Non-Formulary Medication (Insulin Degludec [Tresiba Flextouch U-100]) 60 unit SQ [facility] Last Admin: 08/07/18 21:53 Dose: Not Given Non-Formulary Medication (Insulin Pump Syringe, 1.8 Ml [Paradigm]) 1 each SQ DAILY [facility] Ondansetron HCl (Zofran Injection) 4 mg IVPUSH Q6H PRN PRN Reason: NAUSEA Oxycodone HCl (Roxicodone -) 5 mg PO Q4H PRN PRN Reason: PAIN LEVEL 1 - 3 Oxycodone HCl (Roxicodone -) 10 mg PO Q4H PRN PRN Reason: PAIN LEVEL 4 - 6 Pantoprazole Sodium (Protonix Iv) 40 mg IVPUSH DAILY [facility] Pregabalin (Lyrica -) 100 mg PO TID [facility] Last Admin: 08/08/18 06:35 Dose: 100 mg Promethazine HCl (Phenergan Injection -) 12.5 mg IVPB Q6H PRN PRN Reason: NAUSEA AND/OR VOMITING Ranolazine (Ranexa -) 500 mg PO BID [facility] Last Admin: 08/07/18 22:06 Dose: 500 mg Rosuvastatin Calcium (Crestor -) 40 mg PO [facility] - Objective Vital Signs: Vital Signs Temperature 99.5 F 08/08/18 06:00 Pulse Rate 126 H 08/08/18 07:50 Respiratory Rate 16 08/08/18 07:50 Blood Pressure 158/66 08/08/18 07:50 O2 Sat by Pulse Oximetry (%) 96 08/08/18 07:50 Constitutional: Yes: Mild Distress Eyes: Yes: WNL HENT: Yes: WNL Neck: Yes: Tenderness Cardiovascular: Yes: WNL Respiratory: Yes: WNL Gastrointestinal: Yes: WNL Genitourinary: Yes: WNL Musculoskeletal: Yes: Back Pain, Muscle Pain, Muscle Weakness Extremities: Yes: WNL Edema: No Peripheral Pulses WNL: Yes Integumentary: Yes: WNL Wound/Incision: Yes: Clean/Dry Neurological: Yes: Numbness, Paresthesia, Pre-Existing Deficit, Weakness ...Motor Strength: AMBROSIO CARDENAS Psychiatric: Yes: WNL Labs: CBC, BMP 08/08/18 05:30 08/08/18 05:30 INR, PTT INR 1.04 (0.83-1.09) 08/07/18 06:41 Problem List - Problems (1) Cervical spine arthritis with nerve pain Code(s): M47.812 - SPONDYLOSIS W/O MYELOPATHY OR RADICULOPATHY, CERVICAL REGION ; M79.2 - NEURALGIA AND NEURITIS, UNSPECIFIED (2) Numbness and tingling Code(s): R20.0 - ANESTHESIA OF SKIN; R20.2 - PARESTHESIA OF SKIN Assessment/Plan MEDICALLY CLEARED FOR CERVICAL SPINE SURGERY AWAIT NEURO SURGERY ICU ADMISSION AFTER PROCEDURE MONITOR LABS/BGM
--- NOTE | 2018-08-08 08:16 | PN ---
Progress Note, Physician Chief Complaint: PATIENT is POD #1 after spinal fusion with C3 caudal hemicorpectomy, C4 and C7 corpectomies, T1 rostral hemicorpectomy, C7 and T1 osteotomies with quaker lordosis, reconstruction Peek cages and anterior plating. Exploration of spinal fusion with C2-T1 laminectomies and C7 & T1 osteotomies with quaker of lordosis and C2-T1 posterior instrumention fusion. - Current Medication List Current Medications: Active Medications Chlorhexidine Gluconate (Hibiclens For Decolonization -) 1 applic TP HS [facility] Diphenhydramine HCl (Benadryl Injection -) 12.5 mg IVPUSH ONCE PRN PRN Reason: ITCHING Diphenhydramine HCl (Benadryl -) 25 mg PO Q6H PRN PRN Reason: FOR ITCHING Docusate Sodium (Colace -) 100 mg PO TID [facility] Last Admin: 08/08/18 06:35 Dose: 100 mg Fentanyl (Sublimaze Injection -) 50 mcg IVPUSH [id number] PRN PRN Reason: PAIN-PACU ORDER X 4 DOSES ONLY Ferrous Sulfate (Feosol -) 325 mg PO DAILY@0800 [facility] Folic Acid (Folic Acid -) 1 mg PO DAILY [facility] Heparin Sodium (Porcine) (Heparin -) 5,000 unit SQ TID [facility] Last Admin: 08/08/18 06:35 Dose: 5,000 unit Hydromorphone HCl (Dilaudid Social Work Associate -) 10 mg OUTSOLE MOLDER OUTSOLE MOLDER [facility]; Protocol Stop: 08/14/18 08:20 Last Admin: 08/07/18 16:20 Dose: 2.2 mg Lactated Ringer's (Lactated Ringers Solution) 1,000 ml in 1,000 mls @ 125 mls/ hr IV ASDIR [facility] Last Admin: 08/07/18 22:07 Dose: 125 mls/hr Cefazolin Sodium (Ancef 1 Gm Premixed Ivpb -) 1 gm in 50 mls @ 100 mls/hr IVPB Q8H-IV [facility] Stop: 08/08/18 17:59 Last Admin: 08/08/18 01:11 Dose: 100 mls/hr Insulin Aspart (Novolog Vial Sliding Scale -) 1 vial SQ [facility]; Protocol Last Admin: 08/08/18 06:39 Dose: 4 unit Levothyroxine Sodium (Synthroid -) 50 mcg PO DAILY@0700 [facility] Last Admin: 08/08/18 06:35 Dose: 50 mcg Morphine Sulfate (Morphine Injection) 4 mg IVPUSH Q4H PRN PRN Reason: PAIN LEVEL 7 - 10 Last Admin: 08/07/18 22:08 Dose: 4 mg Mupirocin (Bactroban Ointment (For Decolonization) -) 1 applic NS BID [facility] Stop: 08/12/18 22:59 Last Admin: 08/08/18 00:07 Dose: 1 applic Non-Formulary Medication (Icosapent Ethyl [Vascepa]) 1 gm PO TID [facility] Last Admin: 08/08/18 06:36 Dose: Not Given Non-Formulary Medication (Insulin Degludec [Tresiba Flextouch U-100]) [address] [facility] Last Admin: 08/07/18 21:53 Dose: Not Given Non-Formulary Medication (Insulin Pump Syringe, 1.8 Ml [Paradigm]) 1 each SQ DAILY [facility] Ondansetron HCl (Zofran Injection) 4 mg IVPUSH Q6H PRN PRN Reason: NAUSEA Oxycodone HCl (Roxicodone -) 5 mg PO Q4H PRN PRN Reason: PAIN LEVEL 1 - 3 Oxycodone HCl (Roxicodone -) 10 mg PO Q4H PRN PRN Reason: PAIN LEVEL 4 - 6 Pantoprazole Sodium (Protonix Iv) 40 mg IVPUSH DAILY [facility] Pregabalin (Lyrica -) 100 mg PO TID [facility] Last Admin: 08/08/18 06:35 Dose: 100 mg Promethazine HCl (Phenergan Injection -) 12.5 mg IVPB Q6H PRN PRN Reason: NAUSEA AND/OR VOMITING Ranolazine (Ranexa -) 500 mg PO BID [facility] Last Admin: 08/07/18 22:06 Dose: 500 mg Rosuvastatin Calcium (Crestor -) 40 mg PO [facility] - Objective Vital Signs: Vital Signs Temperature 99.5 F 08/08/18 06:00 Pulse Rate 126 H 08/08/18 07:50 Respiratory Rate 16 08/08/18 07:50 Blood Pressure 158/66 08/08/18 07:50 O2 Sat by Pulse Oximetry (%) 96 08/08/18 07:50 Constitutional: Yes: Mild Distress Eyes: Yes: WNL HENT: Yes: Other Neck: Yes: Other (DRAINS) Cardiovascular: Yes: WNL Respiratory: Yes: WNL Gastrointestinal: Yes: WNL Musculoskeletal: Yes: Muscle Weakness Extremities: Yes: Other Integumentary: Yes: WNL Wound/Incision: Yes: Sutures Intact, Dressing Dry and Intact, Draining Neurological: Yes: Weakness ...Motor Strength: LLE, RLE Psychiatric: Yes: WNL Labs: CBC, BMP 08/08/18 05:30 08/08/18 05:30 INR, PTT INR 1.04 (0.83-1.09) 08/07/18 06:41 Problem List - Problems (1) H/O cervical spine surgery Code(s): Z98.890 - OTHER SPECIFIED POSTPROCEDURAL STATES (2) YOGESH (acute kidney injury) Code(s): N17.9 - ACUTE KIDNEY FAILURE, UNSPECIFIED (3) Diabetes Code(s): E11.9 - TYPE 2 DIABETES MELLITUS WITHOUT COMPLICATIONS (4) Numbness and tingling Code(s): R20.0 - ANESTHESIA OF SKIN; R20.2 - PARESTHESIA OF SKIN Assessment/Plan NEUROSURGERY EVAL MONITOR LABS PT SNF CHECK BGM MONITOR DRAINS AND WOUND CARE PAIN CONTROL DVT PROPHYLAXIS
[2018-08-08] MEDS: FERROUS SO4 325 MG TABLET (FP) PO SCH (09:00)
[2018-08-08] MEDS: PANTOPRAZOLE SODIUM 40 MG VIAL IVPUSH SCH (09:37)
[2018-08-08] MEDS: FOLIC ACID 1 MG TABLET (FP) PO SCH (09:37)
[2018-08-08] MEDS: RANOLAZINE E.R. 500 MG TABLET (FP) PO SCH ×2 (09:42→21:23)
[2018-08-08] MEDS ORDERED: INSULIN PUMP SQ SCH (10:00)
[2018-08-08] MEDS ORDERED: [UNRECOGNIZED DRUG - OTHER] SQ SCH (10:00)
[2018-08-08] MEDS: HYDROmorphone *PCA* 10MG/50ML DISP.SYRIN PCA SCH (10:48)
--- NOTE | 2018-08-08 13:26 | PN ---
Progress Note (short form) - Note Progress Note: Anesthesiology Post-op/Pain Service 58 y.o. woman POD#1 s/p Anterior cervical exploration with corpectomy and cage placement under GA. Pt. is sitting-up in NAD in chair. She does c/o pain but it is somewhat improved with EXTERNAL AUDITOR. RN states that EXTERNAL AUDITOR seems to work except that at night, she falls asleep, thus missing EXTERNAL AUDITOR doses, requiring PRN IV bolus. Otherwise, VSS, no other complaints. Just starting to take PO. 58 y.o. woman with stable post-operative course. Will continue EXTERNAL AUDITOR for now; d/w RN to try to transition to PO pain meds. Once this happens, will d/c EXTERNAL AUDITOR.
[2018-08-08] MEDS: oxyCODONE HCL 5 MG TABLET PO PRN (14:38)
[2018-08-08] MEDS ORDERED: PT OWN MED DRAWER 7, Y5N ONE (21:19)
[2018-08-08] MEDS: OMEGA-3 ACID ETHYL ESTERS (FATTY-ACIDS) 1 GM CAPSULE (FP) PO SCH (21:23)
[2018-08-08] MEDS: CHLORHEXIDINE GLUCONATE 4% CLEANSER FOR DECOLONIZATION TP SCH (21:26)
--- NOTE | 2018-08-08 22:31 | PN ---
Progress Note (short form) - Note Progress Note: CCN Seen and examined in ICU CC: dysuria HPI: pt is POD #1 after spinal fusion with C3 caudal hemicorpectomy, C4 and C7 corpectomies, T1 rostral hemicorpectomy, C7 and T1 osteotomies with gnosticism lordosis, reconstruction Peek cages and anterior plating. Exploration of spinal fusion with C2-T1 laminectomies and C7 & T1 osteotomies with gnosticism of lordosis and C2-T1 posterior instrumention fusion. Pt c/o dysuria and frequency today, noted to have very dirty UA from admission. Is tachycardic above baseline but afebrile. She is ICU for one day of post op observation. Will start ceftriaxone and resend UA and cxl Vital Signs Temp 98.9 F 08/08/18 10:00 Pulse 132 H 08/08/18 19:00 Resp 22 H 08/08/18 19:00 BP 140/68 08/08/18 19:00 Pulse Ox 98 08/08/18 19:57 Intake & Output 08/07/18 08/08/18 08/08/18 23:59 11:59 23:59 Intake Total 300 1576 2200 Output Total 2502 890 Balance 300 -926 1310 Intake: IV 300 1476 1500 LACTATED RINGERS SOLUTION 1460 1500 1,000 ml In 1,000 ml @ 125 mls/hr IV ASDIR [facility] Rx#:[id number] type copyist 16 IVPB 50 Oral 100 650 Output: Drainage 102 90 Anterior 2 Posterior 100 90 Urine 2400 800 Davies 2400 800 Other: Voiding Method Indwelling Catheter Indwelling Catheter Bedpan # Unmeasured Voids Davies 1 Active Medications Chlorhexidine Gluconate (Hibiclens For Decolonization -) 1 applic TP HS [facility] Last Admin: 08/08/18 21:26 Dose: Not Given Diphenhydramine HCl (Benadryl Injection -) 12.5 mg IVPUSH ONCE PRN PRN Reason: ITCHING Diphenhydramine HCl (Benadryl -) 25 mg PO Q6H PRN PRN Reason: FOR ITCHING Docusate Sodium (Colace -) 100 mg PO TID [facility] Last Admin: 08/08/18 21:23 Dose: 100 mg Fentanyl (Sublimaze Injection -) 50 mcg IVPUSH [id number] PRN PRN Reason: PAIN-PACU ORDER X 4 DOSES ONLY Ferrous Sulfate (Feosol -) 325 mg PO DAILY@0800 [facility] Last Admin: 08/08/18 09:00 Dose: 325 mg Folic Acid (Folic Acid -) 1 mg PO DAILY [facility] Last Admin: 08/08/18 09:37 Dose: 1 mg Heparin Sodium (Porcine) (Heparin -) 5,000 unit SQ TID [facility] Last Admin: 08/08/18 21:23 Dose: 5,000 unit Hydromorphone HCl (Dilaudid Woods Manager -) 10 mg PROPAGATION WORKER PROPAGATION WORKER [facility]; Protocol Stop: 08/14/18 08:20 Last Admin: 08/08/18 10:48 Dose: Not Given Insulin Aspart (Novolog Vial Sliding Scale -) 1 vial SQ ACHS [facility]; Protocol Last Admin: 08/08/18 21:24 Dose: 8 units Levothyroxine Sodium (Synthroid -) 50 mcg PO DAILY@0700 [facility] Last Admin: 08/08/18 06:35 Dose: 50 mcg Morphine Sulfate (Morphine Injection) 4 mg IVPUSH Q4H PRN PRN Reason: PAIN LEVEL 7 - 10 Last Admin: 08/07/18 22:08 Dose: 4 mg Mupirocin (Bactroban Ointment (For Decolonization) -) 1 applic NS BID [facility] Stop: 08/12/18 22:59 Last Admin: 08/08/18 21:26 Dose: 1 applic Non-Formulary Medication (Insulin Degludec [Tresiba Flextouch U-100]) 60 unit SQ HS [facility] Last Admin: 08/07/18 21:53 Dose: Not Given Fjegl-2-Ggdo Ethyl Esters (Lovaza -) 2 gm PO BID [facility] Last Admin: 08/08/18 21:23 Dose: 2 gm Ondansetron HCl (Zofran Injection) 4 mg IVPUSH Q6H PRN PRN Reason: NAUSEA Oxycodone HCl (Roxicodone -) 5 mg PO Q4H PRN PRN Reason: PAIN LEVEL 1 - 3 Last Admin: 08/08/18 14:38 Dose: 5 mg Oxycodone HCl (Roxicodone -) 10 mg PO Q4H PRN PRN Reason: PAIN LEVEL 4 - 6 Pantoprazole Sodium (Protonix Iv) 40 mg IVPUSH DAILY [facility] Last Admin: 08/08/18 09:37 Dose: 40 mg Pregabalin (Lyrica -) 100 mg PO TID [facility] Last Admin: 08/08/18 21:23 Dose: 100 mg Promethazine HCl (Phenergan Injection -) 12.5 mg IVPB Q6H PRN PRN Reason: NAUSEA AND/OR VOMITING Ranolazine (Ranexa -) 500 mg PO BID [facility] Last Admin: 08/08/18 21:23 Dose: 500 mg Rosuvastatin Calcium (Crestor -) 40 mg PO HS [facility] CBCD WBC 14.3 K/mm3 (4.0-10.0) H 08/08/18 05:30 RBC 3.86 M/mm3 (3.60-5.2) 08/08/18 05:30 Hgb 10.7 GM/dL (10.7-15.3) 08/08/18 05:30 Hct 32.9 % (32.4-45.2) D 08/08/18 05:30 MCV 85.2 fl (80-96) 08/08/18 05:30 MCHC 32.5 g/dl (32.0-36.0) 08/08/18 05:30 RDW 14.3 % (11.6-15.6) 08/08/18 05:30 Plt Count 262 K/MM3 (134-434) 08/08/18 05:30 MPV 7.9 fl (7.5-11.1) 08/08/18 05:30 CMP Sodium 137 mmol/L (136-145) 08/08/18 05:30 Potassium 4.0 mmol/L (3.5-5.1) 08/08/18 05:30 Chloride 101 mmol/L (98-107) 08/08/18 05:30 Carbon Dioxide 27 mmol/L (21-32) 08/08/18 05:30 Anion Gap 8 MMOL/L (8-16) 08/08/18 05:30 BUN 13 mg/dL (7-18) 08/08/18 05:30 Creatinine 0.6 mg/dL (0.55-1.3) 08/08/18 05:30 Creat Clearance w eGFR > 60 (>60) 08/08/18 05:30 Calcium 8.7 mg/dL (8.5-10.1) 08/08/18 05:30 Total Bilirubin 0.6 mg/dL (0.2-1) 08/07/18 06:41 AST 14 U/L (15-37) L 08/07/18 06:41 ALT 17 U/L (13-61) 08/07/18 06:41 Alkaline Phosphatase 95 U/L (45-117) 08/07/18 06:41 Total Protein 7.6 g/dl (6.4-8.2) 08/07/18 06:41 Albumin 3.9 g/dl (3.4-5.0) 08/07/18 06:41 Urine Test Results Urine Color Yellow 08/07/18 06:41 Urine Appearance Cloudy 08/07/18 06:41 Urine pH 5.0 (5.0-8.0) 08/07/18 06:41 Ur Specific [place] 1.022 (1.010-1.035) 08/07/18 06:41 Urine Protein 1+ (NEGATIVE) H 08/07/18 06:41 Urine Glucose (UA) 3+ (NEGATIVE) H 08/07/18 06:41 Urine Ketones 1+ (NEGATIVE) H 08/07/18 06:41 Urine Blood 1+ (NEGATIVE) H 08/07/18 06:41 Urine Nitrite Negative (NEGATIVE) 08/07/18 06:41 Urine Bilirubin Negative (<2.0 mg/dL) 08/07/18 06:41 Ur Leukocyte Esterase 3+ (NEGATIVE) H 08/07/18 06:41 Ur Epithelial Cells Many /HPF (FEW) 08/07/18 06:41 Urine Bacteria Rare /hpf (NONE SEEN) 08/07/18 06:41 Urine Mucus Few 08/07/18 06:41 GENERAL: AOX3 NAD HEENT: NCA, PERRL, extraocular movements intact, sclera anicteric, conjunctiva clear. No lid lag. MMM NECK: cervical collar LUNGS: CTAB HEART: RRR, normal S1 and S2 without m/r/g ABDOMEN: Soft, NTND,+BS, no guarding, no rebound, no masses. MUSCULOSKELETAL: Normal range of motion at all joints. No bony deformities or tenderness. UPPER EXTREMITIES: 2+ pulses, warm, well-perfused. No cyanosis. No clubbing. Cap refill <2 seconds. No peripheral edema. LOWER EXTREMITIES: 2+ pulses, warm, well-perfused. No calf tenderness. No peripheral edema. stage 1 DM ulcer on L big toe NEUROLOGICAL: Cranial nerves II-XII intact. Normal speech. sensation grossly intact LUE >RUE (chronic) PSYCHIATRIC: Cooperative. Good eye contact. Appropriate mood and affect. SKIN: Warm, dry, normal turgor, no rashes or lesions noted. stage 1 DM ulcer on L big toe, not hot NEUROLOGICAL: Cranial nerves II-XII intact. Normal speech. sensation grossly intact LUE >RUE (chronic), strength 5/5 LUE, 4/5 RUE (chronic) PSYCHIATRIC: WNL SKIN: grossly intact no rash A/ 58 y/o woman s/p spinal fusion with C3 caudal hemicorpectomy, C4 and C7 corpectomies, T1 rostral hemicorpectomy, C7 and T1 osteotomies with gnosticism lordosis, reconstruction Peek cages and anterior plating. Exploration of spinal fusion with C2-T1 laminectomies and C7 & T1 osteotomies with gnosticism of lordosis and C2-T1 posterior instrumention fusion. P/ POst op pain care as per anesthisa, primary team ceftriaxone, resend UA oob floor [place] ACNP
[2018-08-08] MEDS ORDERED: CEFTRIAXONE 1 GM in DEXTROSE 5%-WATER - 50 ML IVPB ONE (22:40)
[2018-08-08 22:54] LABS: URINE APPEARANCE CLEAR; URINE BILIRUBIN NEGATIVE (<2.0 mg/dL); URINE COLOR LTYELLOW; URINE GLUCOSE (UA) 2+ (NEGATIVE); URINE KETONE TRACE (NEGATIVE); URINE LEUK ESTERASE TRACE (NEGATIVE); URINE NITRITE NEGATIVE (NEGATIVE); URINE PROTEIN NEGATIVE (NEGATIVE); URINE UROBILINOGEN NEGATIVE mg/dL (0.2-1.0)
[2018-08-08] MEDS: ROSUVASTATIN CA 20 MG TABLET (FP) PO SCH (22:54)
[2018-08-08] MEDS: ACETAMINOPHEN 325 MG TABLET (FP) PO PRN (22:54)
[2018-08-08 22:58] LABS: EPI CELLS RARE /HPF (FEW); URINE MUCUS RARE
[2018-08-09] MEDS: PREGABALIN 100 MG CAPSULE PO SCH ×3 (06:17→21:13)
[2018-08-09] MEDS: INSULIN SLIDING SCALE (NOVOLOG) 1 VIAL SQ SCH ×4 (06:17→22:01)
[2018-08-09] MEDS: DOCUSATE SODIUM 100 MG CAPSULE (FP) PO SCH ×3 (06:17→21:13)
[2018-08-09] MEDS: HEPARIN NA (PORCINE) 5,000 UNITS/ML 1ML VIAL SQ SCH ×3 (06:17→21:13)
[2018-08-09] MEDS: LEVOTHYROXINE NA 50 MCG TABLET (FP) PO SCH (06:18)
[2018-08-09] MEDS: ACETAMINOPHEN 325 MG TABLET (FP) PO PRN ×3 (06:18→22:14)
--- NOTE | 2018-08-09 08:13 | PN ---
Progress Note (short form) - Note Progress Note: Anesthesia/pain Pt seen and examined S:Alert and awake comfortable O: Vital Signs Temperature 98.9 F 08/09/18 06:00 Pulse Rate 122 H 08/09/18 06:00 Respiratory Rate 16 08/09/18 06:00 Blood Pressure 126/108 H 08/09/18 06:00 O2 Sat by Pulse Oximetry (%) 98 08/08/18 19:57 CBC, BMP 08/08/18 05:30 08/08/18 05:30 A/P:C4-C7 cervical exploration fusion s/p Doing well post op Continue PHYSICAL THERAPY ASSISTANT Continue current care Amadou Valdes MD
[2018-08-09] MEDS: FERROUS SO4 325 MG TABLET (FP) PO SCH (09:00)
[2018-08-09] MEDS: OMEGA-3 ACID ETHYL ESTERS (FATTY-ACIDS) 1 GM CAPSULE (FP) PO SCH ×2 (09:24→21:13)
[2018-08-09] MEDS: PANTOPRAZOLE SODIUM 40 MG VIAL IVPUSH SCH (09:24)
[2018-08-09] MEDS: RANOLAZINE E.R. 500 MG TABLET (FP) PO SCH ×2 (09:24→21:13)
[2018-08-09] MEDS: FOLIC ACID 1 MG TABLET (FP) PO SCH (09:24)
[2018-08-09] MEDS: HYDROmorphone *PCA* 10MG/50ML DISP.SYRIN PCA SCH (09:25)
[2018-08-09 09:32] LABS: ANION GAP 9 MMOL/L (8-16); BLOOD UREA NITROGEN 11 mg/dL (7-18); CALCIUM 8.3 mg/dL (8.5-10.1); CHLORIDE 101 mmol/L (98-107); CO2 28 mmol/L (21-32); CREATININE 0.6 mg/dL (0.55-1.3); GLUCOSE,RANDOM 233 mg/dL (74-106); MAGNESIUM 1.9 mg/dL (1.8-2.4); POTASSIUM 3.6 mmol/L (3.5-5.1); SODIUM 138 mmol/L (136-145)
[2018-08-09] MEDS: MUPIROCIN 2% TOPICAL OINTMENT FOR DECOLONIZATION NS SCH ×2 (11:45→22:55)
--- NOTE | 2018-08-09 12:00 | PN ---
Progress Note, Physician Chief Complaint: AWAKE ALERT FEELING BETTER C/O POLYUREA - Current Medication List Current Medications: Active Medications Acetaminophen (Tylenol -) 650 mg PO Q4H PRN PRN Reason: FEVER Last Admin: 08/09/18 06:18 Dose: 650 mg Chlorhexidine Gluconate (Hibiclens For Decolonization -) 1 applic TP HS [facility] Last Admin: 08/08/18 21:26 Dose: Not Given Diphenhydramine HCl (Benadryl Injection -) 12.5 mg IVPUSH ONCE PRN PRN Reason: ITCHING Diphenhydramine HCl (Benadryl -) 25 mg PO Q6H PRN PRN Reason: FOR ITCHING Docusate Sodium (Colace -) 100 mg PO TID [facility] Last Admin: 08/09/18 06:17 Dose: 100 mg Fentanyl (Sublimaze Injection -) 50 mcg IVPUSH [id number] PRN PRN Reason: PAIN-PACU ORDER X 4 DOSES ONLY Ferrous Sulfate (Feosol -) 325 mg PO DAILY@0800 [facility] Last Admin: 08/09/18 09:00 Dose: 325 mg Folic Acid (Folic Acid -) 1 mg PO DAILY [facility] Last Admin: 08/09/18 09:24 Dose: 1 mg Heparin Sodium (Porcine) (Heparin -) 5,000 unit SQ TID [facility] Last Admin: 08/09/18 06:17 Dose: 5,000 unit Hydromorphone HCl (Dilaudid Africana Studies Professor -) 10 mg DIGITAL ACCOUNT SUPERVISOR DIGITAL ACCOUNT SUPERVISOR [facility]; Protocol Stop: 08/14/18 08:20 Last Admin: 08/09/18 09:25 Dose: 10 mg Insulin Aspart (Novolog Vial Sliding Scale -) 1 vial SQ ACHS [facility]; Protocol Last Admin: 08/09/18 11:55 Dose: 8 units Levothyroxine Sodium (Synthroid -) 50 mcg PO DAILY@0700 [facility] Last Admin: 08/09/18 06:18 Dose: 50 mcg Morphine Sulfate (Morphine Injection) 4 mg IVPUSH Q4H PRN PRN Reason: PAIN LEVEL 7 - 10 Last Admin: 08/07/18 22:08 Dose: 4 mg Mupirocin (Bactroban Ointment (For Decolonization) -) 1 applic NS BID [facility] Stop: 08/12/18 22:59 Last Admin: 08/09/18 11:45 Dose: Not Given Non-Formulary Medication (Insulin Degludec [Tresiba Flextouch U-100]) 60 unit SQ [facility] Last Admin: 08/07/18 21:53 Dose: Not Given Ljhzi-6-Pzjh Ethyl Esters (Lovaza -) 2 gm PO BID [facility] Last Admin: 08/09/18 09:24 Dose: 2 gm Ondansetron HCl (Zofran Injection) 4 mg IVPUSH Q6H PRN PRN Reason: NAUSEA Oxycodone HCl (Roxicodone -) 5 mg PO Q4H PRN PRN Reason: PAIN LEVEL 1 - 3 Last Admin: 08/08/18 14:38 Dose: 5 mg Oxycodone HCl (Roxicodone -) 10 mg PO Q4H PRN PRN Reason: PAIN LEVEL 4 - 6 Pantoprazole Sodium (Protonix Iv) 40 mg IVPUSH DAILY [facility] Last Admin: 08/09/18 09:24 Dose: 40 mg Pregabalin (Lyrica -) 100 mg PO TID [facility] Last Admin: 08/09/18 06:17 Dose: 100 mg Promethazine HCl (Phenergan Injection -) 12.5 mg IVPB Q6H PRN PRN Reason: NAUSEA AND/OR VOMITING Ranolazine (Ranexa -) 500 mg PO BID [facility] Last Admin: 08/09/18 09:24 Dose: 500 mg Rosuvastatin Calcium (Crestor -) 40 mg PO [facility] Last Admin: 08/08/18 22:54 Dose: 40 mg - Objective Vital Signs: Vital Signs Temperature 98.9 F 08/09/18 06:00 Pulse Rate 130 H 08/09/18 09:55 Respiratory Rate 17 08/09/18 09:55 Blood Pressure 108/62 08/09/18 09:55 O2 Sat by Pulse Oximetry (%) 98 08/09/18 08:04 Constitutional: Yes: Mild Distress Eyes: Yes: WNL HENT: Yes: WNL Neck: Yes: WNL Cardiovascular: Yes: Regular Rate and Rhythm Respiratory: Yes: CTA Bilaterally, On Nasal O2 Gastrointestinal: Yes: Soft, Abdomen, Obese Genitourinary: Yes: Other Musculoskeletal: Yes: Back Pain, Muscle Weakness Extremities: Yes: Other Edema: Yes Peripheral Pulses WNL: Yes Integumentary: Yes: Other Wound/Incision: Yes: Dressing Dry and Intact, Draining Neurological: Yes: Pre-Existing Deficit, Weakness ...Motor Strength: RUE, RLE Psychiatric: Yes: WNL Labs: CBC, BMP 08/08/18 05:30 08/09/18 08:59 INR, PTT INR 1.04 (0.83-1.09) 08/07/18 06:41 Problem List - Problems (1) Cervical spine arthritis with nerve pain Code(s): M47.812 - SPONDYLOSIS W/O MYELOPATHY OR RADICULOPATHY, CERVICAL REGION ; M79.2 - NEURALGIA AND NEURITIS, UNSPECIFIED (2) Numbness and tingling Code(s): R20.0 - ANESTHESIA OF SKIN; R20.2 - PARESTHESIA OF SKIN (3) Weakness Code(s): R53.1 - WEAKNESS (4) Polyuria Code(s): R35.8 - OTHER POLYURIA (5) Weakness Code(s): R53.1 - WEAKNESS Assessment/Plan POD #2 CERVICAL SPINE SURGERY AND EXPLORATION PAIN CONTROL SEND URINE FOR UA OOB TO CHAIR PT/SNF DVT PROPHYLAXIS INCENTIVE SPIROMETRY
[2018-08-09] MEDS: oxyCODONE HCL 5 MG TABLET PO PRN ×2 (15:37→19:23)
[2018-08-09 19:48] VITALS: BMI 38.9
[2018-08-09] MEDS: INSULIN (LEVEMIR) 100 UNITS/ML UNITS SQ SCH ×2 (21:12→22:57)
[2018-08-09] MEDS ORDERED: PT OWN MED DRAWER 7, Y5N ONE ×2 (21:17→21:18)
[2018-08-09] MEDS: ROSUVASTATIN CA 20 MG TABLET (FP) PO SCH (21:19)
[2018-08-09] MEDS: CHLORHEXIDINE GLUCONATE 4% CLEANSER FOR DECOLONIZATION TP SCH (22:55)
[2018-08-10] MEDS: oxyCODONE HCL 5 MG TABLET PO PRN ×4 (04:07→20:28)
[2018-08-10] MEDS: PREGABALIN 100 MG CAPSULE PO SCH ×3 (06:06→21:49)
[2018-08-10] MEDS: HEPARIN NA (PORCINE) 5,000 UNITS/ML 1ML VIAL SQ SCH ×3 (06:06→21:49)
[2018-08-10] MEDS: DOCUSATE SODIUM 100 MG CAPSULE (FP) PO SCH ×3 (06:07→21:48)
[2018-08-10] MEDS: INSULIN SLIDING SCALE (NOVOLOG) 1 VIAL SQ SCH ×4 (06:07→21:47)
[2018-08-10 06:20] LABS: BASO % 0.7 % (0-2.0); EOS % 1.3 % (0-4.5); HEMATOCRIT 30.5 % (32.4-45.2); HEMOGLOBIN 9.9 GM/dL (10.7-15.3); LYMPH % 23.4 % (8-40); MCH 27.5 pg (25.7-33.7); MCHC 32.5 g/dl (32.0-36.0); MEAN CELL VOLUME 84.9 fl (80-96); MEAN PLT VOLUME 8.2 fl (7.5-11.1); MONO % 7.4 % (3.8-10.2); NEUT % 67.2 % (42.8-82.8); PLATELET COUNT 226 K/MM3 (134-434); RBC 3.59 M/mm3 (3.60-5.2)
[2018-08-10] MEDS: LEVOTHYROXINE NA 50 MCG TABLET (FP) PO SCH (06:30)
[2018-08-10] MEDS: ACETAMINOPHEN 325 MG TABLET (FP) PO PRN ×2 (06:43→20:27)
[2018-08-10 06:57] LABS: ALBUMIN 2.8 g/dl (3.4-5.0); ALK PHOS 64 U/L (45-117); ANION GAP 10 MMOL/L (8-16); BILIRUBIN,TOTAL 0.5 mg/dL (0.2-1); BLOOD UREA NITROGEN 9 mg/dL (7-18); CHLORIDE 97 mmol/L (98-107); CO2 30 mmol/L (21-32); CREATININE 0.5 mg/dL (0.55-1.3); GLUCOSE,RANDOM 208 mg/dL (74-106); POTASSIUM 3.3 mmol/L (3.5-5.1); SGOT/AST 11 U/L (15-37); SGPT/ALT 11 U/L (13-61); SODIUM 136 mmol/L (136-145); TOT PROT 5.8 g/dl (6.4-8.2)
[2018-08-10] MEDS ORDERED: INSULIN (LEVEMIR) 100 UNITS/ML UNITS SQ SCH (07:30)
[2018-08-10] MEDS ORDERED: POTASSIUM CHLORIDE TABS 20 MEQ TABLET.ER (FP) PO ONE (07:34)
[2018-08-10 08:15] LABS: MAGNESIUM 2.1 mg/dL (1.8-2.4)
[2018-08-10] MEDS: FERROUS SO4 325 MG TABLET (FP) PO SCH (08:37)
--- NOTE | 2018-08-10 08:43 | PN ---
Progress Note (short form) - Note Progress Note: 58yo F s/p C2-T1 fusion, pt seen at bedside in ICU. Pt states that pain is well controlled. Pt denies n/v, fever, chills. Pt states that weakness and numbness in upper extremities is a little improved from her baseline. Pt does complain of some mild intermittant headache. Last Vital Signs Temp Pulse Resp BP Pulse Ox 98.5 F 103 H 12 132/73 98 08/10/18 02:00 08/10/18 06:00 08/10/18 06:00 08/10/18 06:00 08/09/18 21:00 CBC, BMP 08/10/18 05:30 08/10/18 05:30 PE: Gen: A&O x3 Resp: breathing comfortably Neck: incisions are clean with no erythema or discharge. Drain in place with serosanguinous drainage. Output: 30ml Ext: no numbness, 4/5 strength upper and lower extremities. Problem List - Problems (1) H/O cervical spine surgery Assessment/Plan: Plan -ok to transfer to the floor -OOB/ambulate -PT today -most-likely rehab placement -dvt ppx -can advance to regular diet if can tolerate Code(s): Z98.890 - OTHER SPECIFIED POSTPROCEDURAL STATES
--- NOTE | 2018-08-10 09:02 | PN ---
Progress Note, Physician - Current Medication List Current Medications: Active Medications Acetaminophen (Tylenol -) 650 mg PO Q4H PRN PRN Reason: FEVER Last Admin: 08/10/18 06:43 Dose: 650 mg Chlorhexidine Gluconate (Hibiclens For Decolonization -) 1 applic TP HS [facility] Last Admin: 08/09/18 22:55 Dose: 1 applic Diphenhydramine HCl (Benadryl Injection -) 12.5 mg IVPUSH ONCE PRN PRN Reason: ITCHING Diphenhydramine HCl (Benadryl -) 25 mg PO Q6H PRN PRN Reason: FOR ITCHING Docusate Sodium (Colace -) 100 mg PO TID [facility] Last Admin: 08/10/18 06:07 Dose: 100 mg Fentanyl (Sublimaze Injection -) 50 mcg IVPUSH [id number] PRN PRN Reason: PAIN-PACU ORDER X 4 DOSES ONLY Ferrous Sulfate (Feosol -) 325 mg PO DAILY@0800 [facility] Last Admin: 08/10/18 08:37 Dose: 325 mg Folic Acid (Folic Acid -) 1 mg PO DAILY [facility] Last Admin: 08/09/18 09:24 Dose: 1 mg Heparin Sodium (Porcine) (Heparin -) 5,000 unit SQ TID [facility] Last Admin: 08/10/18 06:06 Dose: 5,000 unit Insulin Aspart (Novolog Vial Sliding Scale -) 1 vial SQ [facility]; Protocol Last Admin: 08/10/18 06:07 Dose: 6 units Insulin Detemir (Levemir Vial) 25 units SQ [facility] Levothyroxine Sodium (Synthroid -) 50 mcg PO DAILY@0700 [facility] Last Admin: 08/10/18 06:30 Dose: 50 mcg Morphine Sulfate (Morphine Injection) 4 mg IVPUSH Q4H PRN PRN Reason: PAIN LEVEL 7 - 10 Last Admin: 08/07/18 22:08 Dose: 4 mg Mupirocin (Bactroban Ointment (For Decolonization) -) 1 applic NS BID [facility] Stop: 08/12/18 22:59 Last Admin: 08/09/18 22:55 Dose: 1 applic [id number]-[id number] Ethyl Esters (Lovaza -) 2 gm PO BID [facility] Last Admin: 08/09/18 21:13 Dose: 2 gm Ondansetron HCl (Zofran Injection) 4 mg IVPUSH Q6H PRN PRN Reason: NAUSEA Oxycodone HCl (Roxicodone -) 5 mg PO Q4H PRN PRN Reason: PAIN LEVEL 1 - 3 Last Admin: 08/09/18 15:37 Dose: 5 mg Oxycodone HCl (Roxicodone -) 10 mg PO Q4H PRN PRN Reason: PAIN LEVEL 4 - 6 Last Admin: 08/10/18 04:07 Dose: 10 mg Pantoprazole Sodium (Protonix -) 40 mg PO DAILY [facility] Pregabalin (Lyrica -) 100 mg PO TID [facility] Last Admin: 08/10/18 06:06 Dose: 100 mg Promethazine HCl (Phenergan Injection -) 12.5 mg IVPB Q6H PRN PRN Reason: NAUSEA AND/OR VOMITING Ranolazine (Ranexa -) 500 mg PO BID [facility] Last Admin: 08/09/18 21:13 Dose: 500 mg Rosuvastatin Calcium (Crestor -) 40 mg PO [facility] Last Admin: 08/09/18 21:19 Dose: 40 mg Senna (Senna -) 2 tab PO [facility] - Objective Vital Signs: Vital Signs Temperature 98.5 F 08/10/18 02:00 Pulse Rate 103 H 08/10/18 06:00 Respiratory Rate 12 08/10/18 06:00 Blood Pressure 132/73 08/10/18 06:00 O2 Sat by Pulse Oximetry (%) 98 08/09/18 21:00 Cardiovascular: Yes: S1, S2 Respiratory: Yes: Regular, CTA Bilaterally Gastrointestinal: Yes: Normal Bowel Sounds, Soft Neurological: Yes: Alert, Oriented, Other (brace on neck) Labs: CBC, BMP 08/10/18 05:30 08/10/18 05:30 INR, PTT INR 1.04 (0.83-1.09) 08/07/18 06:41 Problem List - Problems (1) H/O cervical spine surgery Assessment/Plan: -Per NS -PT -Pain Controll Code(s): Z98.890 - OTHER SPECIFIED POSTPROCEDURAL STATES (2) Diabetes Assessment/Plan: -Bgm and monitor Code(s): E11.9 - TYPE 2 DIABETES MELLITUS WITHOUT COMPLICATIONS (3) Hypothyroidism Code(s): E03.9 - HYPOTHYROIDISM, UNSPECIFIED (4) Leukocytosis Assessment/Plan: -Maybe from dexamethasone -Monitor Code(s): D72.829 - ELEVATED WHITE BLOOD CELL COUNT, UNSPECIFIED
[2018-08-10] MEDS: OMEGA-3 ACID ETHYL ESTERS (FATTY-ACIDS) 1 GM CAPSULE (FP) PO SCH ×2 (09:18→21:49)
[2018-08-10] MEDS: RANOLAZINE E.R. 500 MG TABLET (FP) PO SCH ×2 (09:18→21:49)
[2018-08-10] MEDS ORDERED: PANTOPRAZOLE 40 MG TABLET (FP) PO SCH (10:00)
[2018-08-10] MEDS: FOLIC ACID 1 MG TABLET (FP) PO SCH (10:40)
[2018-08-10] MEDS: MUPIROCIN 2% TOPICAL OINTMENT FOR DECOLONIZATION NS SCH (10:40)
[2018-08-10] MEDS ORDERED: INSULIN (NOVOLOG) ASPART 100 UNITS/ML 10ML VIAL ONE ×2 (11:35→21:38)
--- NOTE | 2018-08-10 11:49 | PN ---
Teaching Attending Note Name of Resident: Nestor Wu ATTENDING PHYSICIAN STATEMENT I saw and evaluated the patient. I reviewed the resident's note and discussed the case with the resident. I agree with the resident's findings and plan as documented. SUBJECTIVE: Patient seen and examined in the ICU. Awake and alert. Pain seems adequately controlled. No acute events overnight. No CP or SOB. Intake & Output 08/07/18 08/08/18 08/09/18 08/10/18 23:59 23:59 23:59 23:59 Intake Total 5300 4051 650 400 Output Total 1250 3692 815 30 Balance 4050 359 -165 370 Weight 227 lb 222 lb 9.6 oz Last Vital Signs Temp Pulse Resp BP Pulse Ox 98.3 F 114 H 16 128/69 98 08/10/18 10:00 08/10/18 10:00 08/10/18 10:00 08/10/18 10:00 08/10/18 09:00 Active Medications Acetaminophen (Tylenol -) 650 mg PO Q4H PRN PRN Reason: FEVER Last Admin: 08/10/18 06:43 Dose: 650 mg Chlorhexidine Gluconate (Hibiclens For Decolonization -) 1 applic TP HS [facility] Last Admin: 08/09/18 22:55 Dose: 1 applic Diphenhydramine HCl (Benadryl Injection -) 12.5 mg IVPUSH ONCE PRN PRN Reason: ITCHING Diphenhydramine HCl (Benadryl -) 25 mg PO Q6H PRN PRN Reason: FOR ITCHING Docusate Sodium (Colace -) 100 mg PO TID [facility] Last Admin: 08/10/18 06:07 Dose: 100 mg Fentanyl (Sublimaze Injection -) 50 mcg IVPUSH [id number] PRN PRN Reason: PAIN-PACU ORDER X 4 DOSES ONLY Ferrous Sulfate (Feosol -) 325 mg PO DAILY@0800 [facility] Last Admin: 08/10/18 08:37 Dose: 325 mg Folic Acid (Folic Acid -) 1 mg PO DAILY [facility] Last Admin: 08/09/18 09:24 Dose: 1 mg Heparin Sodium (Porcine) (Heparin -) 5,000 unit SQ TID [facility] Last Admin: 08/10/18 06:06 Dose: 5,000 unit Insulin Aspart (Novolog Vial Sliding Scale -) 1 vial SQ [facility]; Protocol Last Admin: 08/10/18 11:36 Dose: 8 units Insulin Detemir (Levemir Vial) 25 units SQ [facility] Levothyroxine Sodium (Synthroid -) 50 mcg PO DAILY@0700 [facility] Last Admin: 08/10/18 06:30 Dose: 50 mcg Morphine Sulfate (Morphine Injection) 4 mg IVPUSH Q4H PRN PRN Reason: PAIN LEVEL 7 - 10 Last Admin: 08/07/18 22:08 Dose: 4 mg Mupirocin (Bactroban Ointment (For Decolonization) -) 1 applic NS BID [facility] Stop: 08/12/18 22:59 Last Admin: 08/09/18 22:55 Dose: 1 applic Goudf-0-Ival Ethyl Esters (Lovaza -) 2 gm PO BID [facility] Last Admin: 08/10/18 09:18 Dose: 2 gm Ondansetron HCl (Zofran Injection) 4 mg IVPUSH Q6H PRN PRN Reason: NAUSEA Oxycodone HCl (Roxicodone -) 5 mg PO Q4H PRN PRN Reason: PAIN LEVEL 1 - 3 Last Admin: 08/09/18 15:37 Dose: 5 mg Oxycodone HCl (Roxicodone -) 10 mg PO Q4H PRN PRN Reason: PAIN LEVEL 4 - 6 Last Admin: 08/10/18 09:27 Dose: 10 mg Pantoprazole Sodium (Protonix -) 40 mg PO DAILY [facility] Last Admin: 08/10/18 09:18 Dose: 40 mg Pregabalin (Lyrica -) 100 mg PO TID [facility] Last Admin: 08/10/18 06:06 Dose: 100 mg Promethazine HCl (Phenergan Injection -) 12.5 mg IVPB Q6H PRN PRN Reason: NAUSEA AND/OR VOMITING Ranolazine (Ranexa -) 500 mg PO BID [facility] Last Admin: 08/10/18 09:18 Dose: 500 mg Rosuvastatin Calcium (Crestor -) 40 mg PO HS [facility] Last Admin: 08/09/18 21:19 Dose: 40 mg Senna (Senna -) 2 tab PO [facility] GENERAL: AOX3 NAD HEENT: sclera anicteric, conjunctiva clear. NECK: cervical collar LUNGS: Clear HEART: RRR, normal S1 and S2 without m/r/g ABDOMEN: Soft, NTND,+BS, no guarding, no rebound, no masses. MUSCULOSKELETAL: Normal range of motion at all joints. No bony deformities or tenderness. UPPER EXTREMITIES: 2+ pulses, warm, well-perfused. No cyanosis. No clubbing. No peripheral edema. LOWER EXTREMITIES: 2+ pulses, warm, well-perfused. No calf tenderness. No peripheral edema. stage 1 DM ulcer on L big toe PSYCHIATRIC: Cooperative. Good eye contact. Appropriate mood and affect. SKIN: Warm, dry, normal turgor, no rashes or lesions noted. stage 1 DM ulcer on L big toe NEUROLOGICAL: Nonfocal. Normal speech. Sensation grossly intact LUE >RUE ( chronic), strength 5/5 LUE, 4/5 RUE (chronic) PSYCHIATRIC: WNL SKIN: grossly intact no rash Laboratory Results - last 24 hr 08/09/18 08/09/18 08/09/18 11:50 11:54 16:33 WBC RBC Hgb Hct MCV MCH MCHC RDW Plt Count MPV Absolute Neuts (auto) Neutrophils % Lymphocytes % Monocytes % Eosinophils % Basophils % Nucleated RBC % Sodium Potassium Chloride Carbon Dioxide Anion Gap BUN Creatinine Creat Clearance w eGFR POC Glucometer 82.40558 337.48664 352.40913 Random Glucose Calcium Phosphorus Magnesium Total Bilirubin AST ALT Alkaline Phosphatase Total Protein Albumin 08/09/18 08/10/18 08/10/18 21:58 05:30 05:30 WBC 14.0 H RBC 3.59 L Hgb 9.9 L Hct 30.5 L MCV 84.9 MCH 27.5 MCHC 32.5 RDW 14.0 Plt Count 226 MPV 8.2 Absolute Neuts (auto) 9.4 H Neutrophils % 67.2 D Lymphocytes % 23.4 D Monocytes % 7.4 Eosinophils % 1.3 D Basophils % 0.7 Nucleated RBC % 0 Sodium 136 Potassium 3.3 L Chloride 97 L Carbon Dioxide 30 Anion Gap 10 BUN 9 Creatinine 0.5 L Creat Clearance w eGFR > 60 POC Glucometer 301.23635 Random Glucose 208 H Calcium 8.0 L Phosphorus 3.0 Magnesium 2.1 Total Bilirubin 0.5 AST 11 L ALT 11 L Alkaline Phosphatase 64 Total Protein 5.8 L Albumin 2.8 L 08/10/18 06:04 WBC RBC Hgb Hct MCV MCH MCHC RDW Plt Count MPV Absolute Neuts (auto) Neutrophils % Lymphocytes % Monocytes % Eosinophils % Basophils % Nucleated RBC % Sodium Potassium Chloride Carbon Dioxide Anion Gap BUN Creatinine Creat Clearance w eGFR POC Glucometer 251.86364 Random Glucose Calcium Phosphorus Magnesium Total Bilirubin AST ALT Alkaline Phosphatase Total Protein Albumin IMP: POD #3: Spinal fusion with C3 caudal hemicorpectomy, C4 and C7 corpectomies, T1 rostral hemicorpectomy, C7 and T1 osteotomies with uatsdin lordosis, reconstruction Peek cages and anterior plating. Exploration of spinal fusion with C2-T1 laminectomies and C7 & T1 osteotomies with uatsdin of lordosis and C2-T1 posterior instrumention fusion. PLAN: Postop pain meds as ordered Hard collar in place O2 as needed VTE prophylaxis Incentive Spirometry OOB Floor Dr Casanova
--- NOTE | 2018-08-10 12:51 | PN ---
Physical Exam: SUBJECTIVE: Patient seen and examined in the ICU. no acute events overnight. pain is ctl. POD 3. denies fever, cp, sob, worsening numb or tingling. tolerating PO well OBJECTIVE: Vital Signs Period Temp Pulse Resp BP Sys/Urena Pulse Ox Last 24 Hr 98.3 F-99.2 F 101-130 10-20 100-132/55-85 98-98 GENERAL: AOX3 NAD HEENT: NCA, PERRL, extraocular movements intact, sclera anicteric, conjunctiva clear. No lid lag. MMM NECK: cervical collar LUNGS: CTAB HEART: RRR, normal S1 and S2 without m/r/g ABDOMEN: Soft, NTND,+BS, no guarding, no rebound, no masses. MUSCULOSKELETAL: Normal range of motion at all joints. No bony deformities or tenderness. UPPER EXTREMITIES: 2+ pulses, warm, well-perfused. No cyanosis. No clubbing. Cap refill <2 seconds. No peripheral edema. LOWER EXTREMITIES: 2+ pulses, warm, well-perfused. No calf tenderness. No peripheral edema. stage 1 DM ulcer on L big toe NEUROLOGICAL: Cranial nerves II-XII intact. Normal speech. sensation grossly intact LUE >RUE (chronic), strength 5/5 LUE, 4/5 RUE (chronic) PSYCHIATRIC: Cooperative. Good eye contact. Appropriate mood and affect. SKIN: Warm, dry, normal turgor, no rashes or lesions noted. stage 1 DM ulcer on L big toe Laboratory Results - last 24 hr 08/09/18 08/09/18 08/09/18 11:50 11:54 16:33 WBC RBC Hgb Hct MCV MCH MCHC RDW Plt Count MPV Absolute Neuts (auto) Neutrophils % Lymphocytes % Monocytes % Eosinophils % Basophils % Nucleated RBC % Sodium Potassium Chloride Carbon Dioxide Anion Gap BUN Creatinine Creat Clearance w eGFR POC Glucometer 82.65063 337.05194 352.49740 Random Glucose Calcium Phosphorus Magnesium Total Bilirubin AST ALT Alkaline Phosphatase Total Protein Albumin 08/09/18 08/10/18 08/10/18 21:58 05:30 05:30 WBC 14.0 H RBC 3.59 L Hgb 9.9 L Hct 30.5 L MCV 84.9 MCH 27.5 MCHC 32.5 RDW 14.0 Plt Count 226 MPV 8.2 Absolute Neuts (auto) 9.4 H Neutrophils % 67.2 D Lymphocytes % 23.4 D Monocytes % 7.4 Eosinophils % 1.3 D Basophils % 0.7 Nucleated RBC % 0 Sodium 136 Potassium 3.3 L Chloride 97 L Carbon Dioxide 30 Anion Gap 10 BUN 9 Creatinine 0.5 L Creat Clearance w eGFR > 60 POC Glucometer [phone] Random Glucose 208 H Calcium 8.0 L Phosphorus 3.0 Magnesium 2.1 Total Bilirubin 0.5 AST 11 L ALT 11 L Alkaline Phosphatase 64 Total Protein 5.8 L Albumin 2.8 L 08/10/18 06:04 WBC RBC Hgb Hct MCV MCH MCHC RDW Plt Count MPV Absolute Neuts (auto) Neutrophils % Lymphocytes % Monocytes % Eosinophils % Basophils % Nucleated RBC % Sodium Potassium Chloride Carbon Dioxide Anion Gap BUN Creatinine Creat Clearance w eGFR POC Glucometer [phone] Random Glucose Calcium Phosphorus Magnesium Total Bilirubin AST ALT Alkaline Phosphatase Total Protein Albumin Active Medications Generic Name Dose Route Start Last Admin Trade Name Freq PRN Reason Stop Dose Admin Acetaminophen 650 mg 08/08/18 22:39 08/10/18 06:43 Tylenol - PO 650 mg Q4H PRN Administration FEVER Chlorhexidine Gluconate 1 applic 08/08/18 22:00 08/09/18 22:55 Hibiclens For Decolonization - TP 1 applic HS JO Administration Diphenhydramine HCl 12.5 mg 08/07/18 08:19 Benadryl Injection - IVPUSH ONCE PRN ITCHING Diphenhydramine HCl 25 mg 08/07/18 15:54 Benadryl - PO Q6H PRN FOR ITCHING Docusate Sodium 100 mg 08/07/18 22:00 08/10/18 06:07 Colace - PO 100 mg TID JO Administration Fentanyl 50 mcg 08/07/18 08:19 Sublimaze Injection - IVPUSH [id number] PRN PAIN-PACU ORDER X 4 DOSES ONLY Ferrous Sulfate 325 mg 08/08/18 08:00 08/10/18 08:37 Feosol - PO 325 mg DAILY@0800 JO Administration Folic Acid 1 mg 08/08/18 10:00 08/09/18 09:24 Folic Acid - PO 1 mg DAILY JO Administration Heparin Sodium (Porcine) 5,000 unit 08/07/18 22:00 08/10/18 06:06 Heparin - SQ 5,000 unit TID JO Administration Insulin Aspart 1 vial 08/08/18 07:00 08/10/18 11:36 Novolog Vial Sliding Scale - SQ 8 units ACHS JO Administration Protocol Insulin Detemir 25 units 08/10/18 07:30 Levemir Vial SQ HS JO Levothyroxine Sodium 50 mcg 08/08/18 07:00 08/10/18 06:30 Synthroid - PO 50 mcg DAILY@0700 JO Administration Morphine Sulfate 4 mg 08/07/18 15:54 08/07/18 22:08 Morphine Injection IVPUSH 4 mg Q4H PRN Administration PAIN LEVEL 7 - 10 Mupirocin 1 applic 08/07/18 23:00 08/09/18 22:55 Bactroban Ointment (For Decolonization) - NS 08/12/18 22:59 1 applic BID JO Administration Leaiw-1-Oroa Ethyl Esters 2 gm 08/08/18 16:04 08/10/18 09:18 Lovaza - PO 2 gm BID JO Administration Ondansetron HCl 4 mg 08/07/18 15:54 Zofran Injection IVPUSH Q6H PRN NAUSEA Oxycodone HCl 5 mg 08/07/18 15:54 08/09/18 15:37 Roxicodone - PO 5 mg Q4H PRN Administration PAIN LEVEL 1 - 3 Oxycodone HCl 10 mg 08/07/18 15:54 08/10/18 09:27 Roxicodone - PO 10 mg Q4H PRN Administration PAIN LEVEL 4 - 6 Pantoprazole Sodium 40 mg 08/10/18 10:00 08/10/18 09:18 Protonix - PO 40 mg DAILY JO Administration Pregabalin 100 mg 08/07/18 22:00 08/10/18 06:06 Lyrica - PO 100 mg TID JO Administration Promethazine HCl 12.5 mg 08/07/18 08:19 Phenergan Injection - IVPB Q6H PRN NAUSEA AND/OR VOMITING Ranolazine 500 mg 08/07/18 22:00 08/10/18 09:18 Ranexa - PO 500 mg BID JO Administration Rosuvastatin Calcium 40 mg 08/08/18 22:00 08/09/18 21:19 Crestor - PO 40 mg HS JO Administration Senna 2 tab 08/10/18 22:00 Senna - PO HS JO ASSESSMENT/PLAN: 58 yo F, PMH of morbid obesity, GERD, TIA (right sided deficits), IDDM ( insulin pump), Renal insufficiency, HLD, HTN, Asthma, YARI, and Hypothyroidism (2 /2 to goiter removal) presents to ICU for post op care/monitoring in ICU. POD 3 Exploration of spinal fusion with C3 caudal hemicorpectomy, C4 and C7 corpectomies, T1 rostral hemicorpectomy, C7 and T1 osteotomies with nondenominational lordosis, reconstruction Peek cages and anterior plating. Exploration of spinal fusion with C2-T1 laminectomies and C7 & T1 osteotomies with nondenominational of lordosis and C2-T1 posterior instrumention fusion. NEURO/post op care - AOX3 incentive spirometer neuro checks as needed pain ctl bowel regimen zofran/phenergan for nausea s/p Ancef post op abx PT eval cervical collar OOB/ambulate cardiac/pulm maintain MAP >65 cardiac monitoring O2 as needed c/w home ranolazine, statin RENAL monitor Cr UOP 0.5cc/kg/hr ENDO levothyroxine BGM ISS levemir 25 can increase based on BGMs/avoid hypoglycemia, on tresiba 60 at home (dont carry here in hospital) pt has pump at home but not for hospital use stage 1 DM ulcer on L big toe consider podiatry consult for DM foot ulcer on L big toe FEN no IVF replete prn DM/Na ctl diet ppx SQH protonix Dispo: pt stable and ready for transfer ot floors. further care per primary team/PCP Visit type - Emergency Visit Emergency Visit: Yes ED Registration Date: 08/07/18 Care time: The patient presented to the Emergency Department on the above date and was hospitalized for further evaluation of their emergent condition. - New Patient This patient is new to me today: Yes Date on this admission: 08/10/18 - Critical Care Critical Care patient: Yes Total Critical Care Time (in minutes): 38 Critical Care Statement: The care of this patient involved high complexity decision making to prevent further life threatening deterioration of the patient 's condition and/or to evaluate & treat vital organ system(s) failure or risk of failure.
[2018-08-10] MEDS ORDERED: ONDANSETRON 4 MG/2 ML VIAL IVPUSH PRN (19:43)
[2018-08-10] MEDS ORDERED: MORPHINE SULFATE 8 MG/ML VIAL IVPUSH PRN (19:43)
[2018-08-10] MEDS ORDERED: PROMETHAZINE HCL 25 MG/1 ML VIAL IVPB PRN (19:43)
[2018-08-10] MEDS ORDERED: oxyCODONE HCL 5 MG TABLET PO PRN (19:43)
[2018-08-10] MEDS ORDERED: DEXAMETHASONE SOD PHOSPHATE 4 MG/1 ML VIAL IVPUSH ONE (19:43)
[2018-08-10] MEDS ORDERED: diphenhydrAMINE HCL 25 MG CAPSULE (FP) PO PRN (19:43)
[2018-08-10] MEDS ORDERED: ROSUVASTATIN CA 10 MG TABLET (FP) ONE (21:38)
[2018-08-10] MEDS: ROSUVASTATIN CA 20 MG TABLET (FP) PO SCH (21:48)
[2018-08-10] MEDS: SENNOSIDES 8.6MG TABLET (FP) PO SCH (21:49)
[2018-08-10] MEDS ORDERED: SENNOSIDES 8.6MG TABLET (FP) PO SCH (22:00)
[2018-08-11] MEDS: oxyCODONE HCL 5 MG TABLET PO PRN ×4 (00:36→20:35)
[2018-08-11] MEDS: ACETAMINOPHEN 325 MG TABLET (FP) PO PRN ×3 (05:39→20:35)
[2018-08-11] MEDS ORDERED: INSULIN (NOVOLOG) ASPART 100 UNITS/ML 10ML VIAL ONE ×2 (06:02→21:19)
[2018-08-11] MEDS: PREGABALIN 100 MG CAPSULE PO SCH ×3 (06:12→21:32)
[2018-08-11] MEDS: INSULIN (LEVEMIR) 100 UNITS/ML UNITS SQ SCH ×2 (06:12→17:20)
[2018-08-11] MEDS: HEPARIN NA (PORCINE) 5,000 UNITS/ML 1ML VIAL SQ SCH ×3 (06:12→21:32)
[2018-08-11] MEDS: DOCUSATE SODIUM 100 MG CAPSULE (FP) PO SCH ×3 (06:12→21:33)
[2018-08-11] MEDS: INSULIN SLIDING SCALE (NOVOLOG) 1 VIAL SQ SCH ×4 (06:13→21:31)
[2018-08-11] MEDS: LEVOTHYROXINE NA 50 MCG TABLET (FP) PO SCH (06:13)
[2018-08-11] MEDS: FERROUS SO4 325 MG TABLET (FP) PO SCH (08:02)
[2018-08-11 08:22] LABS: BASO % 0.6 % (0-2.0); EOS % 3.4 % (0-4.5); HEMATOCRIT 30.6 % (32.4-45.2); HEMOGLOBIN 10.4 GM/dL (10.7-15.3); LYMPH % 23.6 % (8-40); MCH 28.7 pg (25.7-33.7); MCHC 34.1 g/dl (32.0-36.0); MEAN PLT VOLUME 8.7 fl (7.5-11.1); MONO % 4.9 % (3.8-10.2); NEUT % 67.5 % (42.8-82.8); PLATELET COUNT 256 K/MM3 (134-434); RBC 3.64 M/mm3 (3.60-5.2); RDW 13.7 % (11.6-15.6); WHITE BLOOD COUNT 11.7 K/mm3 (4.0-10.0)
[2018-08-11 08:24] LABS: ALBUMIN 2.9 g/dl (3.4-5.0); ALK PHOS 68 U/L (45-117); ANION GAP 12 MMOL/L (8-16); BILIRUBIN,TOTAL 0.5 mg/dL (0.2-1); BLOOD UREA NITROGEN 8 mg/dL (7-18); CALCIUM 8.3 mg/dL (8.5-10.1); CHLORIDE 98 mmol/L (98-107); CO2 28 mmol/L (21-32); CREATININE 0.6 mg/dL (0.55-1.3); GLUCOSE,RANDOM 249 mg/dL (74-106); MAGNESIUM 2.1 mg/dL (1.8-2.4); PHOSPHOROUS 3.2 mg/dL (2.5-4.9); POTASSIUM 3.4 mmol/L (3.5-5.1); SGOT/AST 13 U/L (15-37); SGPT/ALT 12 U/L (13-61); SODIUM 138 mmol/L (136-145)
[2018-08-11] MEDS: FOLIC ACID 1 MG TABLET (FP) PO SCH (09:18)
[2018-08-11] MEDS: PANTOPRAZOLE 40 MG TABLET (FP) PO SCH (09:18)
[2018-08-11] MEDS: RANOLAZINE E.R. 500 MG TABLET (FP) PO SCH ×2 (09:18→21:32)
[2018-08-11] MEDS: OMEGA-3 ACID ETHYL ESTERS (FATTY-ACIDS) 1 GM CAPSULE (FP) PO SCH ×2 (09:20→21:33)
--- NOTE | 2018-08-11 09:37 | PN ---
Progress Note (short form) - Note Progress Note: 58yo F s/p C2-T1 fusion, seen and examined at bedside. Pt was seen at bedside on the floor. Pt states that weakness in her hands is improved. Pt states that her pain is well controlled. Pt denies n/v, fever, chills. Pt states that she is tolerating PO and ambulated with PT yesterday. Last Vital Signs Temp Pulse Resp BP Pulse Ox 99.3 F 104 H 20 134/65 98 08/11/18 08:00 08/11/18 08:00 08/11/18 08:00 08/11/18 08:00 08/10/18 09:00 CBC, BMP 08/11/18 07:00 08/11/18 07:00 PE: Gen: A&O x3 Resp: breathing comfortably Neck: incisions are clean with no erythema or discharge. Posterior drain in place with serous drainage, removed at bedside. Ext: no edema Problem List - Problems (1) H/O cervical spine surgery Assessment/Plan: Plan -pt appears to be doing well, is cleared from neurosurgery for discharge to rehab -pt follow up with Dr. Emmanuel as outpatient in 2 weeks -dvt ppx -may advance to regular diet. Code(s): Z98.890 - OTHER SPECIFIED POSTPROCEDURAL STATES
--- NOTE | 2018-08-11 11:51 | DS ---
Physical Examination Vital Signs: Vital Signs Temperature 99.3 F 08/11/18 10:00 Pulse Rate 104 H 08/11/18 10:00 Respiratory Rate 20 08/11/18 10:00 Blood Pressure 134/65 08/11/18 10:00 O2 Sat by Pulse Oximetry (%) 98 08/10/18 09:00 Findings/Remarks: s/p C2-T1 fusion Constitutional: Yes: Well Nourished, No Distress, Calm Cardiovascular: Yes: Regular Rate and Rhythm Respiratory: Yes: Regular Gastrointestinal: Yes: Normal Bowel Sounds, Soft Musculoskeletal: Yes: WNL Extremities: Yes: WNL Edema: No Peripheral Pulses WNL: Yes Wound/Incision: Yes: Dressing Dry and Intact Neurological: Yes: Alert, Oriented Psychiatric: Yes: Alert, Oriented Labs: CBC, BMP 08/11/18 07:00 08/11/18 07:00 Discharge Summary Reason For Visit: CERVICAL SPONDYLOSIS & KYPHOSIS Current Active Problems Cervical spine arthritis with nerve pain (Acute) H/O cervical spine surgery (Acute) Leukocytosis (Acute) Polyuria (Acute) Weakness (Acute) Hospital Course: Laboratory Last Values WBC 11.7 K/mm3 (4.0-10.0) H 08/11/18 07:00 RBC 3.64 M/mm3 (3.60-5.2) 08/11/18 07:00 Hgb 10.4 GM/dL (10.7-15.3) L 08/11/18 07:00 Hct 30.6 % (32.4-45.2) L 08/11/18 07:00 MCV 84.0 fl (80-96) 08/11/18 07:00 MCH 28.7 pg (25.7-33.7) 08/11/18 07:00 MCHC 34.1 g/dl (32.0-36.0) 08/11/18 07:00 RDW 13.7 % (11.6-15.6) 08/11/18 07:00 Plt Count 256 K/MM3 (134-434) 08/11/18 07:00 MPV 8.7 fl (7.5-11.1) 08/11/18 07:00 Absolute Neuts (auto) 7.9 K/mm3 (1.5-8.0) 08/11/18 07:00 Neutrophils % 67.5 % (42.8-82.8) 08/11/18 07:00 Lymphocytes % 23.6 % (8-40) 08/11/18 07:00 Monocytes % 4.9 % (3.8-10.2) 08/11/18 07:00 Eosinophils % 3.4 % (0-4.5) D 08/11/18 07:00 Basophils % 0.6 % (0-2.0) 08/11/18 07:00 Nucleated RBC % 0 % (0-0) 08/11/18 07:00 PT with INR 12.30 SEC (9.7-13.0) 08/07/18 06:41 INR 1.04 (0.83-1.09) 08/07/18 06:41 PTT (Actin FS) 31.1 SECONDS (25.2-36.5) 08/07/18 06:41 Sodium 138 mmol/L (136-145) 08/11/18 07:00 Potassium 3.4 mmol/L (3.5-5.1) L 08/11/18 07:00 Chloride 98 mmol/L (98-107) 08/11/18 07:00 Carbon Dioxide 28 mmol/L (21-32) 08/11/18 07:00 Anion Gap 12 MMOL/L (8-16) 08/11/18 07:00 BUN 8 mg/dL (7-18) 08/11/18 07:00 Creatinine 0.6 mg/dL (0.55-1.3) 08/11/18 07:00 Creat Clearance w eGFR > 60 (>60) 08/11/18 07:00 POC Glucometer 245 UNITS (80-120) 08/11/18 06:10 Random Glucose 249 mg/dL (74-106) H 08/11/18 07:00 Calcium 8.3 mg/dL (8.5-10.1) L 08/11/18 07:00 Phosphorus 3.2 mg/dL (2.5-4.9) 08/11/18 07:00 Magnesium 2.1 mg/dL (1.8-2.4) 08/11/18 07:00 Total Bilirubin 0.5 mg/dL (0.2-1) 08/11/18 07:00 AST 13 U/L (15-37) L 08/11/18 07:00 ALT 12 U/L (13-61) L 08/11/18 07:00 Alkaline Phosphatase 68 U/L (45-117) 08/11/18 07:00 Total Protein 6.0 g/dl (6.4-8.2) L 08/11/18 07:00 Albumin 2.9 g/dl (3.4-5.0) L 08/11/18 07:00 Urine Color Ltyellow 08/08/18 22:11 Urine Appearance Clear 08/08/18 22:11 Urine pH 5.0 (5.0-8.0) 08/08/18 22:11 Ur Specific [place] 1.010 (1.010-1.035) 08/08/18 22:11 Urine Protein Negative (NEGATIVE) 08/08/18 22:11 Urine Glucose (UA) 2+ (NEGATIVE) H 08/08/18 22:11 Urine Ketones Trace (NEGATIVE) H 08/08/18 22:11 Urine Blood Negative (NEGATIVE) 08/08/18 22:11 Urine Nitrite Negative (NEGATIVE) 08/08/18 22:11 Urine Bilirubin Negative (<2.0 mg/dL) 08/08/18 22:11 Urine Urobilinogen Negative mg/dL (0.2-1.0) 08/08/18 22:11 Ur Leukocyte Esterase Trace (NEGATIVE) 08/08/18 22:11 Urine WBC (Auto) 16 /hpf (3-5) 08/08/18 22:11 Urine RBC (Auto) <1 /hpf (0-3) 08/08/18 22:11 Ur Epithelial Cells Rare /HPF (FEW) 08/08/18 22:11 Urine Bacteria Rare /hpf (NONE SEEN) 08/07/18 06:41 Hyaline Casts 9 /lpf 08/07/18 06:41 Urine Mucus Rare 08/08/18 22:11 Blood Type O POSITIVE 08/07/18 06:41 Antibody Screen Negative 08/07/18 06:41 Microbiology 08/08/18 22:11 Urine - Urine Clean Catch Urine Culture - Final Condition: Stable - Instructions Diet, Activity, Other Instructions: Post Operative Instructions Physical Activity Resume your normal everyday activity as tolerated. No heavy lifting or exercise until seen by your surgeon. You may walk unlimited amounts and climb stairs. You may resume driving the car when you feel safe and comfortable behind the wheel and you are no longer wearing your brace. Do not operate a vehicle while taking narcotic medication. Brace If you had neck surgery, wear surgical collar 23 hr/day. Remove to shower and eat only. Wound Care Keep your incision clean, dry and covered at all times. Apply an occlusive dressing (Saran wrap or Tegaderm) when showering to avoid getting your incision wet. Do not submerge incision or apply ointments or creams. The rossy will be removed in the office in 10-14 days post-op. Diet There are no dietary restrictions. Eat healthy, high-fiber foods. Drink 6-8 glasses of liquid each day. This will assist in keeping your bowels regular. Pain Management You may take Tylenol or acetaminophen. Any pain prescription medication ordered should be taken as prescribed for moderate to severe pain. Call Dr Rodriguez for any of the following: Severe pain not relieved by medication Fever of 101 or higher Excessive bleeding or drainage on dressing Inability to urinate Any chest pain or shortness of breath, seek Emergency Care. Call the office to confirm a post-operative appointment for 2-3 weeks post-op Gadiel Emmanuel MD [facility] [place] [address] Disposition: HOME - Home Medications Comprehensive Discharge Medication List: Ambulatory Orders Levothyroxine [Synthroid -] 50 mcg PO DAILY@0700 tablet 04/17/18 Rosuvastatin Calcium [Crestor] 40 mg PO DAILY 04/30/18 Clopidogrel Bisulfate [Plavix -] 75 mg PO DAILY #30 tablet 06/17/18 FENTANYL 12mcg PATCH [DURAGESIC 12mcg PATCH -] 1 each TD Q72H 08/06/18 Icosapent Ethyl [Vascepa] 1 gm PO TID 08/06/18 Insulin Degludec [Tresiba Flextouch U-100] 60 unit SQ HS 08/06/18 Insulin Pump Syringe, 1.8 ml [Paradigm] 1 each SQ DAILY 08/06/18 Oxycodone HCl 15 mg PO PRN PRN 08/06/18 Pregabalin [Lyrica] 100 mg PO TID 08/06/18 Ranolazine [Ranexa] 500 mg PO BID 08/06/18 Acetaminophen [Tylenol .Regular Strength -] 650 mg PO Q4H PRN tablet 08/11/18 Docusate Sodium [Colace -] 100 mg PO TID #90 capsule 08/11/18 Ferrous Sulfate [Feosol] 325 mg PO DAILY@0800 #30 ud 08/11/18 Folic Acid - 1 mg PO DAILY #30 tablet 08/11/18 Pantoprazole Sodium [Protonix -] 40 mg PO DAILY #30 tablet.ec 08/11/18 Sennosides [Senna -] 2 tab PO HS #60 tablet 08/11/18
[2018-08-11] MEDS ORDERED: ROSUVASTATIN CA 10 MG TABLET (FP) ONE (21:19)
[2018-08-11] MEDS: ROSUVASTATIN CA 20 MG TABLET (FP) PO SCH (21:32)
[2018-08-11] MEDS: SENNOSIDES 8.6MG TABLET (FP) PO SCH (21:32)
[2018-08-12 03:40] VITALS: TEMP 98.7
[2018-08-12] MEDS: oxyCODONE HCL 5 MG TABLET PO PRN ×2 (04:24→10:13)
[2018-08-12] MEDS: ACETAMINOPHEN 325 MG TABLET (FP) PO PRN ×2 (04:26→10:20)
[2018-08-12] MEDS ORDERED: INSULIN (NOVOLOG) ASPART 100 UNITS/ML 10ML VIAL ONE (05:53)
[2018-08-12] MEDS: PREGABALIN 100 MG CAPSULE PO SCH (06:13)
[2018-08-12] MEDS: HEPARIN NA (PORCINE) 5,000 UNITS/ML 1ML VIAL SQ SCH (06:13)
[2018-08-12] MEDS: DOCUSATE SODIUM 100 MG CAPSULE (FP) PO SCH (06:13)
[2018-08-12] MEDS: INSULIN (LEVEMIR) 100 UNITS/ML UNITS SQ SCH (06:13)
[2018-08-12] MEDS: INSULIN SLIDING SCALE (NOVOLOG) 1 VIAL SQ SCH ×2 (06:14→11:48)
[2018-08-12] MEDS: LEVOTHYROXINE NA 50 MCG TABLET (FP) PO SCH (06:14)
[2018-08-12] MEDS: FOLIC ACID 1 MG TABLET (FP) PO SCH (09:22)
[2018-08-12] MEDS: PANTOPRAZOLE 40 MG TABLET (FP) PO SCH (09:22)
[2018-08-12] MEDS: FERROUS SO4 325 MG TABLET (FP) PO SCH (09:22)
[2018-08-12] MEDS: OMEGA-3 ACID ETHYL ESTERS (FATTY-ACIDS) 1 GM CAPSULE (FP) PO SCH (09:22)
[2018-08-12] MEDS: RANOLAZINE E.R. 500 MG TABLET (FP) PO SCH (09:22)
[2018-08-12] MEDS ORDERED: POTASSIUM CHLORIDE TABS 10 MEQ TABLET.ER (FP) PO SCH (10:00)
[2018-08-12 10:54] VITALS: BP 137/66; PULSE 102
[2018-08-12] MEDS ORDERED: POTASSIUM CHLORIDE TABS 10 MEQ TABLET.ER (FP) PO ONE (11:13)
== END 2018-08-12 12:30 | DRG 454 ==
LOC: JSAMEDAYSX 06:19 → EDSTATUS 09:00 → JICU 18:49 → J6S 08-10 16:59
PROVIDERS: ADMIT Neurological Surgery; ATTEND Family Medicine
PROC: 0RG20A0 Fusion of 2 or more Cervical Vertebral Joints with Interbody Fusion Device, Anterior Approach, Anterior Column, Open Approach (ICD-10-PCS; principal; 2018-08-07 08:00)
PROC: 0RG4071 Fusion of Cervicothoracic Vertebral Joint with Autologous Tissue Substitute, Posterior Approach, Posterior Column, Open Approach (ICD-10-PCS; 2018-08-07 08:00)
DX: M47.812 Spondylosis without myelopathy or radiculopathy, cervical region (principal); R71.0 Precipitous drop in hematocrit; M40.202 Unspecified kyphosis, cervical region; R20.0 Anesthesia of skin; R53.1 Weakness; R35.8 Other polyuria; E66.01 Morbid (severe) obesity due to excess calories; E10.9 Type 1 diabetes mellitus without complications; D72.829 Elevated white blood cell count, unspecified; Z68.38 Body mass index [BMI] 38.0-38.9, adult; K21.9 Gastro-esophageal reflux disease without esophagitis; E03.9 Hypothyroidism, unspecified; Z79.4 Long term (current) use of insulin
CPT/HCPCS: 36415; 71045-TC-FY; 72125-TC; 76000-TC-FY; 80048; 80053; 81003; 81015; 82962; 83735; 84100; 85025; 85027; 85610; 85730; 86850; 86900; 86901; 87086; 94760; 97116-GP; 97162-GP; J1644

== ENCOUNTER 2018-09-30 16:10 | Inpatient (IN) | payer OTHER ==
[2018-09-30] MEDS ORDERED: DEXTROSE 50%-WATER 25 GM/50 ML DISP.SYRIN ONE ×3 (16:26→18:04)
[2018-09-30] MEDS ORDERED: GlUCAGON HUMAN RECOMBINANT 1 MG/VIAL ONE (16:30)
--- NOTE | 2018-09-30 16:35 | PDOC ---
Attending Attestation - [facility] HPI: 09/30/18 17:04 The patient is a 58 year old female, with a significant PMH of who presents to the emergency department with aide via ems from home for evaluation of AMS and low glucose. The patients aide states she was asking the patient about a UPS delivery today and noticed the patient to be slurring her speech and less responsive than usual. The health aide states the patients left side was shaking and eyes all over. As per ems, the patients blood sugar was 70 on arrival, was given dextrose which improved the patients mentation. Upon arrival , the patients glucose was 29. The patient was given dextrose which improved her mentation. The patient denies chest pain, shortness of breath, headache and dizziness. Denies fever, chills, nausea, vomit, diarrhea and constipation. Denies dysuria, frequency, urgency and hematuria. Allergies: NKA - Physicial Exam PE: 09/30/18 17:04 Constitutional: Awake, alert, oriented. No acute distress. Head: Normocephalic. Atraumatic Eyes: PERRL. EOMI. Conjunctivae are not pale. ENT: (+) edentulous ,Mucous membranes are moist and intact. Posterior pharynx without exudates or erythema. Uvula midline. Neck: (+) well healing scar to anterior cervical region, No collar in place.Supple. Full ROM. No lymphadenopathy. Cardiovascular: Regular rate. Regular rhythm. S1, S2 regular. Distal pulses are 2+ and symmetric. Pulmonary/Chest: No evidence of respiratory distress. Clear to auscultation bilaterally No wheezing, rales or rhonchi. Abdominal: Soft and non-distended. There is no tenderness. No rebound, guarding or rigidity. No organomegaly. No palpable masses. Good bowel sounds. Back: No CVA tenderness. Musculoskeletal: No edema. No cyanosis. No clubbing. Full range of motion in all extremities. Nocalf tenderness. Radial/pedal pulses are intact and 2+ bilaterally Skin: (+) insulin pump removed. Skin is warm and dry. No petechiae. No purpura. Neurological: (+) Upon arrival minima responsive, says name, not following commands, wandering eyes. After dextrose patient is Conversive, no slurred speech. Left extremities with 5/5 MS, Right extremities weaker than left but baseline. Alert and oriented to person, place, and time. Cranial nerves II-XII are grossly intact. Normal speech. Strength is grossly symmetric. No sensory deficits. Psychiatric: Good eye contact. Normal interaction, affect and behavior. - Medical Decision Making 09/30/18 17:08 Documentation prepared by Deborah Castro, acting as medical front desk coordinator for Terrie Lindquist DO <Deborah Castro - Last Filed: 09/30/18 17:04> - Resident Resident Name: Ganesh Choi - ED Attending Attestation I have performed the following: I have examined & evaluated the patient, The case was reviewed & discussed with the resident, I agree w/resident's findings & plan, Exceptions are as noted - Critical Care Time Total Critical Care Time: 35 Critical Care Statement: The care of this patient involved high complexity decision making to prevent further life threatening deterioration of the patient 's condition and/or to evaluate & treat vital organ system(s) failure or risk of failure. - Medical Decision Making 09/30/18 16:35 I, Dr. Terrie Lindquist DO, attest that this document has been prepared under my direction and personally reviewed by me in its entirety. I further attest, that it accurately reflects all work, treatment, procedures and medical decision -making performed by me. 09/30/18 16:40 a/p: 58yo female biba from home with her aide for eval of unresponsiveness and low blood glucose -glucose was 70 at home, medics gave sugar and symptoms improved -pt arrives minimally responsive, wandering eyes, not following commands, can state her name -glucose upon arrival was 29-insulin pump was still in place and on -IV access obtained and pt given D50-pt awoke-at baseline MS and baseline neuro -hx of cva in the past- R sided residual weakness from prior cva- no new symptoms currently -will send labs, cultures, ua, ucx, cxr, ekg -will monitor and reassess 09/30/18 18:27 repeat glucose was 64, another amp d50 given and will start on a d5 gtt will admit for repeated hypoglycemia cxr clear head ct without acute findings 09/30/18 19:51 case discussed with TORI Logan who accepts pt to service under Dr. Blevins <Terrie Lindquist - Last Filed: 09/30/18 19:52> *DC/Admit/Observation/Transfer - Discharge Dispostion Decision to Admit order: Yes <Terrie Lindquist - Last Filed: 09/30/18 19:52> Diagnosis at time of Disposition: Hypoglycemia Diabetes Qualifiers: Diabetes mellitus type: type 2 Diabetes mellitus shelter insulin use: with termite control technician use Diabetes mellitus complication status: with unspecified complications Qualified Code(s): E11.8 - Type 2 diabetes mellitus with unspecified complications - Discharge Dispostion Condition at time of disposition: Guarded Heart Score/ECG Review - ECG Intrepretation Comment:: 09/30/18 17:23 sinus at 83, nl axis, nl interval, q waves anteriorly that are age indeterminate , no acute st/t wave findings <Terrie Lindquist - Last Filed: 09/30/18 19:52>
[2018-09-30] MEDS ORDERED: DEXTROSE 50%-WATER - 25 GM/50 ML VIAL IVPUSH ONE ×2 (16:37→18:11)
[2018-09-30] MEDS ORDERED: SODIUM CHLORIDE 0.9% 1000 ML INFUS.BAG IV ONE (16:38)
--- NOTE | 2018-09-30 16:41 | PDOC ---
History of Present Illness - General Chief Complaint: Altered Mental Status Stated Complaint: LOW BLOOD SUGAR Time Seen by Provider: 09/30/18 16:24 - History of Present Illness Initial Comments: The patient is a 58F w/ a history of DM on a pump who presents for evaluation of AMS this afternoon at approx 1545. The pt's aid then called EMS who performed a finger stick which as in the 70 and gave oral glucose. Upon arrival the patient was aphasic, BGM was found to be in the 20s. At baseline, the aid reports that the pt is oriented x3 and interactive. S/p dextrose, pt became verbal, oriented, and interactive. She denies any pain at this time Reports scheduled f/u tomorrow w/ wound care here for b/l foot wounds whose dressings were changes earlier today. 09/30/18 16:55 Past History - Past Medical History Allergies/Adverse Reactions: Allergies Allergy/AdvReac Type Severity Reaction Status Date / Time No Known Allergies Allergy Verified 09/30/18 16:22 Home Medications: Ambulatory Orders Levothyroxine [Synthroid -] 50 mcg PO DAILY@0700 tablet 04/17/18 Rosuvastatin Calcium [Crestor] 40 mg PO DAILY 04/30/18 Clopidogrel Bisulfate [Plavix -] 75 mg PO DAILY #30 tablet 06/17/18 FENTANYL 12mcg PATCH [DURAGESIC 12mcg PATCH -] 1 each TD Q72H 08/06/18 Icosapent Ethyl [Vascepa] 1 gm PO TID 08/06/18 Insulin Degludec [Tresiba Flextouch U-100] 60 unit SQ HS 08/06/18 Insulin Pump Syringe, 1.8 ml [Paradigm] 1 each SQ DAILY 08/06/18 Oxycodone HCl 15 mg PO PRN PRN 08/06/18 Pregabalin [Lyrica] 100 mg PO TID 08/06/18 Ranolazine [Ranexa] 500 mg PO BID 08/06/18 Acetaminophen [Tylenol .Regular Strength -] 650 mg PO Q4H PRN tablet 08/11/18 Docusate Sodium [Colace -] 100 mg PO TID #90 capsule 08/11/18 Ferrous Sulfate [Feosol] 325 mg PO DAILY@0800 #30 ud 08/11/18 Folic Acid - 1 mg PO DAILY #30 tablet 08/11/18 Pantoprazole Sodium [Protonix -] 40 mg PO DAILY #30 tablet.ec 08/11/18 Sennosides [Senna -] 2 tab PO HS #60 tablet 08/11/18 Collagenase Clostridium Hist. [Santyl] 90 gm TP DAILY 30 Days #90 grams Anemia: No Asthma: Yes (no recent attack) Cancer: No Cardiac Disorders: No CVA: Yes COPD: No CHF: No Dementia: No Diabetes: Yes GI Disorders: No Disorders: No HTN: Yes Hypercholesterolemia: Yes Liver Disease: No Seizures: Yes (diabetic seizures, none recently) Thyroid Disease: Yes - Surgical History Abdominal Surgery: No Appendectomy: No Cardiac Surgery: No Cholecystectomy: No Lung Surgery: No Neurologic Surgery: No Orthopedic Surgery: (amelia carpal tunnel) - Immunization History Immunization Up to Date: Yes - Suicide/Smoking/Psychosocial Hx Smoking History: Never smoked Have you smoked in the past 12 months: No If you are a former smoker, when did you quit?: 15yrs Hx Alcohol Use: No Drug/Substance Use Hx: No Substance Use Type: None Hx Substance Use Treatment: No Review of Systems - Review of Systems Able to Perform ROS?: Yes Comments:: GENERAL/CONSTITUTIONAL: No fever or chills HEAD, EYES, EARS, NOSE AND THROAT: No change in vision. No ear pain or discharge. No sore throat CARDIOVASCULAR: No chest pain or shortness of breath RESPIRATORY: Denies cough, hemoptysis GASTROINTESTINAL: No nausea, vomiting, diarrhea or constipation GENITOURINARY: No dysuria, frequency, or change in urination MUSCULOSKELETAL: No joint or muscle swelling or pain. No neck or back pain SKIN: +B/l chronic foot wound NEUROLOGIC: No headache, vertigo, or change in strength/sensation ENDOCRINE: No increased thirst. No abnormal weight change HEMATOLOGIC/LYMPHATIC: No anemia, easy bleeding, or history of blood clots ALLERGIC/IMMUNOLOGIC: No hives or skin allergy 09/30/18 16:57 Is the patient limited Yakut proficient: No *Physical Exam - Vital Signs Last Vital Signs Temp Pulse Resp BP Pulse Ox 97.9 F 91 H 18 100/59 L 09/30/18 16:22 09/30/18 16:22 09/30/18 16:22 09/30/18 16:22 - Physical Exam Comments: GENERAL: initially obtunded; however s/p D50: Awake, alert, and fully oriented, in no acute distress HEAD: No signs of trauma, normocephalic, atraumatic EYES: PERRLA, EOMI, sclera anicteric, conjunctiva clear ENT: Hearing grossly normal, nares patent, oropharynx clear without exudates. Moist mucosa LUNGS: No distress, speaks full sentences, clear to auscultation bilaterally HEART: Regular rate and rhythm, normal S1 and S2, no murmurs appreciated, peripheral pulses normal and equal bilaterally ABDOMEN: Soft, protuberant, nontender, normoactive bowel sounds. No guarding, no rebound EXTREMITIES : BLE 1+ swelling to distal ramos; b/l chronic foot wounds w/ wound care dressings in place NEUROLOGICAL: Cranial nerves II through XII grossly intact. Normal speech, normal gait, no focal sensorimotor deficits SKIN: Warm, Dry 09/30/18 16:57 Moderate Sedation - Procedure Monitoring Vital Signs: Procedure Monitoring Vital Signs Temperature 97.9 F 09/30/18 16:22 Pulse Rate 91 H 09/30/18 16:22 Respiratory Rate 18 09/30/18 16:22 Blood Pressure 100/59 L 09/30/18 16:22 O2 Sat by Pulse Oximetry (%) ED Treatment Course - LABORATORY CBC & Chemistry Diagram: 09/30/18 16:41 09/30/18 16:41 Medical Decision Making - Medical Decision Making The patient is a 58F w/ a history of DM (on pump/no PO meds) who presented for evaluation of AMS and was found to be hypoglycemic to the 20s. ED Course CMP, CBC, UA BGM Dextrose CT head, CXR ECG Patient's mentation improved s/p initial amp of D50 No anemia No leukocytosis Lactate 1.2 09/30/18 17:55 Repeat BGM 60s -Will give additional amp of D50 -D5 1/2NS @ 42 09/30/18 19:01 CT head w/o acute pathology 09/30/18 19:32 UA w/ 2+ LE, neg nitrites, micro pending; denies dysuria 09/30/18 19:35 U WBC 22 -Rocephin 1g IV once for UTI Dispo: admit 09/30/18 19:57 *DC/Admit/Observation/Transfer Diagnosis at time of Disposition: Hypoglycemia Diabetes Qualifiers: Diabetes mellitus type: type 2 Diabetes mellitus filler leaf cutter long insulin use: with filler leaf cutter long use Diabetes mellitus complication status: with unspecified complications Qualified Code(s): E11.8 - Type 2 diabetes mellitus with unspecified complications - Discharge Dispostion Condition at time of disposition: Guarded Decision to Admit order: Yes - Referrals - Patient Instructions - Post Discharge Activity
[2018-09-30 17:17] LABS: BASO % 0.5 % (0-2.0); EOS % 3.6 % (0-4.5); HEMATOCRIT 38.1 % (32.4-45.2); HEMOGLOBIN 12.5 GM/dL (10.7-15.3); MCH 28.9 pg (25.7-33.7); MCHC 32.7 g/dl (32.0-36.0); MEAN CELL VOLUME 88.3 fl (80-96); MEAN PLT VOLUME 8.3 fl (7.5-11.1); MONO % 5.9 % (3.8-10.2); PLATELET COUNT 251 K/MM3 (134-434); RBC 4.32 M/mm3 (3.60-5.2); RDW 14.1 % (11.6-15.6); WHITE BLOOD COUNT 9.3 K/mm3 (4.0-10.0)
[2018-09-30 17:28] LABS: VENOUS PC02 54.2 mmHg (38-52); VENOUS PH 7.35 (7.32-7.42); VENOUS PO2 30.4 mmHg (28-48)
[2018-09-30 17:54] LABS: ALBUMIN 3.6 g/dl (3.4-5.0); ALK PHOS 86 U/L (45-117); ANION GAP 8 MMOL/L (8-16); BILIRUBIN,TOTAL 0.2 mg/dL (0.2-1); BLOOD UREA NITROGEN 11 mg/dL (7-18); CALCIUM 8.7 mg/dL (8.5-10.1); CHLORIDE 102 mmol/L (98-107); CO2 29 mmol/L (21-32); CREATININE 0.7 mg/dL (0.55-1.3); GLUCOSE,RANDOM 189 mg/dL (74-106); MAGNESIUM 2.1 mg/dL (1.8-2.4); POTASSIUM 4.2 mmol/L (3.5-5.1); SGOT/AST 17 U/L (15-37); SGPT/ALT 18 U/L (13-61); SODIUM 139 mmol/L (136-145); TOT PROT 6.7 g/dl (6.4-8.2)
[2018-09-30] MEDS: DEXTROSE 5%-0.45% SALINE 1,000 ML IV SCH (18:29)
[2018-09-30 19:12] LABS: URINE APPEARANCE CLEAR; URINE BILIRUBIN NEGATIVE (<2.0 mg/dL); URINE COLOR LTYELLOW; URINE GLUCOSE (UA) 2+ (NEGATIVE); URINE KETONE NEGATIVE (NEGATIVE); URINE LEUK ESTERASE 2+ (NEGATIVE); URINE NITRITE NEGATIVE (NEGATIVE); URINE PROTEIN NEGATIVE (NEGATIVE)
[2018-09-30 19:49] LABS: EPI CELLS RARE /HPF (FEW)
[2018-09-30] MEDS ORDERED: CEFTRIAXONE 1,000 MG in DEXTROSE 5%-WATER - 50 ML IVPB ONE (20:10)
--- NOTE | 2018-09-30 21:58 | HP ---
Admitting History and Physical - Primary Care Physician PCP: Dimitry Blevins - Admission Chief Complaint: Hypoglycemia, Lethargy History of Present Illness: This is a 58 y/o woman from home with a PMHx of : IDDM (insulin pump), Seizures (DM, no meds), HTN, HLD, Asthma, CVA/TIA (no residual), Chronic Cervical Pain s/ p spinal fusion (Soft collar, use). Who presents to the ED with hypoglycemia. Patient was found by her PHOTOGRAPHIC PROCESS ATTENDANT unresponsive, EMS arrived FS 70. D50 given in the field. On arrival to the ED BGM 29, D50 given and the ED attending turned off the patient's insulin pump. Patient is now alert, awake and responsive. Patient has vague complaints regarding her discomfort sitting on the stretcher. Patient denies fever, chills, cough, SOB, dizziness, CP, palpitations, AP, N/V/D, constipation, dysuria. History Source: Patient Limitations to Obtaining History: No Limitations - Past Medical History HOME HEALTH CARE PHYSICIAN: Yes: CVA, Seizure (DM related), TIA Cardiovascular: Yes: HTN, Hyperlipdemia Pulmonary: Yes: Asthma Endocrine: Yes: Diabetes Mellitus - Smoking History Smoking history: Never smoked Have you smoked in the past 12 months: No If you are a former smoker, when did you quit?: 15yrs - Alcohol/Substance Use Hx Alcohol Use: No History of Substance Use: reports: None - Social History Usual Living Arrangement: Yes: Alone ADL: Support Services (PHOTOGRAPHIC PROCESS ATTENDANT) History of Recent Travel: No Home Medications - Allergies Allergies/Adverse Reactions: Allergies Allergy/AdvReac Type Severity Reaction Status Date / Time No Known Allergies Allergy Verified 09/30/18 16:22 - Home Medications Home Medications: Ambulatory Orders Levothyroxine [Synthroid -] 50 mcg PO DAILY@0700 tablet 04/17/18 Rosuvastatin Calcium [Crestor] 40 mg PO DAILY 04/30/18 Clopidogrel Bisulfate [Plavix -] 75 mg PO DAILY #30 tablet 06/17/18 FENTANYL 12mcg PATCH [DURAGESIC 12mcg PATCH -] 1 each TD Q72H 08/06/18 Icosapent Ethyl [Vascepa] 1 gm PO TID 08/06/18 Insulin Degludec [Tresiba Flextouch U-100] 60 unit SQ HS 08/06/18 Insulin Pump Syringe, 1.8 ml [Paradigm] 1 each SQ DAILY 08/06/18 Oxycodone HCl 15 mg PO PRN PRN 08/06/18 Pregabalin [Lyrica] 100 mg PO TID 08/06/18 Ranolazine [Ranexa] 500 mg PO BID 08/06/18 Acetaminophen [Tylenol .Regular Strength -] 650 mg PO Q4H PRN tablet 08/11/18 Docusate Sodium [Colace -] 100 mg PO TID #90 capsule 08/11/18 Ferrous Sulfate [Feosol] 325 mg PO DAILY@0800 #30 ud 08/11/18 Folic Acid - 1 mg PO DAILY #30 tablet 08/11/18 Pantoprazole Sodium [Protonix -] 40 mg PO DAILY #30 tablet.ec 08/11/18 Sennosides [Senna -] 2 tab PO HS #60 tablet 08/11/18 Collagenase Clostridium Hist. [Santyl] 90 gm TP DAILY 30 Days #90 grams Family Disease History - Family Disease History Family Disease History: Heart Disease: Father (Thyroid, HTN), Sister (Thyroid, HTN), CA: Father, Sister Review of Systems - Review of Systems Constitutional: reports: Lethargy Eyes: reports: No Symptoms HENT: reports: No Symptoms Neck: reports: No Symptoms Cardiovascular: reports: No Symptoms Respiratory: reports: No Symptoms Gastrointestinal: reports: No Symptoms Genitourinary: reports: No Symptoms Breasts: reports: No Symptoms Reported Musculoskeletal: reports: No Symptoms Integumentary: reports: No Symptoms Neurological: reports: Other (unresponsive) Endocrine: reports: No Symptoms Hematology/Lymphatic: reports: No Symptoms Psychiatric: reports: No Symptoms Physical Examination Vital Signs: Vital Signs Temperature 97.9 F 09/30/18 16:22 Pulse Rate 91 H 09/30/18 18:58 Respiratory Rate 18 09/30/18 18:58 Blood Pressure 120/75 09/30/18 18:58 O2 Sat by Pulse Oximetry (%) 98 09/30/18 18:58 Constitutional: Yes: No Distress, Calm Eyes: Yes: WNL, Conjunctiva Clear, EOM Intact, PERRL HENT: Yes: WNL, Atraumatic, Normocephalic Neck: Yes: WNL, Supple, Trachea Midline Cardiovascular: Yes: WNL, Regular Rate and Rhythm, S1, S2 Respiratory: Yes: WNL, Regular, CTA Bilaterally Gastrointestinal: Yes: WNL, Normal Bowel Sounds, Soft, Abdomen, Obese Renal/: Yes: WNL Breast(s): Yes: WNL Musculoskeletal: Yes: WNL Edema: No Peripheral Pulses WNL: Yes Integumentary: Yes: WNL Neurological: Yes: WNL, Alert, Oriented, Cran Nerves II-XII Intact ...Motor Strength: WNL Psychiatric: Yes: WNL, Alert, Oriented Labs: CBC, BMP 09/30/18 16:41 09/30/18 16:41 Current Medications Generic Name Dose Route Start Last Admin Trade Name Freq PRN Reason Stop Dose Admin Acetaminophen 650 mg 09/30/18 22:02 10/01/18 01:14 Tylenol - PO 650 mg Q4H PRN Administration FEVER Clopidogrel Bisulfate 75 mg 10/01/18 10:00 Plavix - PO DAILY [facility] Collagenase 1 applic 10/01/18 10:00 Santyl - TP DAILY [facility] Protocol Docusate Sodium 100 mg 10/01/18 06:00 Colace - PO TID [facility] Fentanyl 1 patch 10/01/18 10:00 Duragesic 12mcg Patch - TD Q72H [facility] Ferrous Sulfate 325 mg 10/01/18 08:00 Feosol - PO DAILY@0800 [facility] Folic Acid 1 mg 10/01/18 10:00 Folic Acid - PO DAILY [facility] Dextrose/Sodium Chloride 1,000 mls @ 42 mls/hr 09/30/18 18:15 09/30/18 18:29 D5-1/2ns - IV 42 mls/hr ASDIR [facility] Administration Levothyroxine Sodium 50 mcg 10/01/18 07:00 Synthroid - PO DAILY@0700 [facility] Miscellaneous 1 each 10/01/18 10:00 Duragesic Patch Waste TD PRN PRN PATCH REMOVAL Non-Formulary Medication 1 gm 10/01/18 06:00 Icosapent Ethyl [Vascepa] PO TID [facility] Pantoprazole Sodium 40 mg 10/01/18 10:00 Protonix - PO DAILY [facility] Pregabalin 100 mg 10/01/18 06:00 Lyrica - PO TID [facility] Ranolazine 500 mg 10/01/18 10:00 Ranexa - PO BID [facility] Rosuvastatin Calcium 40 mg 10/01/18 22:00 Crestor - PO HS JO Senna 2 tab 10/01/18 22:00 Senna - PO HS JO Imaging - Results Chest X-ray: Report Reviewed (no acute pathology), Image Reviewed Cat Scan: Report Reviewed (no acute intracranial pathology), Image Reviewed Problem List - Problems (1) Hypoglycemia Code(s): E16.2 - HYPOGLYCEMIA, UNSPECIFIED (2) Diabetes Code(s): E11.9 - TYPE 2 DIABETES MELLITUS WITHOUT COMPLICATIONS Qualifiers: Diabetes mellitus type: type 2 Diabetes mellitus intermediate card tender insulin use: with halfway use Diabetes mellitus complication status: with unspecified complications Qualified Code(s): E11.8 - Type 2 diabetes mellitus with unspecified complications; Z79.4 - intermediate card tender (current) use of insulin (3) HLD (hyperlipidemia) Code(s): E78.5 - HYPERLIPIDEMIA, UNSPECIFIED (4) HTN (hypertension) Code(s): I10 - ESSENTIAL (PRIMARY) HYPERTENSION (5) Asthma Code(s): J45.909 - UNSPECIFIED ASTHMA, UNCOMPLICATED (6) TIA (transient ischemic attack) Code(s): G45.9 - TRANSIENT CEREBRAL ISCHEMIC ATTACK, UNSPECIFIED (7) Hypothyroidism Code(s): E03.9 - HYPOTHYROIDISM, UNSPECIFIED Assessment/Plan This is a 58 y/o woman with a PMHx of: IDDM (on Insulin Pump), Seizures (DM), HTN, HLD, CVA/TIA (no residual), Asthma. Admitted to Telemetry for Hypoglycemia , Lethargy for further evaluation of their emergent condition Problems: Hypoglycemia Hypertension Hyperlipidemia Seizures (secondary to DM) Asthma History of CVA/TIA Plan: Endocrinology: Continue cardiac monitoring Seizure Precautions BGMs Q3H until glucose> 80, then AC/HS Continue D51/2NS Appreciate Endocrinology consult Hold Insulin Pump Monitor BMP TSH in am Continue Levothyroxine Diabetic Diet RD consult Cardiovascular: stable Monitor BP Monitor renal function Low Na Diet Continue home meds Pulmonary: stable No acute flare Continue home meds Neurology: hx CVA/TIA Continue home meds FEN: PO fluids as tolerated Replete lytes prn Low Na, Diabetic Diet DVT ppx OOB SCDs Continue Plavix Code Status: Full Code Dispo: Requires Inpatient Care Visit type - Emergency Visit Emergency Visit: Yes ED Registration Date: 09/30/18 Care time: The patient presented to the Emergency Department on the above date and was hospitalized for further evaluation of their emergent condition. - New Patient This patient is new to me today: Yes Date on this admission: 09/30/18 - Critical Care Critical Care patient: No
[2018-09-30] MEDS ORDERED: CEFTRIAXONE 1 GM/50 ML BAG ONE (23:14)
[2018-10-01] MEDS ORDERED: ACETAMINOPHEN 325 MG TABLET (FP) ONE (01:03)
[2018-10-01] MEDS: ACETAMINOPHEN 325 MG TABLET (FP) PO PRN ×3 (01:14→21:25)
[2018-10-01 06:16] LABS: BASO % 0.6 % (0-2.0); EOS % 2.7 % (0-4.5); HEMATOCRIT 38.1 % (32.4-45.2); HEMOGLOBIN 12.7 GM/dL (10.7-15.3); LYMPH % 28.6 % (8-40); MCHC 33.3 g/dl (32.0-36.0); MEAN CELL VOLUME 87.2 fl (80-96); MEAN PLT VOLUME 8.4 fl (7.5-11.1); MONO % 6.1 % (3.8-10.2); PLATELET COUNT 271 K/MM3 (134-434); RBC 4.37 M/mm3 (3.60-5.2); RDW 14.1 % (11.6-15.6); WHITE BLOOD COUNT 9.3 K/mm3 (4.0-10.0)
[2018-10-01 06:35] LABS: ANION GAP 7 MMOL/L (8-16); BLOOD UREA NITROGEN 11 mg/dL (7-18); CALCIUM 8.9 mg/dL (8.5-10.1); CHLORIDE 102 mmol/L (98-107); CO2 31 mmol/L (21-32); CREATININE 0.8 mg/dL (0.55-1.3); GLUCOSE,RANDOM 249 mg/dL (74-106); POTASSIUM 4.4 mmol/L (3.5-5.1); SODIUM 140 mmol/L (136-145)
[2018-10-01] MEDS ORDERED: LEVOTHYROXINE NA 25 MCG TABLET (FP) ONE (06:39)
[2018-10-01] MEDS ORDERED: PREGABALIN 100 MG CAPSULE ONE ×2 (06:39→13:08)
[2018-10-01] MEDS ORDERED: DOCUSATE SODIUM 100 MG CAPSULE (FP) PO ONE (06:40)
[2018-10-01] MEDS: DOCUSATE SODIUM 100 MG CAPSULE (FP) PO SCH ×3 (06:55→21:24)
[2018-10-01] MEDS: PREGABALIN 100 MG CAPSULE PO SCH ×3 (06:55→21:24)
[2018-10-01] MEDS: LEVOTHYROXINE NA 50 MCG TABLET (FP) PO SCH (06:55)
[2018-10-01] MEDS: FERROUS SO4 325 MG TABLET (FP) PO SCH (09:05)
[2018-10-01] MEDS ORDERED: fentaNYL 12mcg/hr PATCH.TD72 TD SCH (10:00)
[2018-10-01] MEDS ORDERED: FENTANYL PATCH WASTE TD PRN (10:00)
[2018-10-01] MEDS: FOLIC ACID 1 MG TABLET (FP) PO SCH (11:05)
[2018-10-01] MEDS: CLOPIDOGREL BISULFATE 75 MG TABLET (FP) PO SCH (11:05)
[2018-10-01] MEDS: PANTOPRAZOLE 40 MG TABLET (FP) PO SCH (11:05)
[2018-10-01] MEDS: RANOLAZINE E.R. 500 MG TABLET (FP) PO SCH ×2 (11:06→21:24)
--- NOTE | 2018-10-01 12:22 | EKG ---
Test Reason : Blood Pressure : / mmHG Vent. Rate : 083 BPM Atrial Rate : 083 BPM P-R Int : 168 ms QRS Dur : 092 ms QT Int : 410 ms P-R-T Axes : 042 087 050 degrees QTc Int : 481 ms NORMAL SINUS RHYTHM ANTERIOR INFARCT (CITED ON OR BEFORE 14-APR-2018) ABNORMAL ECG WHEN COMPARED WITH ECG OF 15-JUN-2018 15:41, NO SIGNIFICANT CHANGE WAS FOUND Confirmed by KENY BOLAÑOS, GAYATRI ([id number]) on 10/01/2018 12:22:36 PM Referred By: Confirmed By:GAYATRI BUSTILLO MD
--- NOTE | 2018-10-01 13:02 | PN ---
Progress Note, Physician Chief Complaint: patient seen and examined awake alert oriented bgm is bettter stop insulin - Current Medication List Current Medications: Active Medications Acetaminophen (Tylenol -) 650 mg PO Q4H PRN PRN Reason: FEVER Last Admin: 10/01/18 01:14 Dose: 650 mg Clopidogrel Bisulfate (Plavix -) 75 mg PO DAILY [facility] Collagenase (Santyl -) 1 applic TP DAILY [facility]; Protocol Docusate Sodium (Colace -) 100 mg PO TID [facility] Last Admin: 10/01/18 06:55 Dose: Not Given Fentanyl (Duragesic 12mcg Patch -) 1 patch TD Q72H [facility] Ferrous Sulfate (Feosol -) 325 mg PO DAILY@0800 [facility] Folic Acid (Folic Acid -) 1 mg PO DAILY [facility] Dextrose/Sodium Chloride (D5-1/2ns -) 1,000 mls @ 42 mls/hr IV ASDIR [facility] Last Admin: 09/30/18 18:29 Dose: 42 mls/hr Levothyroxine Sodium (Synthroid -) 50 mcg PO DAILY@0700 [facility] Last Admin: 10/01/18 06:55 Dose: 50 mcg Miscellaneous (Duragesic Patch Waste) 1 each TD PRN PRN PRN Reason: PATCH REMOVAL Non-Formulary Medication (Icosapent Ethyl [Vascepa]) 1 gm PO TID [facility] Pantoprazole Sodium (Protonix -) 40 mg PO DAILY [facility] Pregabalin (Lyrica -) 100 mg PO TID [facility] Last Admin: 10/01/18 06:55 Dose: 100 mg Ranolazine (Ranexa -) 500 mg PO BID [facility] Rosuvastatin Calcium (Crestor -) 40 mg PO HS [facility] Senna (Senna -) 2 tab PO [facility] - Objective Vital Signs: Vital Signs Temperature 98.2 F 10/01/18 10:25 Pulse Rate 84 10/01/18 10:25 Respiratory Rate 18 10/01/18 10:25 Blood Pressure 136/69 10/01/18 10:25 O2 Sat by Pulse Oximetry (%) 98 10/01/18 10:25 Constitutional: Yes: Calm Cardiovascular: Yes: Regular Rate and Rhythm, S1, S2 Respiratory: Yes: CTA Bilaterally Gastrointestinal: Yes: Normal Bowel Sounds, Soft Edema: Yes Neurological: Yes: Alert, Oriented Labs: CBC, BMP 10/01/18 05:25 10/01/18 05:25 Problem List - Problems (1) Hypoglycemia Assessment/Plan: iv dextrose hold insulin endocrine consult Code(s): E16.2 - HYPOGLYCEMIA, UNSPECIFIED (2) Hypothyroidism Assessment/Plan: tsh synthroid Code(s): E03.9 - HYPOTHYROIDISM, UNSPECIFIED (3) HLD (hyperlipidemia) Assessment/Plan: statin lipid profile Code(s): E78.5 - HYPERLIPIDEMIA, UNSPECIFIED
[2018-10-01] MEDS: fentaNYL 12mcg/hr PATCH.TD72 TD SCH (14:51)
[2018-10-01] MEDS: COLLAGENASE CLOSTRIDIUM HIST. 30 GRAMS TUBE TP SCH (14:51)
[2018-10-01] MEDS: DEXTROSE 5%-0.45% SALINE 1,000 ML IV SCH (21:23)
[2018-10-01] MEDS: SENNOSIDES 8.6MG TABLET (FP) PO SCH (21:24)
[2018-10-01] MEDS: ROSUVASTATIN CA 20 MG TABLET (FP) PO SCH (21:24)
[2018-10-02] MEDS: LEVOTHYROXINE NA 50 MCG TABLET (FP) PO SCH (06:41)
[2018-10-02] MEDS: PREGABALIN 100 MG CAPSULE PO SCH ×3 (06:41→21:50)
[2018-10-02] MEDS: ACETAMINOPHEN 325 MG TABLET (FP) PO PRN (06:41)
[2018-10-02] MEDS: DOCUSATE SODIUM 100 MG CAPSULE (FP) PO SCH ×3 (06:41→21:50)
[2018-10-02 07:43] LABS: CHOLESTEROL 95 mg/dL (50-200); HDL CHOLESTEROL 38 mg/dL (40-60); TRIGLYCERIDES 115 mg/dL (0-150)
[2018-10-02] MEDS: FERROUS SO4 325 MG TABLET (FP) PO SCH (08:43)
[2018-10-02] MEDS ORDERED: PT OWN MED DRAWER 7, Y5N ONE ×3 (08:59→17:35)
--- NOTE | 2018-10-02 09:26 | PN ---
Progress Note, Physician - Current Medication List Current Medications: Active Medications Acetaminophen (Tylenol -) 650 mg PO Q4H PRN PRN Reason: FEVER Last Admin: 10/02/18 06:41 Dose: 650 mg Clopidogrel Bisulfate (Plavix -) 75 mg PO DAILY [facility] Last Admin: 10/01/18 11:05 Dose: 75 mg Collagenase (Santyl -) 1 applic TP DAILY [facility]; Protocol Last Admin: 10/01/18 14:51 Dose: Not Given Docusate Sodium (Colace -) 100 mg PO TID [facility] Last Admin: 10/02/18 06:41 Dose: 100 mg Fentanyl (Duragesic 12mcg Patch -) 1 patch TD Q72H [facility] Last Admin: 10/01/18 14:51 Dose: 1 patch Ferrous Sulfate (Feosol -) 325 mg PO DAILY@0800 [facility] Last Admin: 10/01/18 09:05 Dose: 325 mg Folic Acid (Folic Acid -) 1 mg PO DAILY [facility] Last Admin: 10/01/18 11:05 Dose: 1 mg Dextrose/Sodium Chloride (D5-1/2ns -) 1,000 mls @ 42 mls/hr IV ASDIR [facility] Last Admin: 10/01/18 21:23 Dose: 42 mls/hr Levothyroxine Sodium (Synthroid -) 50 mcg PO DAILY@0700 [facility] Last Admin: 10/02/18 06:41 Dose: 50 mcg Miscellaneous (Duragesic Patch Waste) 1 each TD PRN PRN PRN Reason: PATCH REMOVAL Non-Formulary Medication (Icosapent Ethyl [Vascepa]) 1 gm PO TID [facility] Pantoprazole Sodium (Protonix -) 40 mg PO DAILY [facility] Last Admin: 10/01/18 11:05 Dose: 40 mg Pregabalin (Lyrica -) 100 mg PO TID [facility] Last Admin: 10/02/18 06:41 Dose: 100 mg Ranolazine (Ranexa -) 500 mg PO BID [facility] Last Admin: 10/01/18 21:24 Dose: 500 mg Rosuvastatin Calcium (Crestor -) 40 mg PO HS [facility] Last Admin: 10/01/18 21:24 Dose: 40 mg Senna (Senna -) 2 tab PO HS [facility] Last Admin: 10/01/18 21:24 Dose: 2 tab - Objective Vital Signs: Vital Signs Temperature 98.6 F 10/02/18 06:00 Pulse Rate 86 10/02/18 06:00 Respiratory Rate 17 10/02/18 06:00 Blood Pressure 136/71 10/02/18 06:00 O2 Sat by Pulse Oximetry (%) 98 10/01/18 10:25 Cardiovascular: Yes: Regular Rate and Rhythm Respiratory: Yes: Regular, CTA Bilaterally Gastrointestinal: Yes: Normal Bowel Sounds, Soft Labs: CBC, BMP 10/01/18 05:25 10/01/18 05:25 Problem List - Problems (1) Hypoglycemia Assessment/Plan: Continue cardiac monitoring Seizure Precautions BGMs AC/HS DC D51/2NS Endocrinology consult Hold Insulin Pump Diabetic Diet RD consult Code(s): E16.2 - HYPOGLYCEMIA, UNSPECIFIED (2) Diabetes Assessment/Plan: as above Code(s): E11.9 - TYPE 2 DIABETES MELLITUS WITHOUT COMPLICATIONS Qualifiers: Diabetes mellitus type: type 2 Diabetes mellitus residential insulin use: with hospital nurse liaison use Diabetes mellitus complication status: with unspecified complications Qualified Code(s): E11.8 - Type 2 diabetes mellitus with unspecified complications; Z79.4 - dietitian teaching (current) use of insulin (3) HTN (hypertension) Code(s): I10 - ESSENTIAL (PRIMARY) HYPERTENSION (4) H/O cervical spine surgery Assessment/Plan: Oxycodone and duragesic patch Code(s): Z98.890 - OTHER SPECIFIED POSTPROCEDURAL STATES (5) Hypothyroidism Assessment/Plan: TSH Continue Levothyroxine Code(s): E03.9 - HYPOTHYROIDISM, UNSPECIFIED (6) Hematuria Assessment/Plan: await uc repeat Code(s): R31.9 - HEMATURIA, UNSPECIFIED
[2018-10-02] MEDS: PANTOPRAZOLE 40 MG TABLET (FP) PO SCH (10:42)
[2018-10-02] MEDS: CLOPIDOGREL BISULFATE 75 MG TABLET (FP) PO SCH (10:42)
[2018-10-02] MEDS: RANOLAZINE E.R. 500 MG TABLET (FP) PO SCH ×2 (10:43→21:50)
[2018-10-02] MEDS: FOLIC ACID 1 MG TABLET (FP) PO SCH (11:43)
[2018-10-02] MEDS: COLLAGENASE CLOSTRIDIUM HIST. 30 GRAMS TUBE TP SCH (11:44)
[2018-10-02] MEDS: INSULIN SLIDING SCALE (NOVOLOG) 1 VIAL SQ SCH ×3 (11:44→21:58)
[2018-10-02 14:29] LABS: URINE APPEARANCE CLEAR; URINE BILIRUBIN NEGATIVE (<2.0 mg/dL); URINE COLOR LTYELLOW; URINE GLUCOSE (UA) 3+ (NEGATIVE); URINE KETONE NEGATIVE (NEGATIVE); URINE LEUK ESTERASE NEGATIVE (NEGATIVE); URINE NITRITE NEGATIVE (NEGATIVE); URINE PROTEIN NEGATIVE (NEGATIVE); URINE UROBILINOGEN NEGATIVE mg/dL (0.2-1.0)
[2018-10-02] MEDS: PATIENT'S OWN MEDICATION (NON-FORMULARY) (Icosapent Ethyl [Vascepa] 1 GM) PO SCH (17:06)
[2018-10-02] MEDS ORDERED: INSULIN (NOVOLOG) ASPART 100 UNITS/ML 10ML VIAL ONE (17:35)
[2018-10-02] MEDS: ROSUVASTATIN CA 20 MG TABLET (FP) PO SCH (21:50)
[2018-10-02] MEDS: OMEGA-3 ACID ETHYL ESTERS (FATTY-ACIDS) 1 GM CAPSULE (FP) PO SCH (21:50)
[2018-10-02] MEDS: SENNOSIDES 8.6MG TABLET (FP) PO SCH (21:51)
[2018-10-02] MEDS ORDERED: PATIENT'S OWN MEDICATION (NON-FORMULARY) (Oxycodone Hcl [Oxycodone Hcl] 10 MG) PO SCH (22:00)
--- NOTE | 2018-10-02 22:39 | CONSULT ---
Consult Consult Specialty:: endocrine Referred by:: dr.annabi noyola Reason for Consultation:: diabetes mellitus/hypothyroidism - History of Present Illness Chief Complaint: low sugars unexpected/ difficulty controlling blood sugars History of Present Illness: 58F w/ a history of DM on a pump who presents for evaluation of AMS despite taking insulin schedual as instructed developed low blood sugar.has. The pt's aid then called EMS who performed a finger stick which as in the 70 and gave oral glucose. Upon arrival the patient was aphasic, BGM was found to be in the 20s. she denies history of seizures, or trauma,denies fever chills nausea or vomiting. 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[employer]) History of Recent Travel: No Home Medications - Allergies Allergies/Adverse Reactions: Allergies Allergy/AdvReac Type Severity Reaction Status Date / Time No Known Allergies Allergy Verified 09/30/18 16:22 - Home Medications Home Medications: Ambulatory Orders Levothyroxine [Synthroid -] 50 mcg PO DAILY@0700 tablet 04/17/18 Rosuvastatin Calcium [Crestor] 40 mg PO DAILY 04/30/18 Clopidogrel Bisulfate [Plavix -] 75 mg PO DAILY #30 tablet 06/17/18 FENTANYL 12mcg PATCH [DURAGESIC 12mcg PATCH -] 1 each TD Q72H 08/06/18 Icosapent Ethyl [Vascepa] 1 gm PO TID 08/06/18 Insulin Degludec [Tresiba Flextouch U-100] 60 unit SQ HS 08/06/18 Insulin Pump Syringe, 1.8 ml [Paradigm] 1 each SQ DAILY 08/06/18 Oxycodone HCl 15 mg PO PRN PRN 08/06/18 Pregabalin [Lyrica] 100 mg PO TID 08/06/18 Ranolazine [Ranexa] 500 mg PO BID 08/06/18 Acetaminophen [Tylenol .Regular Strength -] 650 mg PO Q4H PRN tablet 08/11/18 Docusate Sodium [Colace -] 100 mg PO TID #90 capsule 08/11/18 Ferrous Sulfate [Feosol] 325 mg PO DAILY@0800 #30 ud 08/11/18 Folic Acid - 1 mg PO DAILY #30 tablet 08/11/18 Pantoprazole Sodium [Protonix -] 40 mg PO DAILY #30 tablet.ec 08/11/18 Sennosides [Senna -] 2 tab PO HS #60 tablet 08/11/18 Collagenase Clostridium Hist. [Santyl] 90 gm TP DAILY 30 Days #90 grams Family Disease History - Family Disease History Family Disease History: Heart Disease: Father (Thyroid, HTN), Sister (Thyroid, HTN), CA: Father, Sister Review of Systems - Review of Systems Constitutional: reports: Weakness Eyes: reports: Blurred Vision HENT: reports: No Symptoms Neck: reports: Pain on Movement, Stiffness Cardiovascular: reports: Shortness of Breath Respiratory: reports: Exercise Intolerance, SOB on Exertion Gastrointestinal: reports: Bloating, Nausea Genitourinary: reports: No Symptoms Breasts: reports: No Symptoms Reported Musculoskeletal: reports: Joint Swelling, Muscle Pain, Muscle Cramps Endocrine: reports: Increased Thirst, Intolerance to Cold Physical Exam Vital Signs: Vital Signs Temperature 98.5 F 10/02/18 21:05 Pulse Rate 77 10/02/18 21:05 Respiratory Rate 18 10/02/18 21:05 Blood Pressure 123/66 10/02/18 21:05 O2 Sat by Pulse Oximetry (%) 98 10/02/18 14:00 Constitutional: Yes: Anxious, Other HENT: Yes: Normocephalic Neck: Yes: Trachea Midline, Decreased ROM, Tenderness, Thyromegaly Cardiovascular: Yes: Regular Rate and Rhythm Respiratory: Yes: CTA Bilaterally Gastrointestinal: Yes: Normal Bowel Sounds ...Rectal Exam: Yes: Deferred Renal/: Yes: WNL Musculoskeletal: Yes: Back Pain, Joint Swelling, Muscle Pain, Muscle Weakness Edema: No Neurological: Yes: Alert, Oriented Labs: CBC, BMP 10/01/18 05:25 10/01/18 05:25 Problem List - Problems (1) Diabetes Code(s): E11.9 - TYPE 2 DIABETES MELLITUS WITHOUT COMPLICATIONS Qualifiers: Diabetes mellitus type: type 2 Diabetes mellitus natural gas engineer insulin use: with long-term use Diabetes mellitus complication status: with unspecified complications Qualified Code(s): E11.8 - Type 2 diabetes mellitus with unspecified complications; Z79.4 - FDC (current) use of insulin (2) HLD (hyperlipidemia) Code(s): E78.5 - HYPERLIPIDEMIA, UNSPECIFIED (3) HTN (hypertension) Code(s): I10 - ESSENTIAL (PRIMARY) HYPERTENSION (4) Hematuria Code(s): R31.9 - HEMATURIA, UNSPECIFIED (5) Hypoglycemia Code(s): E16.2 - HYPOGLYCEMIA, UNSPECIFIED (6) TIA (transient ischemic attack) Code(s): G45.9 - TRANSIENT CEREBRAL ISCHEMIC ATTACK, UNSPECIFIED Assessment/Plan Current Active Problems Asthma (Acute) Diabetes (Acute) HLD (hyperlipidemia) (Acute) HTN (hypertension) (Acute) Hematuria (Acute) Hypoglycemia (Acute) TIA (transient ischemic attack) (Acute) hypothyroidism patrick Abnormal Lab Results 10/02/18 10/02/18 05:30 09:45 HDL Cholesterol 38 L Urine Glucose (UA) 3+ H Laboratory Results - last 24 hr 10/02/18 10/02/18 10/02/18 05:30 06:37 09:45 POC Glucometer 309 Triglycerides 115 Cholesterol 95 Total LDL Cholesterol 39 HDL Cholesterol 38 L Urine Color Ltyellow Urine Appearance Clear Urine pH 5.[address] [place] 1.014 Urine Protein Negative Urine Glucose (UA) 3+ H Urine Ketones Negative Urine Blood Negative Urine Nitrite Negative Urine Bilirubin Negative Urine Urobilinogen Negative Ur Leukocyte Esterase Negative 10/02/18 10/02/18 10/02/18 11:39 16:35 21:57 POC Glucometer 288 214 287 Triglycerides Cholesterol Total LDL Cholesterol HDL Cholesterol Urine Color Urine Appearance Urine pH Ur Specific [place] Urine Protein Urine Glucose (UA) Urine Ketones Urine Blood Urine Nitrite Urine Bilirubin Urine Urobilinogen Ur Leukocyte Esterase Laboratory Tests 09/24/18 10/01/18 12:16 05:25 Hemoglobin A1c % 8.5 H TSH 1.08 Laboratory Tests 10/02/18 10/02/18 10/02/18 06:37 11:39 16:35 POC Glucometer 309 288 214 10/02/18 21:57 POC Glucometer 287 Laboratory Tests 10/01/18 05:25 Sodium 140 Potassium 4.4 Chloride 102 Carbon Dioxide 31 Anion Gap 7 L BUN 11 Creatinine 0.8 plan: nutrition consult carb counting levemir 20 units am bgm qid novolog scale cgms as outpatient insulin pump to restart
[2018-10-03] MEDS: LEVOTHYROXINE NA 50 MCG TABLET (FP) PO SCH (06:31)
[2018-10-03] MEDS: DOCUSATE SODIUM 100 MG CAPSULE (FP) PO SCH ×4 (06:31→22:36)
[2018-10-03] MEDS: PREGABALIN 100 MG CAPSULE PO SCH ×3 (06:31→21:05)
[2018-10-03] MEDS: ACETAMINOPHEN 325 MG TABLET (FP) PO PRN ×2 (06:36→21:15)
[2018-10-03] MEDS: INSULIN SLIDING SCALE (NOVOLOG) 1 VIAL SQ SCH ×4 (06:38→21:14)
[2018-10-03] MEDS ORDERED: INSULIN (LEVEMIR) 100 UNITS/ML UNITS SQ SCH (07:00)
[2018-10-03] MEDS: PANTOPRAZOLE 40 MG TABLET (FP) PO SCH (09:23)
[2018-10-03] MEDS: FOLIC ACID 1 MG TABLET (FP) PO SCH (09:24)
[2018-10-03] MEDS: FERROUS SO4 325 MG TABLET (FP) PO SCH (09:24)
[2018-10-03] MEDS: RANOLAZINE E.R. 500 MG TABLET (FP) PO SCH ×2 (09:24→21:05)
[2018-10-03] MEDS: CLOPIDOGREL BISULFATE 75 MG TABLET (FP) PO SCH (09:24)
[2018-10-03] MEDS: OMEGA-3 ACID ETHYL ESTERS (FATTY-ACIDS) 1 GM CAPSULE (FP) PO SCH ×2 (09:25→21:06)
[2018-10-03] MEDS: COLLAGENASE CLOSTRIDIUM HIST. 30 GRAMS TUBE TP SCH (09:26)
[2018-10-03] MEDS ORDERED: INSULIN (NOVOLOG) ASPART 100 UNITS/ML 10ML VIAL ONE ×4 (11:36→21:03)
[2018-10-03] MEDS: oxyCODONE HCL 5 MG TABLET PO PRN ×2 (11:37)
--- NOTE | 2018-10-03 12:45 | PN ---
Progress Note, Physician Chief Complaint: Hypoglycemia IDDM History of Present Illness: Previous notes and events reviewed awake and alert NAD denies chest pain, SOB c-collar noted - Current Medication List Current Medications: Active Medications Acetaminophen (Tylenol -) 650 mg PO Q4H PRN PRN Reason: FEVER Last Admin: 10/03/18 06:36 Dose: 650 mg Clopidogrel Bisulfate (Plavix -) 75 mg PO DAILY [facility] Last Admin: 10/03/18 09:24 Dose: 75 mg Collagenase (Santyl -) 1 applic TP DAILY [facility]; Protocol Last Admin: 10/03/18 09:26 Dose: 1 applic Docusate Sodium (Colace -) 100 mg PO TID [facility] Last Admin: 10/03/18 06:31 Dose: 100 mg Fentanyl (Duragesic 12mcg Patch -) 1 patch TD Q72H [facility] Last Admin: 10/01/18 14:51 Dose: 1 patch Ferrous Sulfate (Feosol -) 325 mg PO DAILY@0800 [facility] Last Admin: 10/03/18 09:24 Dose: 325 mg Folic Acid (Folic Acid -) 1 mg PO DAILY [facility] Last Admin: 10/03/18 09:24 Dose: 1 mg Insulin Aspart (Novolog Vial Sliding Scale -) 1 vial SQ ACHS [facility]; Protocol Last Admin: 10/03/18 11:38 Dose: 7 units Insulin Detemir (Levemir Vial) 20 units SQ AM [facility] Last Admin: 10/03/18 06:38 Dose: 20 units Levothyroxine Sodium (Synthroid -) 50 mcg PO DAILY@0700 [facility] Last Admin: 10/03/18 06:31 Dose: 50 mcg Miscellaneous (Duragesic Patch Waste) 1 each TD PRN PRN PRN Reason: PATCH REMOVAL [id number] Ethyl Esters (Lovaza -) 2 gm PO BID [facility] Last Admin: 10/03/18 09:25 Dose: 2 gm Oxycodone HCl (Roxicodone -) 10 mg PO Q12H PRN PRN Reason: PAIN LEVEL 6-10 Last Admin: 10/03/18 11:37 Dose: 10 mg Pantoprazole Sodium (Protonix -) 40 mg PO DAILY [facility] Last Admin: 10/03/18 09:23 Dose: 40 mg Pregabalin (Lyrica -) 100 mg PO TID [facility] Last Admin: 10/03/18 06:31 Dose: 100 mg Ranolazine (Ranexa -) 500 mg PO BID [facility] Last Admin: 10/03/18 09:24 Dose: 500 mg Rosuvastatin Calcium (Crestor -) 40 mg PO [facility] Last Admin: 10/02/18 21:50 Dose: 40 mg Senna (Senna -) 2 tab PO [facility] Last Admin: 10/02/18 21:51 Dose: Not Given - Objective Vital Signs: Vital Signs Temperature 98.2 F 10/03/18 09:18 Pulse Rate 86 10/03/18 09:18 Respiratory Rate 18 10/03/18 09:18 Blood Pressure 139/79 10/03/18 09:18 O2 Sat by Pulse Oximetry (%) 98 10/02/18 21:00 Constitutional: Yes: No Distress, Calm Eyes: Yes: Conjunctiva Clear Cardiovascular: Yes: Regular Rate and Rhythm Respiratory: Yes: Regular, CTA Bilaterally Gastrointestinal: Yes: Normal Bowel Sounds, Soft Musculoskeletal: Yes: WNL Extremities: Yes: WNL Edema: No Wound/Incision: Yes: Dressing Dry and Intact (R heel) Neurological: Yes: Alert, Oriented Psychiatric: Yes: Alert, Oriented Labs: CBC, BMP 10/01/18 05:25 10/01/18 05:25 Microbiology 09/30/18 16:41 Blood - Peripheral Venous Blood Culture - Preliminary NO GROWTH OBTAINED AFTER 48 HOURS, INCUBATION TO CONTINUE FOR 3 DAYS. 09/30/18 16:41 Blood - Peripheral Venous Blood Culture - Preliminary NO GROWTH OBTAINED AFTER 48 HOURS, INCUBATION TO CONTINUE FOR 3 DAYS. 09/30/18 16:41 Urine - Urine Clean Catch Urine Culture - Final Contaminated: Please Repeat <Bhavya Pollock - Last Filed: 10/03/18 12:40> - Current Medication List Current Medications: Active Medications Acetaminophen (Tylenol -) 650 mg PO Q4H PRN PRN Reason: FEVER Last Admin: 10/03/18 21:15 Dose: 650 mg Clopidogrel Bisulfate (Plavix -) 75 mg PO DAILY [facility] Last Admin: 10/03/18 09:24 Dose: 75 mg Collagenase (Santyl -) 1 applic TP DAILY [facility]; Protocol Last Admin: 10/03/18 09:26 Dose: 1 applic Docusate Sodium (Colace -) 100 mg PO TID [facility] Last Admin: 10/04/18 06:00 Dose: Not Given Fentanyl (Duragesic 12mcg Patch -) 1 patch TD Q72H [facility] Last Admin: 10/01/18 14:51 Dose: 1 patch Ferrous Sulfate (Feosol -) 325 mg PO DAILY@0800 [facility] Last Admin: 10/03/18 09:24 Dose: 325 mg Folic Acid (Folic Acid -) 1 mg PO DAILY [facility] Last Admin: 10/03/18 09:24 Dose: 1 mg Insulin Aspart (Novolog Vial Sliding Scale -) 1 vial SQ [facility]; Protocol Last Admin: 10/04/18 06:17 Dose: 5 units Insulin Detemir (Levemir Vial) 40 units SQ AM [facility] Last Admin: 10/04/18 06:17 Dose: 40 units Insulin Detemir (Levemir Vial) 15 units SQ HS [facility] Last Admin: 10/03/18 21:06 Dose: 15 units Levothyroxine Sodium (Synthroid -) 50 mcg PO DAILY@0700 [facility] Last Admin: 10/04/18 06:17 Dose: 50 mcg Miscellaneous (Duragesic Patch Waste) 1 each TD PRN PRN PRN Reason: PATCH REMOVAL Knryl-9-Rpoo Ethyl Esters (Lovaza -) 2 gm PO BID [facility] Last Admin: 10/03/18 21:06 Dose: 2 gm Oxycodone HCl (Roxicodone -) 10 mg PO Q12H PRN PRN Reason: PAIN LEVEL 6-10 Last Admin: 10/03/18 11:37 Dose: 10 mg Pantoprazole Sodium (Protonix -) 40 mg PO DAILY [facility] Last Admin: 10/03/18 09:23 Dose: 40 mg Pregabalin (Lyrica -) 100 mg PO TID [facility] Last Admin: 10/04/18 06:17 Dose: 100 mg Ranolazine (Ranexa -) 500 mg PO BID [facility] Last Admin: 10/03/18 21:05 Dose: 500 mg Rosuvastatin Calcium (Crestor -) 40 mg PO [facility] Last Admin: 10/03/18 21:05 Dose: 40 mg Senna (Senna -) 2 tab PO [facility] Last Admin: 10/03/18 22:37 Dose: Not Given - Objective Vital Signs: Vital Signs Temperature 97.9 F 10/04/18 02:00 Pulse Rate 78 10/04/18 02:00 Respiratory Rate 18 10/04/18 02:00 Blood Pressure 113/52 L 10/04/18 02:00 O2 Sat by Pulse Oximetry (%) 98 10/03/18 10:00 Labs: CBC, BMP 10/04/18 05:45 10/04/18 05:45 <Dimitry Blevins - Last Filed: 10/04/18 09:11> Problem List - Problems (1) Diabetes Assessment/Plan: -endocrinology on board -RD consult -BGM ACHS, ISS -Levemir daily -calorie count initiated Code(s): E11.9 - TYPE 2 DIABETES MELLITUS WITHOUT COMPLICATIONS Qualifiers: Diabetes mellitus type: type 2 Diabetes mellitus mcfp insulin use: with exterminator use Diabetes mellitus complication status: with unspecified complications Qualified Code(s): E11.8 - Type 2 diabetes mellitus with unspecified complications; Z79.4 - long term care pharmacist (current) use of insulin (2) HLD (hyperlipidemia) Assessment/Plan: -cont with rosuvastatin -lipid panel reviewed Code(s): E78.5 - HYPERLIPIDEMIA, UNSPECIFIED (3) HTN (hypertension) Assessment/Plan: -low Na diet -monitor BP, no home meds Code(s): I10 - ESSENTIAL (PRIMARY) HYPERTENSION (4) H/O cervical spine surgery Assessment/Plan: -cont with c-collar -pain management Code(s): Z98.890 - OTHER SPECIFIED POSTPROCEDURAL STATES <Bhavya Pollock - Last Filed: 10/03/18 12:40> Assessment/Plan dvt ppx <Bhavya Pollock - Last Filed: 10/03/18 12:40> PATIENT SEEN AND EXAMINED AND I AGREE WITH THE ABOVE NOTE <Dimitry Blevins - Last Filed: 10/04/18 09:11>
[2018-10-03] MEDS ORDERED: PT OWN MED DRAWER 7, Y5N ONE (17:55)
--- NOTE | 2018-10-03 20:41 | PN ---
Progress Note, Physician Chief Complaint: no complaint History of Present Illness: dm 2 hyperglycmia insulin doses adjusted sp hypoglycemia no further sequela tolerating diet and insulin doses - Current Medication List Current Medications: Active Medications Acetaminophen (Tylenol -) 650 mg PO Q4H PRN PRN Reason: FEVER Last Admin: 10/03/18 06:36 Dose: 650 mg Clopidogrel Bisulfate (Plavix -) 75 mg PO DAILY [facility] Last Admin: 10/03/18 09:24 Dose: 75 mg Collagenase (Santyl -) 1 applic TP DAILY [facility]; Protocol Last Admin: 10/03/18 09:26 Dose: 1 applic Docusate Sodium (Colace -) 100 mg PO TID [facility] Last Admin: 10/03/18 15:23 Dose: Not Given Fentanyl (Duragesic 12mcg Patch -) 1 patch TD Q72H [facility] Last Admin: 10/01/18 14:51 Dose: 1 patch Ferrous Sulfate (Feosol -) 325 mg PO DAILY@0800 [facility] Last Admin: 10/03/18 09:24 Dose: 325 mg Folic Acid (Folic Acid -) 1 mg PO DAILY [facility] Last Admin: 10/03/18 09:24 Dose: 1 mg Insulin Aspart (Novolog Vial Sliding Scale -) [address] [facility]; Protocol Last Admin: 10/03/18 17:01 Dose: 7 units Insulin Detemir (Levemir Vial) 40 units SQ AM [facility] Insulin Detemir (Levemir Vial) 15 units SQ HS [facility] Levothyroxine Sodium (Synthroid -) 50 mcg PO DAILY@0700 [facility] Last Admin: 10/03/18 06:31 Dose: 50 mcg Miscellaneous (Duragesic Patch Waste) 1 each TD PRN PRN PRN Reason: PATCH REMOVAL [id number]-4-[id number] Ethyl Esters (Lovaza -) 2 gm PO BID [facility] Last Admin: 10/03/18 09:25 Dose: 2 gm Oxycodone HCl (Roxicodone -) 10 mg PO Q12H PRN PRN Reason: PAIN LEVEL 6-10 Last Admin: 10/03/18 11:37 Dose: 10 mg Pantoprazole Sodium (Protonix -) 40 mg PO DAILY [facility] Last Admin: 10/03/18 09:23 Dose: 40 mg Pregabalin (Lyrica -) 100 mg PO TID [facility] Last Admin: 10/03/18 15:29 Dose: 100 mg Ranolazine (Ranexa -) 500 mg PO BID [facility] Last Admin: 10/03/18 09:24 Dose: 500 mg Rosuvastatin Calcium (Crestor -) 40 mg PO [facility] Last Admin: 10/02/18 21:50 Dose: 40 mg Senna (Senna -) 2 tab PO [facility] Last Admin: 10/02/18 21:51 Dose: Not Given - Objective Vital Signs: Vital Signs Temperature 98.8 F 10/03/18 18:15 Pulse Rate 86 10/03/18 18:15 Respiratory Rate 18 10/03/18 18:15 Blood Pressure 122/69 10/03/18 18:15 O2 Sat by Pulse Oximetry (%) 98 10/03/18 10:00 Constitutional: Yes: Well Nourished Eyes: Yes: EOM Intact HENT: Yes: Normocephalic Neck: Yes: Trachea Midline Cardiovascular: Yes: Regular Rate and Rhythm Respiratory: Yes: CTA Bilaterally Gastrointestinal: Yes: WNL ...Rectal Exam: Yes: Deferred Genitourinary: Yes: WNL Extremities: Yes: WNL Neurological: Yes: Alert, Oriented Labs: CBC, BMP 10/01/18 05:25 10/01/18 05:25 Problem List - Problems (1) Diabetes Code(s): E11.9 - TYPE 2 DIABETES MELLITUS WITHOUT COMPLICATIONS Qualifiers: Diabetes mellitus type: type 2 Diabetes mellitus fci insulin use: with fci use Diabetes mellitus complication status: with unspecified complications Qualified Code(s): E11.8 - Type 2 diabetes mellitus with unspecified complications; Z79.4 - group home (current) use of insulin (2) HLD (hyperlipidemia) Code(s): E78.5 - HYPERLIPIDEMIA, UNSPECIFIED (3) HTN (hypertension) Code(s): I10 - ESSENTIAL (PRIMARY) HYPERTENSION (4) Hematuria Code(s): R31.9 - HEMATURIA, UNSPECIFIED (5) Hypoglycemia Code(s): E16.2 - HYPOGLYCEMIA, UNSPECIFIED (6) TIA (transient ischemic attack) Code(s): G45.9 - TRANSIENT CEREBRAL ISCHEMIC ATTACK, UNSPECIFIED Assessment/Plan Current Active Problems Asthma (Acute) Diabetes (Acute) HLD (hyperlipidemia) (Acute) HTN (hypertension) (Acute) Hematuria (Acute) Hypoglycemia (Acute) TIA (transient ischemic attack) (Acute) Laboratory Results - last 24 hr 10/02/18 10/03/18 10/03/18 21:57 05:50 11:28 POC Glucometer 287 211 321 10/03/18 16:27 POC Glucometer 325 plan: levemir 40 units am levemir 15 units hs qid novolog insulin coverage bgm Laboratory Tests 09/24/18 12:16 Hemoglobin A1c % 8.5 H
[2018-10-03] MEDS: ROSUVASTATIN CA 20 MG TABLET (FP) PO SCH (21:05)
[2018-10-03] MEDS: SENNOSIDES 8.6MG TABLET (FP) PO SCH ×2 (21:05→22:37)
[2018-10-03] MEDS: INSULIN (LEVEMIR) 100 UNITS/ML UNITS SQ SCH (21:06)
[2018-10-03] MEDS ORDERED: oxyCODONE HCL 5 MG TABLET PO ONE (22:02)
[2018-10-04] MEDS: DOCUSATE SODIUM 100 MG CAPSULE (FP) PO SCH ×3 (06:00→21:44)
[2018-10-04] MEDS: INSULIN (LEVEMIR) 100 UNITS/ML UNITS SQ SCH ×2 (06:17→21:45)
[2018-10-04] MEDS: PREGABALIN 100 MG CAPSULE PO SCH ×3 (06:17→21:46)
[2018-10-04] MEDS: INSULIN SLIDING SCALE (NOVOLOG) 1 VIAL SQ SCH ×4 (06:17→21:44)
[2018-10-04] MEDS: LEVOTHYROXINE NA 50 MCG TABLET (FP) PO SCH (06:17)
[2018-10-04 07:17] LABS: HEMATOCRIT 38.2 % (32.4-45.2); HEMOGLOBIN 13.3 GM/dL (10.7-15.3); MCH 30.3 pg (25.7-33.7); MCHC 34.9 g/dl (32.0-36.0); MEAN CELL VOLUME 86.8 fl (80-96); MEAN PLT VOLUME 8.3 fl (7.5-11.1); PLATELET COUNT 247 K/MM3 (134-434); RDW 13.6 % (11.6-15.6); WHITE BLOOD COUNT 9.3 K/mm3 (4.0-10.0)
[2018-10-04 07:49] LABS: ALBUMIN 3.5 g/dl (3.4-5.0); ALK PHOS 80 U/L (45-117); ANION GAP 6 MMOL/L (8-16); BILIRUBIN,TOTAL 0.4 mg/dL (0.2-1); BLOOD UREA NITROGEN 12 mg/dL (7-18); CALCIUM 8.9 mg/dL (8.5-10.1); CHLORIDE 102 mmol/L (98-107); CO2 30 mmol/L (21-32); CREATININE 0.7 mg/dL (0.55-1.3); GLUCOSE,RANDOM 254 mg/dL (74-106); POTASSIUM 3.9 mmol/L (3.5-5.1); SGOT/AST 10 U/L (15-37); SGPT/ALT 15 U/L (13-61); SODIUM 138 mmol/L (136-145); TOT PROT 6.5 g/dl (6.4-8.2)
[2018-10-04] MEDS ORDERED: PT OWN MED DRAWER 7, Y5N ONE (09:53)
[2018-10-04] MEDS: RANOLAZINE E.R. 500 MG TABLET (FP) PO SCH ×2 (10:02→22:08)
[2018-10-04] MEDS: FERROUS SO4 325 MG TABLET (FP) PO SCH (10:02)
[2018-10-04] MEDS: CLOPIDOGREL BISULFATE 75 MG TABLET (FP) PO SCH (10:02)
[2018-10-04] MEDS: OMEGA-3 ACID ETHYL ESTERS (FATTY-ACIDS) 1 GM CAPSULE (FP) PO SCH ×2 (10:02→21:46)
[2018-10-04] MEDS: FOLIC ACID 1 MG TABLET (FP) PO SCH (10:02)
[2018-10-04] MEDS: PANTOPRAZOLE 40 MG TABLET (FP) PO SCH (10:02)
[2018-10-04] MEDS: fentaNYL 12mcg/hr PATCH.TD72 TD SCH (10:03)
--- NOTE | 2018-10-04 12:00 | PN ---
Progress Note, Physician Chief Complaint: Hypoglycemia IDDM History of Present Illness: Previous notes and events reviewed awake and alert NAD denies chest pain, SOB c-collar noted complain of sharp R shoulder pain - Current Medication List Current Medications: Active Medications Acetaminophen (Tylenol -) 650 mg PO Q4H PRN PRN Reason: FEVER Last Admin: 10/03/18 21:15 Dose: 650 mg Clopidogrel Bisulfate (Plavix -) 75 mg PO DAILY [facility] Last Admin: 10/04/18 10:02 Dose: 75 mg Collagenase (Santyl -) 1 applic TP DAILY [facility]; Protocol Last Admin: 10/03/18 09:26 Dose: 1 applic Docusate Sodium (Colace -) 100 mg PO TID [facility] Last Admin: 10/04/18 06:00 Dose: Not Given Fentanyl (Duragesic 12mcg Patch -) 1 patch TD Q72H [facility] Last Admin: 10/04/18 10:03 Dose: 1 patch Ferrous Sulfate (Feosol -) 325 mg PO DAILY@0800 [facility] Last Admin: 10/04/18 10:02 Dose: 325 mg Folic Acid (Folic Acid -) 1 mg PO DAILY [facility] Last Admin: 10/04/18 10:02 Dose: 1 mg Insulin Aspart (Novolog Vial Sliding Scale -) 1 vial SQ ACHS [facility]; Protocol Last Admin: 10/04/18 06:17 Dose: 5 units Insulin Detemir (Levemir Vial) 40 units SQ AM [facility] Last Admin: 10/04/18 06:17 Dose: 40 units Insulin Detemir (Levemir Vial) 15 units SQ HS [facility] Last Admin: 10/03/18 21:06 Dose: 15 units Levothyroxine Sodium (Synthroid -) 50 mcg PO DAILY@0700 [facility] Last Admin: 10/04/18 06:17 Dose: 50 mcg Miscellaneous (Duragesic Patch Waste) 1 each TD PRN PRN PRN Reason: PATCH REMOVAL Last Admin: 10/04/18 10:15 Dose: 1 each Mketd-2-Hdtz Ethyl Esters (Lovaza -) 2 gm PO BID [facility] Last Admin: 10/04/18 10:02 Dose: 2 gm Oxycodone HCl (Roxicodone -) 10 mg PO Q12H PRN PRN Reason: PAIN LEVEL 6-10 Last Admin: 10/03/18 11:37 Dose: 10 mg Pantoprazole Sodium (Protonix -) 40 mg PO DAILY [facility] Last Admin: 10/04/18 10:02 Dose: 40 mg Pregabalin (Lyrica -) 100 mg PO TID [facility] Last Admin: 10/04/18 06:17 Dose: 100 mg Ranolazine (Ranexa -) 500 mg PO BID [facility] Last Admin: 10/04/18 10:02 Dose: 500 mg Rosuvastatin Calcium (Crestor -) 40 mg PO [facility] Last Admin: 10/03/18 21:05 Dose: 40 mg Senna (Senna -) 2 tab PO [facility] Last Admin: 10/03/18 22:37 Dose: Not Given - Objective Vital Signs: Vital Signs Temperature 97.9 F 10/04/18 08:20 Pulse Rate 78 10/04/18 08:20 Respiratory Rate 18 10/04/18 08:20 Blood Pressure 119/62 10/04/18 08:20 O2 Sat by Pulse Oximetry (%) 98 10/03/18 10:00 Constitutional: Yes: Well Nourished, No Distress, Calm Eyes: Yes: Conjunctiva Clear Neck: Yes: Other (c-collar) Cardiovascular: Yes: Regular Rate and Rhythm Respiratory: Yes: Regular, CTA Bilaterally Gastrointestinal: Yes: Normal Bowel Sounds, Soft Musculoskeletal: Yes: WNL Extremities: Yes: WNL Edema: No Neurological: Yes: Alert, Oriented Psychiatric: Yes: Alert, Oriented Labs: CBC, BMP 10/04/18 05:45 10/04/18 05:45 Problem List - Problems (1) Diabetes Assessment/Plan: -endocrinology on board and instructed to follow up as outpatient -RD consult -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 insulin use: with petroleum terminal plant operator use Diabetes mellitus complication status: with unspecified complications Qualified Code(s): E11.8 - Type 2 diabetes mellitus with unspecified complications; Z79.4 - prison (current) use of insulin (2) HLD (hyperlipidemia) Assessment/Plan: -cont with rosuvastatin -lipid panel reviewed Code(s): E78.5 - HYPERLIPIDEMIA, UNSPECIFIED (3) HTN (hypertension) Assessment/Plan: -low Na diet -monitor BP, no home meds Code(s): I10 - ESSENTIAL (PRIMARY) HYPERTENSION (4) H/O cervical spine surgery Assessment/Plan: -cont with c-collar -pain management Code(s): Z98.890 - OTHER SPECIFIED POSTPROCEDURAL STATES Assessment/Plan dvt ppx 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
[2018-10-04] MEDS: ACETAMINOPHEN 325 MG TABLET (FP) PO ONE ×3 (12:40→14:29)
[2018-10-04] MEDS: oxyCODONE HCL 5 MG TABLET PO ONE ×2 (12:44→14:30)
[2018-10-04] MEDS: ACETAMINOPHEN 325 MG TABLET (FP) PO PRN (13:15)
[2018-10-04] MEDS: oxyCODONE HCL 5 MG TABLET PO PRN (13:15)
[2018-10-04 15:33] VITALS: BMI 41.6
[2018-10-04] MEDS: COLLAGENASE CLOSTRIDIUM HIST. 30 GRAMS TUBE TP SCH (16:00)
[2018-10-04] MEDS ORDERED: INSULIN (NOVOLOG) ASPART 100 UNITS/ML 10ML VIAL ONE (20:52)
[2018-10-04] MEDS: SENNOSIDES 8.6MG TABLET (FP) PO SCH (21:44)
[2018-10-04] MEDS: ROSUVASTATIN CA 20 MG TABLET (FP) PO SCH (21:46)
[2018-10-05] MEDS: oxyCODONE HCL 5 MG TABLET PO PRN ×2 (01:02→14:20)
[2018-10-05] MEDS: ACETAMINOPHEN 325 MG TABLET (FP) PO PRN ×2 (02:55→08:16)
[2018-10-05] MEDS: DOCUSATE SODIUM 100 MG CAPSULE (FP) PO SCH ×2 (05:08→14:21)
[2018-10-05] MEDS: PREGABALIN 100 MG CAPSULE PO SCH ×2 (06:16→14:19)
[2018-10-05] MEDS: LEVOTHYROXINE NA 50 MCG TABLET (FP) PO SCH (06:16)
[2018-10-05] MEDS: INSULIN SLIDING SCALE (NOVOLOG) 1 VIAL SQ SCH ×2 (06:16→13:08)
[2018-10-05] MEDS: INSULIN (LEVEMIR) 100 UNITS/ML UNITS SQ SCH (06:17)
[2018-10-05] MEDS: FERROUS SO4 325 MG TABLET (FP) PO SCH (08:10)
[2018-10-05] MEDS ORDERED: PT OWN MED DRAWER 7, Y5N ONE (10:19)
[2018-10-05] MEDS: CLOPIDOGREL BISULFATE 75 MG TABLET (FP) PO SCH (10:21)
[2018-10-05] MEDS: PANTOPRAZOLE 40 MG TABLET (FP) PO SCH (10:21)
[2018-10-05] MEDS: OMEGA-3 ACID ETHYL ESTERS (FATTY-ACIDS) 1 GM CAPSULE (FP) PO SCH (10:21)
[2018-10-05] MEDS: RANOLAZINE E.R. 500 MG TABLET (FP) PO SCH (11:16)
[2018-10-05] MEDS: FOLIC ACID 1 MG TABLET (FP) PO SCH (11:16)
--- NOTE | 2018-10-05 13:11 | DS ---
Physical Examination Vital Signs: Vital Signs Temperature 98.5 F 10/05/18 03:02 Pulse Rate 76 10/05/18 03:02 Respiratory Rate 18 10/05/18 03:02 Blood Pressure 106/56 L 10/05/18 03:02 O2 Sat by Pulse Oximetry (%) 98 10/04/18 21:00 Constitutional: Yes: Calm Neck: Yes: Other (neck collar) Cardiovascular: Yes: Regular Rate and Rhythm, S1, S2 Respiratory: Yes: CTA Bilaterally Gastrointestinal: Yes: Normal Bowel Sounds, Soft Labs: CBC, BMP 10/04/18 05:45 10/04/18 05:45 Discharge Summary Reason For Visit: DIABETES MELLITUS HYPOGLYCEMIA MORBID OBESITY DUE Current Active Problems Asthma (Acute) Diabetes (Acute) HLD (hyperlipidemia) (Acute) HTN (hypertension) (Acute) Hematuria (Acute) Hypoglycemia (Acute) TIA (transient ischemic attack) (Acute) Hospital Course: patient came in for hypoglycemia seen by endocrine and BGM noted insulin regimen adjusted Condition: Guarded - Instructions Disposition: HOME - Home Medications Comprehensive Discharge Medication List: Ambulatory Orders Levothyroxine [Synthroid -] 50 mcg PO DAILY@0700 tablet 04/17/18 Rosuvastatin Calcium [Crestor] 40 mg PO DAILY 04/30/18 Clopidogrel Bisulfate [Plavix -] 75 mg PO DAILY #30 tablet 06/17/18 FENTANYL 12mcg PATCH [DURAGESIC 12mcg PATCH -] 1 each TD Q72H 08/06/18 Icosapent Ethyl [Vascepa] 1 gm PO TID 08/06/18 Insulin Degludec [Tresiba Flextouch U-100] 60 unit SQ HS 08/06/18 Insulin Pump Syringe, 1.8 ml [Paradigm] 1 each SQ DAILY 08/06/18 Oxycodone HCl 15 mg PO PRN PRN 08/06/18 Pregabalin [Lyrica] 100 mg PO TID 08/06/18 Ranolazine [Ranexa] 500 mg PO BID 08/06/18 Acetaminophen [Tylenol .Regular Strength -] 650 mg PO Q4H PRN tablet 08/11/18 Docusate Sodium [Colace -] 100 mg PO TID #90 capsule 08/11/18 Ferrous Sulfate [Feosol] 325 mg PO DAILY@0800 #30 ud 08/11/18 Folic Acid - 1 mg PO DAILY #30 tablet 08/11/18 Pantoprazole Sodium [Protonix -] 40 mg PO DAILY #30 tablet.ec 08/11/18 Sennosides [Senna -] 2 tab PO HS #60 tablet 08/11/18 Collagenase Clostridium Hist. [Santyl] 90 gm TP DAILY 30 Days #90 grams
[2018-10-05] MEDS: COLLAGENASE CLOSTRIDIUM HIST. 30 GRAMS TUBE TP SCH (13:29)
[2018-10-05] MEDS ORDERED: ACETAMINOPHEN 325 MG TABLET (FP) PO PRN (14:35)
[2018-10-05 15:32] VITALS: BP 134/72; PULSE 93; TEMP 97.3
== END 2018-10-05 03:25 | disposition home or self-care (01) | DRG 637 ==
LOC: JER 16:10 → JERBED 19:37 → J4W 10-01 14:00 → J5S 10-02 14:00
PROVIDERS: ADMIT Family Medicine; ATTEND Family Medicine
DX: E11.649 Type 2 diabetes mellitus with hypoglycemia without coma (principal); G93.41 Metabolic encephalopathy; Z68.41 Body mass index [BMI] 40.0-44.9, adult; G81.91 Hemiplegia, unspecified affecting right dominant side; I10 Essential (primary) hypertension; E66.01 Morbid (severe) obesity due to excess calories; E78.5 Hyperlipidemia, unspecified; J45.909 Unspecified asthma, uncomplicated; E03.9 Hypothyroidism, unspecified; Z98.890 Other specified postprocedural states; R31.9 Hematuria, unspecified; R56.9 Unspecified convulsions; Z87.891 Personal history of nicotine dependence; Z79.4 Long term (current) use of insulin; Z86.73 Personal history of transient ischemic attack (TIA), and cerebral infarction without residual deficits
CPT/HCPCS: 36415; 70450-TC; 71045-TC-FY; 80048; 80053; 80061; 81003; 81015; 82550; 82803; 82962; 83605; 83721; 83735; 84443; 84484; 85025; 85027; 85730; 87040; 87086; 93005; 93010; 93922; 93925-TC; 97116-GP; 97161-GP; 99283-25; J7030